=== PATIENT | female | born 1975 | race Caucasian/White ===

== ENCOUNTER 2016-05-06 11:01 | Emergency (ER) ==
--- NOTE | 2016-05-06 11:34 | PROVIDER DOCUMENTATION ---
HPI-Abdominal Pain/GI Problem <Katerine Frausto - Last Filed: 05/06/16 12:42> - General Source: patient - History of Present Illness-ABD Nature of Presenting Problems: 2 days diarrhea x 10 no blood no vomiting just nauseated belly pain nasal congestion Abdominal Pain Onset Location: reports: generalized abdomen Pain Radiation: reports: no radiation Quality of Pain: reports: cramping Severity in ED: reports: moderate Onset/Duration: reports: 2 days ago Timing: reports: still present, constant Activities at Onset: reports: none Exposure to sick contacts?: No Modifying Factors: improves with: nothing Associated Symptoms: reports: diarrhea, loss of appetite, nausea, weakness. denies: constipation, fever/chills, vomiting Last BM: this morning Dark Stools Present?: reports: none noticed Rectal Bleeding: reports: none # of Diarrhea Episodes: 10 Rectal Pain: reports: none # of Vomiting Episodes: 0 <Jensen Higgins - Last Filed: 05/06/16 13:02> - General Chief Complaint: Diarrhea Stated Complaint: COLD SX/ABD PX/DIARRHEA Time Seen by Provider: 05/06/16 11:28 Allergies/Adverse Reactions: Patient Allergies Allergy/AdvReac Type Severity Reaction Status Date / Time Sulfa (Sulfonamide Allergy Severe ANAPHYLAXIS Verified 03/07/16 18:05 Antibiotics) egg Allergy ANAPHYLAXIS Verified 03/07/16 18:05 nut - unspecified Allergy ANAPHYLAXIS Verified 03/07/16 18:05 milk AdvReac Unknown Verified 03/07/16 18:05 tree nut AdvReac Unknown Verified 03/07/16 18:05 Home Medications: Home Medication List Medication Instructions Recorded Confirmed Last Taken Type Albuterol Sulfate [Proair Hfa] 2 puff IH Q4H PRN PRN 11/24/14 03/07/16 11/04/15 History Ondansetron [Zofran] 4 mg PO Q6H PRN PRN #20 tablet 11/04/15 03/07/16 Unknown Rx Albuterol 2.5MG/Ipratrop 0.5MG 3 ml INH Q4-6H PRN PRN 11/15/15 03/07/16 Unknown History [Duoneb (A & A)] Buspirone HCl [Buspar] 10 mg PO BID PRN PRN 11/15/15 03/07/16 Unknown History Fexofenadine/Pse E.r. 12 Hr 1 each PO DAILY 11/15/15 03/07/16 Unknown History [Gaby-D 12 Hour] Polyethylene Glycol 3350 [Miralax] 17 gm PO DAILY 11/15/15 03/07/16 Unknown History Zolpidem [Ambien] 5 mg PO HS #30 tablet 11/17/15 03/07/16 Unknown Rx Doxycycline 100 mg PO BID #60 capsule 03/06/16 03/07/16 Unknown Rx Fluticasone/Salmet 500/50 INH 1 puff INH RTBID #3 inhaler 03/06/16 03/07/16 Unknown Rx [Advair 500/50 Diskus] Amoxicillin [Amoxil] 875 mg PO BID #14 tablet 03/07/16 Unknown Rx Chlorpheniramine/Dextromethorp 1 each PO Q6H PRN PRN #30 tablet 03/07/16 Unknown Rx [Coricidin Hbp Cough & Cold Tab] Prednisone 20 mg PO DAILY #15 tablet 03/07/16 Unknown Rx Diphenoxylate/Atropine [Lomotil] 1 each PO 4XDAY PRN PRN #20 tablet 05/06/16 Unknown Rx Guaifenesin/Codeine [Robitussin-AC] 10 ml PO Q4H PRN PRN #8 oz 05/06/16 Unknown Rx Review of Systems - Adult - REVIEW OF SYSTEMS - ADULT Constitutional: denies: chills, fever, fatique, night sweats Eyes: denies: discharge, redness Ears, Nose, Mouth & Throat: reports: sinus problem. denies: ear pain, throat pain Cardiovascular: denies: chest pain, irregular heart rate, palpitations Respiratory: reports: cough, shortness of breath. denies: hemoptysis, wheezing Genitourinary: reports: see HPI Musculoskeletal: reports: muscle aches Integumentary: reports: no symptoms reported Neurological: denies: headache/migraines Endocrine: reports: no symptoms reported Hematologic/Lymphatic: reports: no symptoms reported Allergic/Immunologic: reports: no symptoms reported <Jensen Higgins - Last Filed: 05/06/16 13:02> Past History - Adult - PAST MEDICAL HISTORY-ADULT Review of Records: reports: Nursing Assessment Review, Medications Reviewed, Social history reviewed & non-contributory. Cardiovascular: reports: HTN Respiratory: reports: asthma Psychiatric: reports: anxiety, depression - PRIOR SURGERIES/PROCEDURES Surgical/Procedure History: reports: , orthopedic (extremity) (elbow Sx ), other (breast Sx) - PRIOR HOSPITALIZATIONS Prior Hospitalizations: reports: none - IMMUNIZATION STATUS Childhood Immunizations: See Nurse Assessment Flu Vaccine: See Nurse Assessment - FAMILY HISTORY Family History: reviewed, not pertinent <Jensen Higgins - Last Filed: 05/06/16 13:02> Physical Exam-General - PHYSICAL EXAM-ADULT Initial Vital Signs Reviewed: Yes - CONSTITUTIONAL General Appearance: mild distress - EYES Eyes: PERRL/EOMI, pink conjunctivae - HEAD, EARS, NOSE, MOUTH & THROAT HENMT: normocephalic/atraumatic, TMs normal, pharynx normal - NECK Neck: full range of motion, supple - RESPIRATORY Respiratory: lungs clear - CARDIOVASCULAR Cardiovascular: regular rate, rhythm - GASTROINTESTINAL (ABDOMEN) Abdominal Exam: soft - MUSCULOSKELETAL Extremity: normal range of motion <Jensen Higgins - Last Filed: 05/06/16 13:02> Progress - PLAN OF CARE/RESULTS Progress/Plan/Lab Results: Orders Category Date Time Status ED: Urine Bedside ORDERED Care 05/06/16 11:34 Active Saline Loc DIRECTED Care 05/06/16 11:34 Active NPO Diet 05/06/16 11:34 Active AMYLASE [CHEM] Stat Lab 05/06/16 11:47 Received CBC WITH ELECTRONIC DIFF [HEME] Stat Lab 05/06/16 11:34 Ordered COMPREHENSIVE METABOLIC PANEL [CHEM] Stat Lab 05/06/16 11:47 Received LIPASE [CHEM] Stat Lab 05/06/16 11:[address] W/POSS RFLX CULT [URINALYSIS] Stat Lab 05/06/16 11:34 Uncollected 0.9% Sodium Chloride Inj [Ns] 1,000 ml Med 05/06/16 11:35 Active IV 999 mls/hr Ondansetron [Zofran] Med 05/06/16 11:36 Discontinued 4 mg IV NOW ONE Vital Signs - 24 hr 05/06/16 11:07 Temperature 97.9 F Pulse Rate 101 H Respiratory 20 Rate Blood Pressure 147/86 O2 Sat by Pulse 98 Oximetry Laboratory Tests 05/06/16 05/06/16 11:47 12:03 WBC 7.72 RBC 4.76 Hgb 11.7 L Hct 36.0 L MCV 75.6 L MCH 24.6 L MCHC 32.5 L RDW Std Deviation 16.0 H Plt Count 315 MPV 9.8 Immature Gran % (Auto) 0.1 Neut % (Auto) 71.6 Lymph % (Auto) 16.1 L Jenkins % (Auto) 6.9 Eos % (Auto) 4.7 Baso % (Auto) 0.6 Immature Gran # (Auto) 0.01 Neut # (Auto) 5.53 Lymph # (Auto) 1.24 Jenkins # (Auto) 0.53 Eos # (Auto) 0.36 Baso # (Auto) 0.05 Sodium 137 Potassium 3.7 Chloride 103 Carbon Dioxide 20 L Anion Gap 14 BUN 9 Creatinine 0.7 Estimated GFR/1.73 m2 > 60 BUN/Creatinine Ratio 13 Glucose 105 H Calculated Osmolality 273 Calcium 9.4 Total Bilirubin 0.40 AST 27 ALT 20 Alkaline Phosphatase 74 Total Protein 7.7 Albumin 4.1 Globulin 4.0 Albumin/Globulin Ratio 1.0 Amylase 19 L Lipase 18 <Katerine Frausto - Last Filed: 05/06/16 12:42> Departure <Katerine Frausto - Last Filed: 05/06/16 12:42> - Departure Time of Disposition Order: 12:59 Certified Medical Emergency: Emergent <Jensen Higgins - Last Filed: 05/06/16 13:02> - Departure DIAGNOSIS: Diarrhea Qualifiers: Diarrhea type: unspecified type Qualified Code(s): R19.7 - Diarrhea, unspecified URI (upper respiratory infection) Qualifiers: URI type: unspecified viral URI Qualified Code(s): J06.9 - Acute upper respiratory infection, unspecified; B97.89 - Other viral agents as the cause of diseases classified elsewhere Disposition: HOME 01 Condition: Stable Additional Instructions: ED Follow Up Instructions: You have been treated by a care provider in the Emergency Department. These instructions are being provided to you so you can have an understanding of how to care for yourself upon discharge. Upon discharge from the Emergency Department, you are responsible for making arrangements for follow-up care by a physician of your choice. Take all prescribed medications as directed. Return to the Emergency Department immediately for any new or worsening symptoms. You may call the Physician Referral phone number at [phone] to obtain a list of Physicians who are taking new patients. Prescriptions: Diphenoxylate/Atropine [Lomotil] 1 each PO 4XDAY PRN PRN #20 tablet PRN Reason: Diarrhea Guaifenesin/Codeine [Robitussin-AC] 10 ml PO Q4H PRN PRN #8 oz PRN Reason: Cough Referrals: Celestino Townsend MD [Primary Care Provider] - Attestation - Scribe Verification/Attestation Scribe:: Katerine Frausto Acting as Scribe for:: Jensen Higgins Scribe documention review:: This chart was documented by a scribe and accurately reflects the service the provider performed and the decisions made by the provider. <Katerine Frausto - Last Filed: 05/06/16 12:42> Physician Attestation
[2016-05-06] MEDS ORDERED: NS 1,000 ML IV ONE (11:35)
[2016-05-06] MEDS ORDERED: ZOFRAN IV ONE (11:36)
[2016-05-06 12:10] LABS: MANUAL DIFF NEEDED? NO
[2016-05-06 12:11] LABS: BASO% 0.6 % (0.0-0.8); EOS# 0.36 X1000 (0.0-0.7); EOS% 4.7 % (0.0-10.0); HEMOGLOBIN 11.7 g/dL (12.0-16.0); IMM GRAN# 0.01 X1000 (0.0-0.04); IMM GRAN% 0.1 % (0.0-0.5); LYMPH# 1.24 X1000 (1.2-3.4); LYMPH% 16.1 % (20.5-51.1); MCH 24.6 PG (27-31); MCHC 32.5 g/dL (33-37); MCV 75.6 FL (81-99); MONO# 0.53 X1000 (0.11-0.59); MONO% 6.9 % (1.7-9.3); MPV 9.8 FL (7.4-10.4); NEUT% 71.6 % (42.2-75.2); PLT 315 X1000 (130-400); RBC 4.76 XMIL (4.2-5.4)
[2016-05-06 12:25] LABS: AGAP 14; ALBUMIN 4.1 g/dL (3.5-5.0); ALKALINE PHOSPHATASE 74 U/L (32-104); AMYLASE 19 U/L (20-200); BUN 9 mg/dL (8-22); CALCIUM 9.4 mg/dL (8.8-10.2); CHLORIDE 103 mmol/L (98-107); COSMO 273; GOT 27 U/L (10-30); GPT 20 U/L (10-36); LIPASE 18 U/L (13-60); POTASSIUM 3.7 mmol/L (3.5-5.1); SODIUM 137 mmol/L (136-145); TCO2 20 mmol/L (25-35); TOTAL PROTEIN 7.7 g/dL (6.3-8.3)
[2016-05-06] MEDS ORDERED: DUONEB (A & A) INH ONE (12:58)
[2016-05-06] MEDS ORDERED: ALBUTEROL NEB INH ONE (12:58)
[2016-05-06 13:10] LABS: URINE CULTURE PL NEEDED? NO; URINE SOURCE CLEAN CATCH
[2016-05-06 13:14] LABS: BILIRUBIN URINE NEGATIVE (NEGATIVE); BLOOD URINE NEGATIVE (NEGATIVE); CLARITY CLEAR (CLEAR); COLOR YELLOW; GLUCOSE URINE NEGATIVE (NEGATIVE); LEUKOCYTES URINE NEGATIVE (NEGATIVE); NITRITE URINE NEGATIVE (NEGATIVE); PROTEIN URINE NEGATIVE (NEGATIVE); SP GRAVITY URINE 1.015; UROBILINOGEN URINE NORMAL
[2016-05-06 13:22] VITALS: BP 114/79
[2016-05-06 13:30] LABS: URINE EPITHELIAL CELLS >10 /HPF (<10); URINE WBC <10 /HPF (<10)
== END 2016-05-06 13:36 | disposition home or self-care (01) ==
LOC: P.ED 11:01
DX: J06.9 Acute upper respiratory infection, unspecified (principal); R19.7 Diarrhea, unspecified; R05 Cough; R06.02 Shortness of breath; M79.1 Myalgia; I10 Essential (primary) hypertension; F41.9 Anxiety disorder, unspecified; F32.9 Major depressive disorder, single episode, unspecified; Z79.899 Other long term (current) drug therapy; Z79.52 Long term (current) use of systemic steroids; Z79.51 Long term (current) use of inhaled steroids
CPT/HCPCS: 80053; 81001; 81025; 82150; 83690; 85025; 94640; 94760; 96361; 96374; J2405; J7030

== ENCOUNTER 2016-05-09 16:51 | Emergency (ER) ==
[2016-05-09] MEDS ORDERED: DECADRON IM ONE (18:13)
--- NOTE | 2016-05-09 18:13 | PROVIDER DOCUMENTATION ---
HPI-EENT General - General Chief Complaint: Return/Recheck Stated Complaint: COLD SX Time Seen by Provider: 05/09/16 18:00 Source: patient Allergies/Adverse Reactions: Patient Allergies Allergy/AdvReac Type Severity Reaction Status Date / Time Sulfa (Sulfonamide Allergy Severe ANAPHYLAXIS Verified 03/07/16 18:05 Antibiotics) egg Allergy ANAPHYLAXIS Verified 03/07/16 18:05 nut - unspecified Allergy ANAPHYLAXIS Verified 03/07/16 18:05 milk AdvReac Unknown Verified 03/07/16 18:05 tree nut AdvReac Unknown Verified 03/07/16 18:05 Home Medications: Home Medication List Medication Instructions Recorded Confirmed Last Taken Type Albuterol Sulfate [Proair Hfa] 2 puff IH Q4H PRN PRN 11/24/14 03/07/16 11/04/15 History Ondansetron [Zofran] 4 mg PO Q6H PRN PRN #20 tablet 11/04/15 03/07/16 Unknown Rx Albuterol 2.5MG/Ipratrop 0.5MG 3 ml INH Q4-6H PRN PRN 11/15/15 03/07/16 Unknown History [Duoneb (A & A)] Buspirone HCl [Buspar] 10 mg PO BID PRN PRN 11/15/15 03/07/16 Unknown History Fexofenadine/Pse E.r. 12 Hr 1 each PO DAILY 11/15/15 03/07/16 Unknown History [Gaby-D 12 Hour] Polyethylene Glycol 3350 [Miralax] 17 gm PO DAILY 11/15/15 03/07/16 Unknown History Zolpidem [Ambien] 5 mg PO HS #30 tablet 11/17/15 03/07/16 Unknown Rx Doxycycline 100 mg PO BID #60 capsule 03/06/16 03/07/16 Unknown Rx Fluticasone/Salmet 500/50 INH 1 puff INH RTBID #3 inhaler 03/06/16 03/07/16 Unknown Rx [Advair 500/50 Diskus] Amoxicillin [Amoxil] 875 mg PO BID #14 tablet 03/07/16 Unknown Rx Chlorpheniramine/Dextromethorp 1 each PO Q6H PRN PRN #30 tablet 03/07/16 Unknown Rx [Coricidin Hbp Cough & Cold Tab] Prednisone 20 mg PO DAILY #15 tablet 03/07/16 Unknown Rx Diphenoxylate/Atropine [Lomotil] 1 each PO 4XDAY PRN PRN #20 tablet 05/06/16 Unknown Rx Guaifenesin/Codeine [Robitussin-AC] 10 ml PO Q4H PRN PRN #8 oz 05/06/16 Unknown Rx Fluticasone 50 Mcg Nasal [place] 1 spray MALA BID #1 bottle 05/09/16 Unknown Rx [Flonase] - History of Present Illness-EENT General Nature of Presenting Problem: PATIENT REPORTS SEEN HERE "A FEW DAYS AGO" AND WAS GIVEN RX FOR COUGH MED AND ANTI-DIARRHEAL MED. STATES COUGH HAS IMPROVED AND DIARRHEA HAS RESOLVED, BUT IS NOW HAVING NASAL CONGESTION. STATES "MY WHOLE HEAD IS JUST STOPPED UP". EENT Location: reports: nose Quality of Pain: reports: fullness, pressure, throbbing Severity: reports: moderate Onset/Duration: reports: 2 days ago Timing: reports: getting worse Prearrival Treatment: Initiated prescription meds Associated Symptoms: reports: nasal congestion/drainage Similar Symptoms Previously?: Yes Recently seen or treated by another doctor?: Yes - Throat/Dental Throat/Dental Problem Symptoms: reports: none Review of Systems - Adult - REVIEW OF SYSTEMS - ADULT Constitutional: reports: no symptoms reported Eyes: reports: no symptoms reported Ears, Nose, Mouth & Throat: reports: see HPI Cardiovascular: reports: no symptoms reported Respiratory: reports: cough Gastrointestinal: reports: no symptoms reported Genitourinary: reports: no symptoms reported Musculoskeletal: reports: no symptoms reported Integumentary: reports: no symptoms reported Neurological: reports: no symptoms reported Psychiatric: reports: no symptoms reported Endocrine: reports: no symptoms reported Hematologic/Lymphatic: reports: no symptoms reported Allergic/Immunologic: reports: no symptoms reported Past History - Adult - PAST MEDICAL HISTORY-ADULT Review of Records: reports: Nursing Assessment Review, Medications Reviewed, Social history reviewed & non-contributory. Cardiovascular: reports: HTN Respiratory: reports: asthma Psychiatric: reports: anxiety, depression - PRIOR SURGERIES/PROCEDURES Surgical/Procedure History: reports: , orthopedic (extremity) (elbow Sx ), other (breast Sx) - PRIOR HOSPITALIZATIONS Prior Hospitalizations: reports: none - IMMUNIZATION STATUS Childhood Immunizations: See Nurse Assessment Flu Vaccine: See Nurse Assessment - FAMILY HISTORY Family History: reviewed, not pertinent - SOCIAL HISTORY Smoking: quit greater than 1 year Physical Exam- EENT - Physical Exam EENT Initial Vital Signs Reviewed: Yes General Appearance: appears well Eye Exam: bilateral eye: normal inspection Ear Exam: bilateral ear: auricle normal, canal normal, TM normal Nasal Exam: other (TURBINATES WITH ERYTHEMA) Throat Exam: pharynx normal Neck: non-tender, full range of motion, supple Respiratory: wheezing Cardiovascular: regular rate, rhythm Extremity: normal range of motion Integumentary: normal color, normal turgor, warm/dry Neurologic: grossly normal Psych/Mental Status: normal mood/affect, normal thought content, normal thought process, oriented x 3 Departure - Departure Time of Disposition Order: 18:14 DIAGNOSIS: Nasal congestion, Allergic rhinitis Disposition: HOME 01 Certified Medical Emergency: Emergent Condition: Good Prescriptions: Fluticasone 50 Mcg Nasal [place] [Flonase] 1 spray MALA BID #1 bottle Referrals: Celestino Townsend MD [Primary Care Provider] - (FOLLOW UP IF NOT IMPROVED IN 7 DAYS. )
[2016-05-09 18:41] VITALS: BP 157/97
== END 2016-05-09 18:40 | disposition home or self-care (01) ==
LOC: P.ED 16:51
DX: J30.9 Allergic rhinitis, unspecified (principal); R09.81 Nasal congestion; I10 Essential (primary) hypertension; J45.909 Unspecified asthma, uncomplicated; F41.9 Anxiety disorder, unspecified; F32.9 Major depressive disorder, single episode, unspecified; Z87.891 Personal history of nicotine dependence; Z79.899 Other long term (current) drug therapy; Z79.52 Long term (current) use of systemic steroids; Z79.51 Long term (current) use of inhaled steroids

== ENCOUNTER 2016-09-23 17:02 | Inpatient (IN) ==
[2016-09-23] MEDS ORDERED: SOLU-MEDROL IV ONE (17:33)
[2016-09-23] MEDS ORDERED: DUONEB (A & A) INH ONE (17:34)
--- NOTE | 2016-09-23 17:48 | PROVIDER DOCUMENTATION ---
This chart was entered by Katerine Frausto Scribe, acting as scribe for Jensen Higgins MD. HPI-Respiratory General - General Source: patient - History of Present Illness-Resp Quality of Pain: reports: tightness Severity in ED: reports: mild Onset/Duration: reports: this morning Timing: reports: still present Exposure: reports: unknown cause Cough Quality/Degree: reports: productive cough Episode Frequency: frequent episodes Current Respiratory Medication Therapy: Initiated see nurses note Modifying Factors: improves with: nothing Associated Symptoms: reports: cough, nasal congestion, shortness of breath, wheezing. denies: chest pain/soreness, dizziness, earache, facial pain, fever/ chills, flu-like symptoms, headache, heart racing, hurts to breathe, hyperventilating, lightheadedness, muscle/bodyaches, nasal drainage, sinus pain , short of breath, sore throat, sweaty Similar Symptoms Previously?: Yes Recently seen or treated by another doctor?: No <Jensen Higgins - Last Filed: 09/23/16 17:47> - General Source: patient <Kb DuckworthAbril - Last Filed: 09/23/16 19:16> - General Chief Complaint: Shortness of Breath Stated Complaint: ASTHMA ATTACK Time Seen by Provider: 09/23/16 17:29 Allergies/Adverse Reactions: Patient Allergies Allergy/AdvReac Type Severity Reaction Status Date / Time Sulfa (Sulfonamide Allergy Severe ANAPHYLAXIS Verified 09/23/16 17:08 Antibiotics) egg Allergy ANAPHYLAXIS Verified 09/23/16 17:08 nut - unspecified Allergy ANAPHYLAXIS Verified 09/23/16 17:08 milk AdvReac Unknown Verified 09/23/16 17:08 tree nut AdvReac Unknown Verified 09/23/16 17:08 Home Medications: Home Medication List Medication Instructions Recorded Confirmed Last Taken Type Albuterol Sulfate [Proair Hfa] 2 puff IH Q4H PRN PRN 11/24/14 07/17/16 11/04/15 History Albuterol 2.5MG/Ipratrop 0.5MG 3 ml INH Q4-6H PRN PRN 11/15/15 07/17/16 Unknown History [Duoneb (A & A)] Buspirone HCl [Buspar] 10 mg PO BID PRN PRN 11/15/15 07/17/16 Unknown History Fexofenadine/Pse E.r. 12 Hr 1 each PO DAILY 11/15/15 07/17/16 Unknown History [Gaby-D 12 Hour] Zolpidem [Ambien] 5 mg PO HS #30 tablet 11/17/15 07/17/16 Unknown Rx Fluticasone/Salmet 500/50 INH 1 puff INH RTBID #3 inhaler 03/06/16 07/17/16 Unknown Rx [Advair 500/50 Diskus] Fluticasone 50 Mcg Nasal [place] 1 spray MALA BID #1 bottle 05/09/16 07/17/16 Unknown Rx [Flonase] Budesonide [Pulmicort] 0.5 mg IH BID #28 ampul.neb 07/17/16 Unknown Rx Diphenoxylate/Atropine [Lomotil] 1 - 2 each PO Q6H PRN PRN #20 07/17/16 Unknown Rx tablet Azithromycin [Zithromax Z-Hermilo] 250 mg PO DIRECTED #1 pkg 07/19/16 Unknown Rx Guaifenesin/D-Methorphan Hb/PE 1 each PO Q4-6H PRN PRN #20 tablet 07/19/16 Unknown Rx [Deconex Dmx Tablet] Prednisone 20 mg PO DAILY #6 tablet 07/19/16 Unknown Rx Acetaminophen with Codeine 1 each PO 4XDAY PRN PRN #20 tablet 07/26/16 Unknown Rx [Tylenol with Codeine #3 Tablet] Trazodone [Desyrel] 100 mg PO QHS #14 tablet 07/26/16 Unknown Rx Review of Systems - Adult - REVIEW OF SYSTEMS - ADULT Constitutional: denies: chills, fever Eyes: denies: blurred vision, double vision Ears, Nose, Mouth & Throat: reports: sinus problem (congestion and drainage). denies: ear pain, nose pain, throat pain Cardiovascular: denies: chest pain, heart murmur, irregular heart rate (tachy) Respiratory: reports: cough, shortness of breath, wheezing Gastrointestinal: denies: abdominal pain, diarrhea, nausea, vomiting Genitourinary: denies: dysuria, hematuria, urinary retention Musculoskeletal: denies: bone pain, joint pain, joint swelling, neck pain Integumentary: denies: hives, itching, rash Neurological: reports: no symptoms reported Psychiatric: reports: no symptoms reported Endocrine: reports: no symptoms reported Hematologic/Lymphatic: reports: no symptoms reported Allergic/Immunologic: reports: no symptoms reported All Other Systems: Reviewed and Negative <Jensen Higgins - Last Filed: 09/23/16 17:47> - REVIEW OF SYSTEMS - ADULT Constitutional: denies: fever <Kb Duckworth - Last Filed: 09/23/16 19:16> Past History - Adult - PAST MEDICAL HISTORY-ADULT Review of Records: reports: Nursing Assessment Review, Medications Reviewed, Social history reviewed & non-contributory. Major Childhood Illnesses: reports: denies history Cardiovascular: reports: HTN Respiratory: reports: asthma Gastrointestinal: reports: denies history Obstetrical/Gynecological: reports: denies history Genitourinary: reports: denies history Musculoskeletal: reports: denies history Neurological: reports: denies history Psychiatric: reports: anxiety, depression Endocrine/Immune: reports: denies history Other Conditions: reports: denies history - PRIOR SURGERIES/PROCEDURES Surgical/Procedure History: reports: , orthopedic (extremity) (elbow Sx ), other (breast Sx) - PRIOR HOSPITALIZATIONS Prior Hospitalizations: reports: none - IMMUNIZATION STATUS Childhood Immunizations: See Nurse Assessment Flu Vaccine: See Nurse Assessment - FAMILY HISTORY Family History: reviewed, not pertinent - SOCIAL HISTORY Smoking: quit greater than 1 year, cigarettes Substance Use: denies Living Situation: family <Jensen Higgins - Last Filed: 09/23/16 17:47> - PAST MEDICAL HISTORY-ADULT Review of Records: reports: Old Records Reviewed, Nursing Assessment Review, Medications Reviewed, Social history reviewed & non-contributory. <Kb Duckworth - Last Filed: 09/23/16 19:16> Physical Exam-General - PHYSICAL EXAM-ADULT Initial Vital Signs Reviewed: Yes - CONSTITUTIONAL General Appearance: alert, mild distress - EYES Eyes: PERRL/EOMI, pink conjunctivae - HEAD, EARS, NOSE, MOUTH & THROAT HENMT: normal ENT inspection - NECK Neck: normal inspection - RESPIRATORY Respiratory: rales (bilateral), wheezing, increased rate - CARDIOVASCULAR Cardiovascular: normal peripheral pulses, tachycardia - GASTROINTESTINAL (ABDOMEN) Abdominal Exam: normal bowel sounds, non tender, soft - LYMPHATIC Lymphatic: no adenopathy - MUSCULOSKELETAL Back Exam: normal inspection Extremity: normal range of motion, normal inspection - SKIN Integumentary: normal color, normal turgor, warm/dry - NEUROLOGIC Neurologic: grossly normal - PSYCHIATRIC Psych/Mental Status: normal mood/affect, oriented x 3 <Jensen Higgins - Last Filed: 09/23/16 17:47> - PHYSICAL EXAM-ADULT Initial Vital Signs Reviewed: Yes - CONSTITUTIONAL General Appearance: appears well, alert, mild distress <Kb Duckworth - Last Filed: 09/23/16 19:16> Progress - CHANGE OF SHIFT REPORT (ED Provider) Report Given and Care Transferred to:: Dr. Duckworth Time of Transfer: 17:50 <Jensen Higgins - Last Filed: 09/23/16 17:47> - REASSESSMENT Reassessment #1 Time Reassessed: 18:18 (pt feels mildly improved howeverstill feels fairly tight and has moderate diffuse wheezing currently) Status: improving Reassessment #2 Time Reassessed: 19:13 (pt again only feels mildly better, still wheezing and now SaO2 is 90% on RA) Status: improving - CONSULTS/PCP/HOSPITALIST Notification #1 *Consult/PCP/Hospitalist*: Dr Dietrich Time Discussed: 19:15 Consult Disposition: Admit <Kb Duckworth - Last Filed: 09/23/16 19:16> - PLAN OF CARE/RESULTS Progress/Plan/Lab Results: Vital Signs - 8 hr 09/23/16 17:04 09/23/16 17:56 09/23/16 18:20 Temperature 98.5 F Pulse Rate 106 H 104 H 92 H Respiratory Rate 24 17 14 Blood Pressure 159/93 O2 Sat by Pulse Oximetry 93 L 95 92 L 09/23/16 19:06 Temperature Pulse Rate 100 H Respiratory Rate 17 Blood Pressure 155/97 O2 Sat by Pulse Oximetry 91 L Orders Category Date Time Status Admit - [facility] Routine AdmDCTranf 09/23/16 19:09 Ordered Activity - Up Ad Jamia ORDERED Care 09/23/16 19:09 Active Saline Loc DIRECTED Care 09/23/16 19:09 Active Vital Signs Order ARRIVAL TO ROOM Care 09/23/16 19:09 Active Regular Diet Diet 09/23/16 19:10 Active Albuterol 2.5MG/Ipratrop 0.5MG [Duoneb (A & A)] Med 09/23/16 17:34 Discontinued 3 ml INH NOW ONE Albuterol 2.5MG/Ipratrop 0.5MG [Duoneb (A & A)] Med 09/23/16 19:30 Ordered 3 ml INH RTQ4H Albuterol [Albuterol Neb] Med 09/23/16 18:16 Discontinued 5 mg INH NOW ONE Albuterol [Albuterol Neb] Med 09/23/16 19:09 Discontinued 5 mg INH NOW ONE Methylprednisolone Sod Succ [Solu-Medrol] Med 09/24/16 01:00 Ordered 125 mg IV Q8HR Methylprednisolone Sod Succ [Solu-Medrol] Med 09/23/16 17:33 Discontinued 125 mg IV STAT ONE Aerosol Treatments Routine Ot 09/23/16 17:34 Active Aerosol Treatments Routine Ot 09/23/16 18:17 Active Aerosol Treatments Routine Oth 09/23/16 19:09 Active Aerosol Treatments Routine Ot 09/23/16 19:10 Active Aerosol Treatments Stat Ot 09/23/16 17:34 Active Aerosol Treatments Stat Ot 09/23/16 18:17 Active Aerosol Treatments Stat Oth 09/23/16 19:09 Active Aerosol Treatments Stat Ot 09/23/16 19:10 Active Oxygen Device Routine Ot 09/23/16 19:10 Active Departure <Jensen Higgins - Last Filed: 09/23/16 17:47> - Departure Date of Disposition Decision: 09/23/16 Time of Disposition Decision: 19:13 Certified Medical Emergency: Emergent - Critical Care Note This patient required my direct & personal management of CC.: No <Kb Duckworth - Last Filed: 09/23/16 19:16> - Departure DIAGNOSIS: Asthma exacerbation Disposition: ADMITTED INPATIENT 09 Condition: Fair Referrals and Follow-Ups: Celestino Townsend MD [Primary Care Provider] - This chart was documented by the indicated scribe, (Katerine Frausto Scribe) and accurately reflects the services I performed and decisions made by me, Jensen Higgins MD, as attested by the provider's signature.
[2016-09-23] MEDS ORDERED: ALBUTEROL NEB INH ONE ×2 (18:16→19:09)
[2016-09-23] MEDS: DUONEB (A & A) INH SCH ×2 (20:11→23:00)
[2016-09-24] MEDS ORDERED: SOLU-MEDROL IV SCH ×2 (01:00→17:00)
[2016-09-24] MEDS: DUONEB (A & A) INH SCH ×6 (03:50→22:33)
[2016-09-24] MEDS: SOLU-MEDROL IV SCH ×3 (08:27→17:25)
[2016-09-24] MEDS ORDERED: BUSPAR PO PRN (09:16)
[2016-09-24] MEDS ORDERED: VENTOLIN HFA INH PRN (09:16)
--- NOTE | 2016-09-24 10:23 | Diag Imaging Result Doc PS360 ---
CHEST-2 VIEWS - 09/24/2016 INDICATION: Asthma exac. TECHNIQUE: COMPARISON: 07/19/2016 FINDINGS: The lungs are normally expanded and clear. Heart size and mediastinal contours are normal. No pneumothorax or pleural effusion. IMPRESSION: Negative exam. Electronically signed by Morris Patel 09/24/2016 10:21 AM
[2016-09-24 10:52] LABS: AGAP 14; BUN 11 mg/dL (8-22); CALCIUM 9.4 mg/dL (8.8-10.2); CHLORIDE 103 mmol/L (98-107); COSMO 280; POTASSIUM 3.8 mmol/L (3.5-5.1); SODIUM 137 mmol/L (136-145); TCO2 20 mmol/L (25-35)
[2016-09-24 10:55] LABS: BASO% 0.1 % (0.0-0.8); HEMATOCRIT 35.6 % (37.0-47.0); HEMOGLOBIN 11.6 g/dL (12.0-16.0); IMM GRAN# 0.04 X1000 (0.0-0.04); IMM GRAN% 0.4 % (0.0-0.5); LYMPH# 0.65 X1000 (1.2-3.4); MANUAL DIFF NEEDED? YES; MCH 25.7 PG (27-31); MCHC 32.6 g/dL (33-37); MCV 78.8 FL (81-99); MONO# 0.24 X1000 (0.11-0.59); MONO% 2.2 % (1.7-9.3); MPV 10.3 FL (7.4-10.4); NEUT% 91.3 % (42.2-75.2); PLT 390 X1000 (130-400); RBC 4.52 XMIL (4.2-5.4)
[2016-09-24] MEDS: ALLEGRA-D 12 HOUR PO SCH (11:22)
[2016-09-24] MEDS: FLONASE NAS SCH ×2 (11:23→20:11)
[2016-09-24 11:35] LABS: LYMPHS 8 % (21-51); MONO 3 % (1-9)
[2016-09-24] MEDS: ADVAIR 500/50 DISKUS INH SCH ×2 (11:54→19:40)
[2016-09-24] MEDS ORDERED: AMBIEN PO PRN (12:06)
--- NOTE | 2016-09-24 15:51 | HISTORY AND PHYSICAL ---
PRIMARY CARE PHYSICIAN: Celestino Townsend MD CHIEF COMPLAINT: Shortness of breath. HISTORY OF PRESENTING ILLNESS: This is a 41-year-old female who presented to [place] to [facility] ER with complaints of shortness of breath that have progressively worsened over the last couple of days. She has a history of asthma. She was noted to be wheezing. Nonproductive cough. She was given in the emergency room albuterol nebulizers x2, and DuoNeb x1 and Solu-Medrol 125 mg IV x1 and was admitted for further evaluation and treatment. PAST MEDICAL HISTORY: Asthma, hypertension and anxiety. PAST SURGICAL HISTORY: . Right elbow surgery. Breast reduction. FAMILY HISTORY: Coronary artery disease. SOCIAL HISTORY: She currently lives with her mom. Denied any current tobacco use. States that she was a pack a day smoker for greater than 10 years, but had been quit for the past 10 years. It is noted that the mom continues to smoke in her home and denies alcohol and illicit drug use. ALLERGIES: Sulfa, eggs, nuts, milk and tree nuts. HOME MEDICATIONS: 1. Advair 500/50, 1 inhalation b.i.d. 2. Lomotil p.r.n. will be held. 3. Deconex DM 1 p.o. q.4-6 hours p.r.n. will be held. 4. ProAir 2 puffs inhalation q.4 hours p.r.n. 5. Pulmicort 0.5 mg inhalation b.i.d. 6. BuSpar 10 mg p.o. b.i.d. p.r.n. 7. Gaby D 12 hour 1 p.o. daily. 8. Flonase 1 spray nasally b.i.d. 9. Desyrel 100 mg p.o. at bedtime. 10. Ambien 5 mg p.o. at bedtime. LABORATORY DATA: No laboratory data was obtained while in the ER. REVIEW OF SYSTEMS: She denies any fever, chills, blurred vision, dizziness, chest pain. She has a nonproductive cough shortness of breath. She denies any abdominal pain, constipation, diarrhea, burning or hurting with urination. PHYSICAL EXAMINATION: VITAL SIGNS: On arrival showed a temperature of 98.5 degrees, pulse 106, respirations 24, blood pressure 159/93, saturating 93% on room air. GENERAL: This is a 41-year-old female who is sitting up in the bed, and answers questions appropriately. HEENT: Normocephalic and atraumatic. Pupils are equal, round, reactive to light. Extraocular movements are intact. Oropharynx and nares are clear. NECK: Supple. LUNGS: Wheezing throughout entire lung rosenbaum. Equal lung expansion and chest wall movement. HEART: With regular rate and rhythm. No murmurs, rubs, or gallops. ABDOMEN: Soft, nontender, nondistended. Bowel sounds are present x4 quadrants. EXTREMITIES: No clubbing, cyanosis, or edema. NEUROLOGICAL: The cranial nerves 2-12 are grossly intact. ASSESSMENT: 1. An acute asthma exacerbation. 2. Hypoxia. 3. Hypertension. 4. Anxiety. PLAN: She was admitted to the Medical Unit at [facility]. We will do peak flows b.i.d., DuoNeb q.4. Continue her home medications as previously identified Solu-Medrol 80 mg IV q.8. We will check a chest x-ray, 2 view, CBC and a BMP now. Dictated by JORDY Gale for Nathan Dhaliwal MD cc: JORDY Gale MD Hiteshri S. Bhavsar, MD
[2016-09-24] MEDS: TYLENOL PO PRN ×2 (17:26→22:35)
[2016-09-24] MEDS: PULMICORT INH SCH (19:41)
[2016-09-24] MEDS ORDERED: AMBIEN PO SCH (21:00)
[2016-09-24] MEDS ORDERED: DESYREL PO SCH (21:00)
[2016-09-25] MEDS: SOLU-MEDROL IV SCH ×3 (01:27→17:09)
[2016-09-25] MEDS: DUONEB (A & A) INH SCH ×4 (03:16→14:49)
[2016-09-25] MEDS: ADVAIR 500/50 DISKUS INH SCH (07:49)
[2016-09-25] MEDS: PULMICORT INH SCH (07:49)
[2016-09-25] MEDS: ALLEGRA-D 12 HOUR PO SCH (09:40)
[2016-09-25] MEDS: FLONASE NAS SCH (09:40)
[2016-09-25 11:34] VITALS: BP 142/79
[2016-09-25] MEDS: TYLENOL PO PRN (15:50)
--- NOTE | 2016-09-26 14:41 | DISCHARGE SUMMARY ---
ADMISSION DATE: 09/23/2016 DISCHARGE DATE: 09/25/2016 DIAGNOSES: 1. Acute asthma exacerbation. 2. Hypoxia resolved. 3. Hypertension. 4. Anxiety. DIAGNOSTICS: 09/24/2016 chest x-ray revealed lungs are normal, expanded and clear. Heart size and mediastinal contours are normal. No pneumothorax or pleural effusion. HOSPITAL COURSE: Ms Moses was admitted for an asthma exacerbation. She received DuoNeb q.4 hours and q.2 p.r.n., Solu-Medrol steroids to taper. Thankfully she did improve. She did remain afebrile with room air saturations 93-98%. We did continue her home medications. Peak flows were 210-260. PHYSICAL EXAMINATION: Cardiovascular: Regular rate and rhythm. S1 and S2 are appreciated. Pulmonary: Breath sounds clear with no increased work of breathing noted. Chest does rise and fall symmetrically with respiration. Gastrointestinal: Abdomen is soft, nontender, nondistended with bowel sounds in all 4 quadrants. Back: No CVAT. No spine tenderness. Musculoskeletal: Good range of motion to joints. Neurologic: She is alert, orient x3. Her cranial nerves 2-12 grossly intact. DISCHARGE MEDICATIONS: ProAir 2 puffs q.4 hours p.r.n., BuSpar 10 mg b.i.d., Pulmicort 0.5 b.i.d., Gaby-D daily, Advair 50/500 one puff b.i.d., Flonase 1 spray b.i.d., Ambien 5 mg at bedtime, trazodone 100 at bedtime, steroid Dosepak as directed, Z-Hermilo as directed. DISCHARGE VITAL SIGNS: Blood pressure is 142/79 with a heart rate of 84, respirations 20, temperature is 97.9 degrees oral with room air saturations of 93-96%. DISCHARGE ACTIVITY: As tolerated. FOLLOWUP: She needs to follow up with her primary care physician in the next 1-2 weeks sooner if needed. DISPOSITION: She is being discharged home in stable condition with family members. TIME SPENT: This is a greater than 30 minute discharge. Dictated by JORDY Sims for Nathan Dhaliwal MD cc: JORDY Sims MD
== END 2016-09-25 17:45 | disposition home or self-care (01) ==
LOC: P.MEDSURG 17:02 → P.ED 17:02 → OBSVTOIN 19:28 → SUATTDRO 19:28
PROVIDERS: ATTEND Family Medicine

== ENCOUNTER 2016-12-13 00:40 | Inpatient (IN) ==
[2016-12-13] MEDS ORDERED: DUONEB (A & A) INH ONE ×2 (01:07→01:29)
[2016-12-13] MEDS ORDERED: ALBUTEROL NEB INH ONE (01:29)
[2016-12-13] MEDS ORDERED: SOLU-MEDROL IV ONE (01:29)
[2016-12-13] MEDS ORDERED: ROCEPHIN 1 GM in NS 50 ML IV ONE (01:31)
[2016-12-13 01:54] LABS: MANUAL DIFF NEEDED? NO
[2016-12-13 01:58] LABS: BASO% 0.4 % (0.0-0.8); EOS# 1.08 X1000 (0.0-0.7); EOS% 8.9 % (0.0-10.0); HEMATOCRIT 39.4 % (37.0-47.0); HEMOGLOBIN 12.7 g/dL (12.0-16.0); IMM GRAN# 0.04 X1000 (0.0-0.04); IMM GRAN% 0.3 % (0.0-0.5); LYMPH# 1.24 X1000 (1.2-3.4); LYMPH% 10.2 % (20.5-51.1); MCH 25.4 PG (27-31); MCHC 32.2 g/dL (33-37); MCV 78.8 FL (81-99); MONO# 0.92 X1000 (0.11-0.59); MONO% 7.6 % (1.7-9.3); NEUT% 72.6 % (42.2-75.2); PLT 301 X1000 (130-400)
[2016-12-13 02:13] LABS: AGAP 11; ALBUMIN 3.6 g/dL (3.5-5.0); ALKALINE PHOSPHATASE 81 U/L (32-104); BUN 11 mg/dL (8-22); CALCIUM 8.9 mg/dL (8.8-10.2); CHLORIDE 101 mmol/L (98-107); COSMO 273; GOT 9 U/L (10-30); GPT 9 U/L (10-36); POTASSIUM 3.8 mmol/L (3.5-5.1); SODIUM 137 mmol/L (136-145); TCO2 25 mmol/L (25-35); TOTAL PROTEIN 7.3 g/dL (6.3-8.3)
[2016-12-13] MEDS: DUONEB (A & A) INH SCH ×5 (03:32→19:35)
--- NOTE | 2016-12-13 07:36 | Diag Imaging Result Doc PS360 ---
EXAM: CHEST-2 VIEWS INDICATION: wheezing TECHNIQUE: 2 views COMPARISON: 12/08/2016 FINDINGS: The lungs are grossly clear. There is no discrete pleural fluid collection or pneumothorax. The cardiomediastinal silhouette and central vasculature are grossly unremarkable. IMPRESSION: No evidence of acute pathology by plain radiograph. Electronically signed by Mike Barnett 12/13/2016 7:34 AM
[2016-12-13] MEDS: DUONEB (A & A) INH PRN ×3 (13:10→21:49)
[2016-12-13] MEDS ORDERED: VENTOLIN HFA INH PRN (14:39)
[2016-12-13] MEDS: SOLU-MEDROL IV SCH ×2 (16:01→23:27)
[2016-12-13] MEDS: BREO ELLIPTA 200/25 MCG INH INH SCH (19:35)
[2016-12-13] MEDS: ADVAIR 500/50 DISKUS INH SCH (19:42)
[2016-12-13] MEDS: BUSPAR PO SCH (21:56)
[2016-12-13] MEDS: AMBIEN PO SCH (21:57)
[2016-12-13] MEDS: FLONASE NAS SCH (21:57)
[2016-12-14] MEDS: DUONEB (A & A) INH SCH ×6 (00:27→19:19)
[2016-12-14] MEDS: ROCEPHIN 1 GM in NS 50 ML IV SCH (01:59)
[2016-12-14] MEDS: DUONEB (A & A) INH PRN ×4 (02:35→21:29)
[2016-12-14] MEDS: SOLU-MEDROL IV SCH ×3 (06:16→21:35)
[2016-12-14 06:23] LABS: HEMATOCRIT 40.7 % (37.0-47.0); HEMOGLOBIN 12.7 g/dL (12.0-16.0); IMM GRAN# 0.07 X1000 (0.0-0.04); IMM GRAN% 0.3 % (0.0-0.5); LYMPH# 0.79 X1000 (1.2-3.4); LYMPH% 3.9 % (20.5-51.1); MANUAL DIFF NEEDED? YES; MCH 24.6 PG (27-31); MCHC 31.2 g/dL (33-37); MCV 78.9 FL (81-99); MONO# 0.49 X1000 (0.11-0.59); MONO% 2.4 % (1.7-9.3); MPV 10.5 FL (7.4-10.4); NEUT% 93.4 % (42.2-75.2); PLT 389 X1000 (130-400); RBC 5.16 XMIL (4.2-5.4)
[2016-12-14 06:33] LABS: AGAP 13; BUN 15 mg/dL (8-22); CALCIUM 9.3 mg/dL (8.8-10.2); CHLORIDE 103 mmol/L (98-107); COSMO 277; POTASSIUM 4.3 mmol/L (3.5-5.1); SODIUM 137 mmol/L (136-145); TCO2 22 mmol/L (25-35)
[2016-12-14 06:48] LABS: LYMPHS 12 % (21-51)
[2016-12-14] MEDS: BREO ELLIPTA 200/25 MCG INH INH SCH (07:56)
[2016-12-14] MEDS: ADVAIR 500/50 DISKUS INH SCH ×2 (07:56→19:19)
[2016-12-14] MEDS ORDERED: ZOFRAN IV PRN (08:34)
[2016-12-14] MEDS: ALLEGRA-D 12 HOUR PO SCH (10:20)
[2016-12-14] MEDS: TYLENOL PO PRN (10:20)
[2016-12-14] MEDS: FLONASE NAS SCH ×2 (14:02→21:36)
[2016-12-14] MEDS: BUSPAR PO SCH (21:35)
[2016-12-14] MEDS: AMBIEN PO SCH (21:36)
[2016-12-15] MEDS: DUONEB (A & A) INH SCH ×7 (00:38→23:56)
[2016-12-15] MEDS: DUONEB (A & A) INH PRN ×2 (01:18→18:07)
[2016-12-15] MEDS: ROCEPHIN 1 GM in NS 50 ML IV SCH (01:52)
[2016-12-15] MEDS: SOLU-MEDROL IV SCH ×3 (05:49→22:53)
[2016-12-15 05:52] LABS: HEMATOCRIT 37.7 % (37.0-47.0); HEMOGLOBIN 11.7 g/dL (12.0-16.0); MCH 24.6 PG (27-31); MCV 79.4 FL (81-99); MPV 10.3 FL (7.4-10.4); RBC 4.75 XMIL (4.2-5.4)
[2016-12-15 06:30] LABS: AGAP 12; ALBUMIN 3.7 g/dL (3.5-5.0); ALKALINE PHOSPHATASE 74 U/L (32-104); BUN 21 mg/dL (8-22); CALCIUM 9.4 mg/dL (8.8-10.2); CHLORIDE 105 mmol/L (98-107); COSMO 281; GOT 10 U/L (10-30); GPT 11 U/L (10-36); POTASSIUM 4.5 mmol/L (3.5-5.1); SODIUM 139 mmol/L (136-145); TCO2 23 mmol/L (25-35); TOTAL BILIRUBIN < 0.15 mg/dL (0.20-1.00); TOTAL PROTEIN 6.7 g/dL (6.3-8.3)
[2016-12-15] MEDS: BREO ELLIPTA 200/25 MCG INH INH SCH (07:37)
[2016-12-15] MEDS: ADVAIR 500/50 DISKUS INH SCH ×2 (07:37→19:20)
[2016-12-15] MEDS: ALLEGRA-D 12 HOUR PO SCH (10:25)
[2016-12-15] MEDS: FLONASE NAS SCH (13:42)
[2016-12-15] MEDS: TYLENOL PO PRN (17:19)
[2016-12-15] MEDS: AMBIEN PO SCH (20:51)
[2016-12-15] MEDS: BUSPAR PO SCH (20:51)
[2016-12-15] MEDS ORDERED: ROCEPHIN 1 GM in NS 50 ML IV SCH (21:00)
[2016-12-16] MEDS: DUONEB (A & A) INH SCH ×5 (03:51→15:47)
[2016-12-16] MEDS: SOLU-MEDROL IV SCH (05:34)
[2016-12-16 06:57] LABS: IRON SATURATION 13 %; TIBC 352 ug/dL; TOTAL IRON 46 ug/dL (49-151); UNBOUND IRON 306 ug/dL (112-346)
[2016-12-16] MEDS: ADVAIR 500/50 DISKUS INH SCH (08:00)
[2016-12-16] MEDS: BREO ELLIPTA 200/25 MCG INH INH SCH (08:00)
[2016-12-16] MEDS: DUONEB (A & A) INH PRN (10:09)
[2016-12-16] MEDS: ALLEGRA-D 12 HOUR PO SCH (11:25)
[2016-12-16 11:57] VITALS: BP 167/98
[2016-12-16] MEDS ORDERED: DOXYCYCLINE PO SCH (21:00)
[2016-12-17] MEDS ORDERED: PREDNISONE PO SCH (09:00)
== END 2016-12-16 16:50 | disposition home or self-care (01) ==
LOC: P.ED 00:40 → P.MEDSURG 03:28 → SUATTDRO 03:28
PROVIDERS: ATTEND Internal Medicine

== ENCOUNTER 2018-03-09 03:01 | Inpatient (IN) ==
[~2018-03-09 03:01] MED LIST: DUONEB (A & A) INH ONE; DUONEB (A & A) ONE; SOLU-MEDROL IV ONE
--- NOTE | 2018-03-09 03:06 | PROVIDER DOCUMENTATION ---
HPI-Respiratory General - General Chief Complaint: Asthma Attack Stated Complaint: SOB Time Seen by Provider: 03/09/18 03:55 Source: patient, EMS Allergies/Adverse Reactions: Patient Allergies Allergy/AdvReac Type Severity Reaction Status Date / Time Sulfa (Sulfonamide Allergy Severe ANAPHYLAXIS Verified 02/11/18 03:57 Antibiotics) egg Allergy ANAPHYLAXIS Verified 02/11/18 03:57 nut - unspecified Allergy ANAPHYLAXIS Verified 02/11/18 03:57 milk AdvReac Unknown Verified 02/11/18 03:57 tree nut AdvReac Unknown Verified 02/11/18 03:57 Home Medications: Home Medication List Medication Instructions Recorded Confirmed Last Taken Type Zolpidem [Ambien] 5 mg PO HS #30 tablet 11/17/15 02/11/18 02/09/18 21:00 Rx Fluticasone 50 Mcg Nasal [place] 1 spray MALA BID #1 bottle 05/09/16 02/11/1802/10 10:00 Rx [Flonase] Omeprazole [Prilosec] 40 mg PO DAILY@0700 #20 cap 11/10/17 02/11/18 02/10/18 10: 00 Rx Acetaminophen [Tylenol] 650 mg PO Q6H PRN PRN 02/11/18 02/11/18 02/08/18 07:00 History Albuterol 2.5MG/Ipratrop 0.5MG 3 ml INH RTQ6H PRN #180 neb 02/15/18 Unknown Rx [Duoneb (A & A)] Albuterol Sulfate [Proair Hfa] 2 puff IH Q4H PRN PRN #1 hfa.aer.ad 02/15/18 Unknown Rx Azithromycin [Zithromax Z-Hermilo] 250 mg PO DIRECTED #1 pkg 02/15/18 Unknown Rx Benzonatate [Tessalon] 100 mg PO TID PRN PRN #60 cap 02/15/18 Unknown Rx CefDINIR [Omnicef] 300 mg PO BID #10 cap 02/15/18 Unknown Rx Fluticasone/[place] 500/50 INH 1 puff INH RTDAILY #1 inhaler 02/15/18 Unknown Rx [Advair 500/50 Diskus] Prednisone 20 mg PO BID #30 tab 02/17/18 Unknown Rx - History of Present Illness-Resp Nature of Presenting Problem: Patient is a 43 year old white female with history of asthma, take home albuterol nebs, who developed sob,dry cough and wheezing at 0200 tonight after awakening from sleep. No relief with home albuterol neb. Patient arrives by EMS after receiving 1 albuterol neb. Denies fever or productive cough. Patient is around secondary smoke at home. Review of Systems - Adult - REVIEW OF SYSTEMS - ADULT Constitutional: reports: chills Eyes: reports: no symptoms reported Ears, Nose, Mouth & Throat: reports: no symptoms reported Cardiovascular: denies: chest pain Respiratory: reports: cough, shortness of breath, wheezing Gastrointestinal: denies: abdominal pain, diarrhea, vomiting Genitourinary: reports: no symptoms reported Musculoskeletal: reports: no symptoms reported Integumentary: reports: no symptoms reported Neurological: reports: no symptoms reported Psychiatric: reports: no symptoms reported Endocrine: reports: no symptoms reported Hematologic/Lymphatic: reports: no symptoms reported Allergic/Immunologic: reports: no symptoms reported All Other Systems: Reviewed and Negative Past History - Adult - PAST MEDICAL HISTORY-ADULT Review of Records: reports: Old Records Reviewed, Nursing Assessment Review, Medications Reviewed, Social history reviewed & non-contributory. Major Childhood Illnesses: reports: denies history Cardiovascular: reports: HTN Respiratory: reports: asthma Gastrointestinal: reports: denies history Obstetrical/Gynecological: reports: denies history Genitourinary: reports: denies history Musculoskeletal: reports: denies history Neurological: reports: denies history Psychiatric: reports: anxiety, depression Endocrine/Immune: reports: denies history Other Conditions: reports: denies history - PRIOR SURGERIES/PROCEDURES Surgical/Procedure History: reports: , orthopedic (extremity) (R elbow Sx), breast (reduction) - PRIOR HOSPITALIZATIONS Prior Hospitalizations: reports: none - IMMUNIZATION STATUS Childhood Immunizations: See Nurse Assessment Flu Vaccine: See Nurse Assessment - FAMILY HISTORY Family History: reviewed, not pertinent Physical Exam-General - CONSTITUTIONAL General Appearance: alert, moderate distress - EYES Eyes: other (clear) - HEAD, EARS, NOSE, MOUTH & THROAT HENMT: normocephalic/atraumatic, moist mucous membranes - NECK Neck: non-tender, full range of motion, supple - RESPIRATORY Respiratory: no respiratory distress, no accessory muscle use, decreased breath sounds, wheezing (bialteral lung rosenbaum) - CARDIOVASCULAR Cardiovascular: regular rate, rhythm - GASTROINTESTINAL (ABDOMEN) Abdominal Exam: normal bowel sounds, non tender, soft - MUSCULOSKELETAL Back Exam: normal inspection, no CVA tenderness Extremity: normal range of motion, non-tender Peripheral Pulses: radial (R): 2+, radial (L): 2+ - SKIN Integumentary: normal color, normal turgor - NEUROLOGIC Neurologic: grossly normal - PSYCHIATRIC Psych/Mental Status: anxious Progress - PLAN OF CARE/RESULTS Progress/Plan/Lab Results: Vital Signs - 8 hr 03/09/18 03:01 03/09/18 03:13 03/09/18 06:07 Temperature 97.7 F Pulse Rate 122 H 116 H 97 H Respiratory Rate 26 H 24 19 Blood Pressure 123/76 O2 Sat by Pulse Oximetry 82 L 92 L 95 Laboratory Results - last 24 hr 03/09/18 03/09/18 03/09/18 02:48 03:08 03:08 WBC 8.67 RBC 4.84 Hgb 12.8 Hct 39.2 MCV 81.0 MCH 26.4 L MCHC 32.7 L RDW Std Deviation 15.9 H Plt Count 324 MPV 10.2 Immature Gran % (Auto) 0.2 Neut % (Auto) 64.0 Lymph % (Auto) 17.8 L [place] % (Auto) 8.1 Eos % (Auto) 9.3 Baso % (Auto) 0.6 Immature Gran # (Auto) 0.02 Neut # (Auto) 5.55 Lymph # (Auto) 1.54 [place] # (Auto) 0.70 H Eos # (Auto) 0.81 H Baso # (Auto) 0.05 Specimen Type ARTERIAL Sample Site R RADIAL pH 7.37 pCO2 38 pO2 64 HCO3 22.5 Base Excess -2.9 Oxyhemoglobin 91.5 L ABG O2 Sat (Calculated) 16.5 ABG O2 Saturation 93.8 L ABG Carboxyhemoglobin 1.80 ABG Methemoglobin 0.7 Santos Test YES A-a O2 Difference 145.0 Total Hemoglobin 12.8 Lactate 0.60 Liter Flow 4.0 Blood Gas Modality CANNULA FiO2 % 36.0 Creatine Kinase Troponin T < 0.010 Sko-P-Mldyfrdiplh Pept 03/09/18 03/09/18 03:08 03:08 WBC RBC Hgb Hct MCV MCH MCHC RDW Std Deviation Plt Count MPV Immature Gran % (Auto) Neut % (Auto) Lymph % (Auto) [place] % (Auto) Eos % (Auto) Baso % (Auto) Immature Gran # (Auto) Neut # (Auto) Lymph # (Auto) [place] # (Auto) Eos # (Auto) Baso # (Auto) Specimen Type Sample Site pH pCO2 pO2 HCO3 Base Excess Oxyhemoglobin ABG O2 Sat (Calculated) ABG O2 Saturation ABG Carboxyhemoglobin ABG Methemoglobin Santos Test A-a O2 Difference Total Hemoglobin Lactate Liter Flow Blood Gas Modality FiO2 % Creatine Kinase 76 Troponin T Rqx-Y-Laohpgmhhsl Pept 45 Orders Category Date Time Status Cardiac Monitoring DIRECTED Care 03/09/18 03:02 Active CHEST-PORTABLE [RAD] Stat Exams 03/09/18 03:01 Taken ABG [RESP] Routine Lab 03/09/18 02:48 Completed BLOOD CULTURE [BLDCUL] Stat Lab 03/09/18 03:11 Ordered BMP [BASIC METABOLIC PANEL] [CHEM] Stat Lab 03/09/18 06:11 Ordered BNP [PRO B-NATRIURETIC PEPTIDE] Stat Lab 03/09/18 03:08 Completed CBC WITH ELECTRONIC DIFF [HEME] Stat Lab 03/09/18 03:08 Completed CK PROFILE [SP CHEM] Stat Lab 03/09/18 03:08 Completed TROPONIN T Stat Lab 03/09/18 03:08 Completed Albuterol 2.5MG/Ipratrop 0.5MG [Duoneb (A & A)] Med 03/09/18 03:00 Discontinued 3 ml .ROUTE .STK-MED ONE Albuterol 2.5MG/Ipratrop 0.5MG [Duoneb (A & A)] Med 03/09/18 03:00 Discontinued 3 ml INH NOW ONE Albuterol [Albuterol Neb] Med 03/09/18 04:54 Discontinued 5 mg INH NOW ONE Benzonatate [Tessalon] Med 03/09/18 03:58 Discontinued 100 mg PO NOW ONE Magnesium Sulfate 1 gm/D5w Med 03/09/18 04:26 Discontinued 1 gm in 100 ml IV NOW Methylprednisolone Sod Succ [Solu-Medrol] Med 03/09/18 03:01 Discontinued 125 mg IV NOW ONE Rocephin 1 gm/Ns IV Now Med 03/09/18 06:15 Ordered CefTRIAXONE [Rocephin] 1 gm 0.9% Sodium Chloride Inj [Ns] 50 ml IV NOW Aerosol Treatments Routine Oth 03/09/18 03:00 Completed Aerosol Treatments Routine Oth 03/09/18 04:55 Completed Aerosol Treatments Stat Oth 03/09/18 03:00 Completed Aerosol Treatments Stat Oth 03/09/18 04:55 Completed EKG [EKG] Stat Ther 03/09/18 03:03 Ordered patient continues to wheeze despite multiple nebulizer treatments and IV Solumedrol Result Diagrams: 03/09/18 03:08 - XRAY 1 XRAY Study: Chest XRAY Interpretation: NAD - CONSULTS/PCP/HOSPITALIST Notification #1 *Consult/PCP/Hospitalist*: Dr. Dhaliwal, hospitalist Time Discussed: 06:15 Consult Disposition: Admit Departure - Departure Date of Disposition Decision: 03/09/18 Time of Disposition Decision: 06:17 DIAGNOSIS: Bronchitis Asthma exacerbation Qualifiers: Asthma severity: mild Asthma persistence: intermittent Qualified Code(s): J45.21 - Mild intermittent asthma with (acute) exacerbation Disposition: ADMITTED INPATIENT 09 Certified Medical Emergency: Emergent Condition: Stable Referrals and Follow-Ups: None,PCP [Primary Care Provider] - - Critical Care Note This patient required my direct & personal management of CC.: No Attestation - Physician/ NIGEL Attestation Patient care was provided by Advanced Practice Provider:: No The physician spent face to face time with patient:: Yes Advanced Practice Provider documentation review:: Supervising physician onsite and consulted in the evaluation and care of this patient. The physician did have a face to face encounter with the patient.
[2018-03-09 03:13] LABS: BE -2.9 mmoll (-3.0-3.0); BLOOD TYPE ARTERIAL; HCO3-(ACT) 22.5 mmoll (20.0-26.0); METHB 0.7 % (0.0-1.5); O2(CT) 16.5 mL/dL (15.0-23.0); O2HB 91.5 % (95.0-99.0); PCO2(98.6) 38 mmHg (35-45); PO2(98.6) 64 mmHg (60-100); SAMPLE BLOOD; SAO2 93.8 % (95.0-100.0); THB 12.8 g/dL (11.5-17.4); pH(98.6) 7.37 (7.35-7.45)
[2018-03-09 03:15] LABS: MODALITY CANNULA
[2018-03-09 03:16] LABS: ALLEN TEST YES
[2018-03-09 03:26] LABS: HEMOGLOBIN 12.8 g/dL (12.0-16.0); IMM GRAN# 0.02 X1000 (0.0-0.04); IMM GRAN% 0.2 % (0.0-0.5); MCH 26.4 PG (27-31); MCHC 32.7 g/dL (33-37); MONO% 8.1 % (1.7-9.3); RBC 4.84 XMIL (4.2-5.4); RDW 15.9 % (11.5-14.5)
[2018-03-09 03:33] LABS: BASO# 0.05 X1000 (0.0-0.2); BASO% 0.6 % (0.0-0.8); EOS# 0.81 X1000 (0.0-0.7); EOS% 9.3 % (0.0-10.0); HEMATOCRIT 39.2 % (37.0-47.0); LYMPH# 1.54 X1000 (1.2-3.4); LYMPH% 17.8 % (20.5-51.1); MPV 10.2 FL (7.4-10.4); NEUT# 5.55 X1000 (1.4-6.5); PLT 324 X1000 (130-400); WBC 8.67 X1000 (4.8-10.8)
[2018-03-09] MEDS ORDERED: TESSALON PO ONE (03:58)
[2018-03-09] MEDS ORDERED: MAGNESIUM SULFATE 1 GM/D5W 1 GM/100 ML IVPB IV ONE (04:26)
[2018-03-09] MEDS ORDERED: ALBUTEROL NEB INH ONE (04:54)
--- NOTE | 2018-03-09 05:26 | EKG Report ---
Test Performed on : 03/09/2018 04:28:31 AM Test Reason : pain Blood Pressure : / mmHG Vent. Rate : 099 BPM Atrial Rate : 099 BPM P-R Int : 136 ms QRS Dur : 086 ms QT Int : 366 ms P-R-T Axes : 055 058 048 degrees QTc Int : 469 ms Normal sinus rhythm. Possible Anterior infarct (cited on or before 25-JUL-2015) Abnormal ECG When compared with ECG of 11-SEP-2017 10:38, No significant change was found Unconfirmed Result
[2018-03-09] MEDS ORDERED: ROCEPHIN 1 GM in NS 50 ML IV ONE (06:15)
[2018-03-09] MEDS: DUONEB (A & A) INH SCH ×6 (06:30→23:14)
[2018-03-09 06:42] LABS: AGAP 13; BUN 10 mg/dL (8-22); CALCIUM 8.7 mg/dL (8.8-10.2); CHLORIDE 106 mmol/L (98-107); COSMO 275; CREATININE 0.6 mg/dL (0.5-0.9); ESTIMATED GFR > 60; GLUCOSE 99 mg/dL (70-104); POTASSIUM 3.8 mmol/L (3.5-5.1); SODIUM 138 mmol/L (136-145); TCO2 20 mmol/L (25-35)
--- NOTE | 2018-03-09 06:56 | Diag Imaging Result Doc PS360 ---
EXAM: CHEST-PORTABLE 03/09/2018 HISTORY: sob,wheezing TECHNIQUE: Erect AP portable at 0319 COMMENT: There is no evidence of acute cardiac or pulmonary disease. Compared to 02/11/2018 there has been no appreciable change. IMPRESSION: Stable chest. Electronically signed by Hussain Mancia 03/09/2018 6:54 AM
[2018-03-09] MEDS ORDERED: SOLU-MEDROL IV SCH (09:00)
[2018-03-09] MEDS ORDERED: VENTOLIN HFA INH PRN (10:17)
[2018-03-09] MEDS: SOLU-MEDROL IV SCH ×2 (11:02→17:45)
[2018-03-09] MEDS: FLONASE NAS SCH ×2 (11:03→20:38)
[2018-03-09] MEDS: ADVAIR 500/50 DISKUS INH SCH (11:25)
[2018-03-09] MEDS: KLONOPIN PO PRN (13:03)
--- NOTE | 2018-03-09 13:40 | HISTORY AND PHYSICAL ---
PRIMARY CARE PHYSICIAN: Dr. Townsend. CHIEF COMPLAINT: Shortness of breath, dry cough and wheezing. HISTORY OF PRESENTING ILLNESS: This is a 43-year-old female, who presents to [facility] ER with complaints of shortness of breath, a dry, nonproductive cough and wheezing that woke her up from her sleep. She states that she has been taking nebulizer treatments without relief. She does not smoke but is around secondary smoke at home. Her workup showed an O2 saturation on room air of 82% on arrival. She had a heart rate of 122, with respirations of 26, audible wheezing. Chest x-ray was stable so she is being admitted for an acute asthma exacerbation for further evaluation and treatment. PAST MEDICAL HISTORY: Asthma, hypertension, anxiety, and depression. PAST SURGICAL HISTORY: , right elbow surgery, and a breast reduction. FAMILY HISTORY: Reviewed and noncontributory. SOCIAL HISTORY: She currently lives with family. Denies any tobacco use. States that her mom is a smoker in the home and that she is exposed to secondary smoke. Denies any alcohol or illicit drug use. ALLERGIES: Sulfa. Egg. Nut. Mild. Tree nuts. HOME MEDICATIONS: We will hold her Tylenol 650 mg p.o. q.6 hours p.r.n. and DuoNeb q.6 hours p.r.n. We will continue her ProAir 2 puff inhalation q.4 hours p.r.n., Flonase 1 spray nasally b.i.d. Advair 500/50 Diskus 1 puff inhalation daily, Prilosec 40 mg p.o. daily, and Ambien 5 mg p.o. at bedtime. DIAGNOSTIC DATA: White blood cell count 8.67, hemoglobin 12.8, hematocrit 39.2, platelets 324,000. ABG with a pH of 7.37, pCO2 of 38, pO2 of 64, bicarb 22.5. Sodium 138, potassium 3.8, chloride 106 CO2 20, BUN of 10, creatinine 0.6, glucose of 99, creatine kinase of 76. Troponin less than 0.010. ProBNP of 45. Chest x-ray shows a stable chest. EKG showed normal sinus rhythm at 99. REVIEW OF SYSTEMS: She denied any fever, chills, blurred vision, dizziness, or chest pain. She had a nonproductive cough, shortness of breath and wheezing. Denies any abdominal pain, constipation, diarrhea, burning or hurting with urination. PHYSICAL EXAMINATION: VITALS: On arrival, she had a temperature of 97.7 degrees, pulse 122, respirations 26, blood pressure 123/76, saturating 82% on room air. Currently, she is saturating 94% on 3.5 L. GENERAL: This is a 43-year-old female who is sitting up in the bed and answers questions appropriately. HEENT: Normocephalic, atraumatic. Normal ENT inspection. Oropharynx and nares are clear. Eyes, pupils are equal, round, reactive to light and accommodation. Extraocular movements are intact. NECK: Normal inspection. Normal range of motion. LUNGS: With wheezing throughout entire posterior lung rosenbaum. Decreased in the bases bilaterally. O2 via nasal cannula currently in use. HEART: Regular rate and rhythm. No murmurs, rubs, or gallops. ABDOMEN: Soft, nontender, nondistended. Bowel sounds are present x4 quadrants. MUSCULOSKELETAL: She has 5/5 strength x4 extremities. NEUROLOGICAL: Cranial nerves 2-12 appear grossly intact. ASSESSMENT: 1. An acute asthma exacerbation. 2. Acute respiratory failure. 3. Hypertension. PLAN: She has been admitted to the medical unit at [facility], placed on incentive spirometry. Peak flows, O2 per protocol. Healthy heart diet. Blood cultures x2 are pending. She is on DuoNeb q.4 hours, Solu-Medrol 80 mg IV q.8 and will wean as she improves. We are going to place her on Rocephin 1 gram IV q.24h. just to rule out if she has any type of bronchitis. She does not have a white count at this time. We will recheck a CBC and BMP in the a.m. We are also going to give her benzonatate 200 mg p.o. t.i.d. p.r.n. Continue home medications as previously identified. Further orders after being seen by attending. Dictated by JORDY Gale for Ole Dietrich MD cc: JORDY Gale MD Hiteshri S. Bhavsar, MD
[2018-03-09] MEDS ORDERED: DESYREL PO PRN (18:02)
[2018-03-09] MEDS: TESSALON PO PRN (20:37)
--- NOTE | 2018-03-09 20:57 | HISTORY AND PHYSICAL ---
The patient came in with shortness of breath. She is a 43-year-old female with history of COPD who presents with shortness of breath and cough. She was found to have COPD exacerbation with no pneumonia. She has been placed on breathing treatments, antibiotics and steroids and has clinically improved. This evening she has a little bit of wheezing but I think she is overall improved. I am going to back down on those a little bit. Continue empiric antibiotics, breathing treatments. Hopefully discharge in next 1 to 2 days. She is also complaining of anxiety so adjust her medicines from that standpoint. DISPOSITION: Pending her clinical status. This is a rade-sa-addo encounter note with Brianne Escalante. cc: Ole Dietrich MD
[2018-03-09] MEDS ORDERED: AMBIEN PO SCH (21:00)
[2018-03-09] MEDS: KLONOPIN PO SCH (21:18)
[2018-03-10] MEDS: SOLU-MEDROL IV SCH ×4 (01:01→23:53)
[2018-03-10] MEDS: DUONEB (A & A) INH PRN ×2 (01:04→17:53)
[2018-03-10] MEDS: KLONOPIN PO PRN (03:26)
[2018-03-10] MEDS: TESSALON PO PRN (03:27)
[2018-03-10] MEDS: DUONEB (A & A) INH SCH ×6 (03:30→23:25)
[2018-03-10 07:02] LABS: BASO# 0.01 X1000 (0.0-0.2); BASO% 0.1 % (0.0-0.8); EOS# 0.01 X1000 (0.0-0.7); EOS% 0.1 % (0.0-10.0); HEMATOCRIT 37.6 % (37.0-47.0); HEMOGLOBIN 12.1 g/dL (12.0-16.0); IMM GRAN# 0.02 X1000 (0.0-0.04); IMM GRAN% 0.2 % (0.0-0.5); LYMPH# 0.62 X1000 (1.2-3.4); LYMPH% 5.5 % (20.5-51.1); MCH 26.1 PG (27-31); MCHC 32.2 g/dL (33-37); MCV 81.2 FL (81-99); MONO# 0.22 X1000 (0.11-0.59); MPV 10.4 FL (7.4-10.4); NEUT# 10.35 X1000 (1.4-6.5); NEUT% 92.1 % (42.2-75.2); PLT 327 X1000 (130-400); RBC 4.63 XMIL (4.2-5.4); WBC 11.23 X1000 (4.8-10.8)
[2018-03-10 07:23] LABS: AGAP 11; BUN 13 mg/dL (8-22); CALCIUM 9.2 mg/dL (8.8-10.2); CHLORIDE 108 mmol/L (98-107); COSMO 283; CREATININE 0.6 mg/dL (0.5-0.9); ESTIMATED GFR > 60; GLUCOSE 156 mg/dL (70-104); POTASSIUM 4.9 mmol/L (3.5-5.1); SODIUM 140 mmol/L (136-145); TCO2 21 mmol/L (25-35)
[2018-03-10 07:34] LABS: BANDS 1 % (0-1); LYMPHS 4 % (21-51); SEGS 94 % (42-75)
[2018-03-10 07:35] LABS: ANISOCYTOSIS OCCASIONAL; MICROCYTOSIS OCCASIONAL; POIKILOCYTOSIS OCCASIONAL; POLYCHROM OCCASIONAL
[2018-03-10 07:36] LABS: OVALOCYTES OCCASIONAL
[2018-03-10] MEDS: ADVAIR 500/50 DISKUS INH SCH ×2 (07:53→19:49)
[2018-03-10] MEDS: PRILOSEC PO SCH (08:10)
[2018-03-10] MEDS: LOVENOX SUBQ SCH (08:10)
[2018-03-10] MEDS: KLONOPIN PO SCH ×3 (08:11→21:49)
[2018-03-10] MEDS: FLONASE NAS SCH (08:12)
[2018-03-10] MEDS ORDERED: KLONOPIN PO SCH (09:00)
[2018-03-10] MEDS: ROCEPHIN 1 GM in NS 50 ML IV SCH (10:04)
[2018-03-10] MEDS: ROBITUSSIN-AC PO PRN ×2 (16:44→21:49)
--- NOTE | 2018-03-10 17:09 | PROGRESS NOTE ---
DATE: 03/10/2018 She seems to be doing well she is complaining of cough and shortness of breath. OBJECTIVE: Blood pressure 148/97, heart rate 114, respiratory 18, temperature 98.1 degrees 95% on 4 L.Cardiovascular: Regular rate and rhythm. Pulmonary: Bilateral breath sounds clear to auscultation. GI: Soft, nontender, nondistended, bowel sounds are positive. White count 11, hemoglobin and hematocrit 12 and 37, platelets 327,000, basic was normal. PROBLEM LIST: 1. Asthma, chronic obstructive pulmonary disease exacerbation, we will continue breathing treatments, I weaned her steroids. She is on Rocephin, she is on continuous breathing treatments. She was requesting some cough medication. 2. Respiratory failure with hypoxia, we were working on trying to wean her O2. 3. Anxiety. We have had to use some p.r.n. Klonopin, continue to follow . 4. Disposition. I anticipate here for another day or 2. Her pulmonary exam is improved but she still has some wheezing. cc: Ole Dietrich MD
[2018-03-10] MEDS ORDERED: ADVAIR 500/50 DISKUS INH SCH (19:30)
[2018-03-11] MEDS: DUONEB (A & A) INH SCH ×6 (03:32→22:59)
[2018-03-11] MEDS: ROBITUSSIN-AC PO PRN ×4 (04:21→21:43)
[2018-03-11] MEDS: PRILOSEC PO SCH (06:01)
[2018-03-11] MEDS: LOVENOX SUBQ SCH (06:02)
[2018-03-11 06:50] LABS: AGAP 11; BUN 17 mg/dL (8-22); CALCIUM 9.2 mg/dL (8.8-10.2); CHLORIDE 103 mmol/L (98-107); COSMO 276; CREATININE 0.7 mg/dL (0.5-0.9); ESTIMATED GFR > 60; GLUCOSE 147 mg/dL (70-104); POTASSIUM 4.2 mmol/L (3.5-5.1); SODIUM 136 mmol/L (136-145); TCO2 22 mmol/L (25-35)
[2018-03-11 07:05] LABS: HEMOGLOBIN 11.9 g/dL (12.0-16.0); IMM GRAN# 0.06 X1000 (0.0-0.04); IMM GRAN% 0.4 % (0.0-0.5); LYMPH# 0.67 X1000 (1.2-3.4); LYMPH% 4.4 % (20.5-51.1); MCH 25.8 PG (27-31); MCHC 31.3 g/dL (33-37); MCV 82.3 FL (81-99); MONO# 0.61 X1000 (0.11-0.59); MPV 10.6 FL (7.4-10.4); NEUT# 13.76 X1000 (1.4-6.5); NEUT% 91.2 % (42.2-75.2); PLT 381 X1000 (130-400); RBC 4.62 XMIL (4.2-5.4); RDW 16.2 % (11.5-14.5)
[2018-03-11] MEDS: ADVAIR 500/50 DISKUS INH SCH ×2 (07:49→19:07)
[2018-03-11] MEDS: KLONOPIN PO SCH ×3 (08:30→21:43)
[2018-03-11] MEDS: ROCEPHIN 1 GM in NS 50 ML IV SCH (08:30)
[2018-03-11] MEDS: SOLU-MEDROL IV SCH ×2 (08:31→19:00)
[2018-03-11 08:53] LABS: LYMPHS 5 % (21-51); MONO 4 % (1-9); SEGS 91 % (42-75)
[2018-03-11] MEDS: DUONEB (A & A) INH PRN ×2 (17:02→21:30)
[2018-03-12] MEDS: SOLU-MEDROL IV SCH ×2 (00:43→11:07)
--- NOTE | 2018-03-12 01:36 | PROGRESS NOTE ---
DATE: 03/11/2018 SUBJECTIVE: The patient notes that she is still wheezing while still having shortness of breath and still coughing. OBJECTIVE: Vital Signs: Reviewed. Temperature 97.7 degrees, pulse 111, respiratory 22, BP 161/89, sat 97% on 4 L. The patient does not have oxygen at home. General: The patient is in mild respiratory distress. HEENT: Normocephalic and atraumatic. Neck: Supple. CARDIOVASCULAR: Regular rate. Chest: Clear and nonlabored. Abdomen: Soft. Extremities: Moves all extremities. Neurologic: No focal changes. ASSESSMENT: 1. Asthma with an acute exacerbation. 2. Hypoxic respiratory failure, acute. PLAN: We will continue the patient in the hospital, decrease Solu-Medrol and we will follow. Hopefully home soon. cc: Nathan Dhaliwal MD
[2018-03-12] MEDS: DUONEB (A & A) INH SCH ×3 (03:09→10:57)
[2018-03-12] MEDS: TESSALON PO PRN (03:48)
[2018-03-12] MEDS: LOVENOX SUBQ SCH (06:05)
[2018-03-12] MEDS: PRILOSEC PO SCH (06:05)
[2018-03-12] MEDS: ROBITUSSIN-AC PO PRN ×4 (06:05→21:20)
[2018-03-12] MEDS: ADVAIR 500/50 DISKUS INH SCH ×2 (07:38→19:11)
[2018-03-12] MEDS: KLONOPIN PO SCH ×3 (08:11→21:19)
[2018-03-12] MEDS: ROCEPHIN 1 GM in NS 50 ML IV SCH (08:13)
--- NOTE | 2018-03-12 13:05 | EKG Report ---
Test Performed on : 03/12/2018 12:11:38 PM Test Reason : TACHYCARDIA Blood Pressure : / mmHG Vent. Rate : 125 BPM Atrial Rate : 125 BPM P-R Int : 144 ms QRS Dur : 084 ms QT Int : 312 ms P-R-T Axes : 060 072 049 degrees QTc Int : 450 ms Sinus tachycardia. Possible Anterior infarct (cited on or before 25-JUL-2015) Abnormal ECG When compared with ECG of 09-MAR-2018 04:28, (Unconfirmed) No significant change was found Unconfirmed Result
[2018-03-12] MEDS: ATROVENT NEB INH SCH ×3 (14:31→23:09)
[2018-03-12] MEDS: XOPENEX NEB INH SCH ×3 (14:31→23:09)
[2018-03-13] MEDS: TESSALON PO PRN ×3 (00:47→20:40)
[2018-03-13] MEDS: SOLU-MEDROL IV SCH ×3 (00:47→22:42)
[2018-03-13] MEDS: XOPENEX NEB INH SCH ×7 (00:54→23:22)
[2018-03-13] MEDS: ATROVENT NEB INH SCH ×7 (00:54→23:22)
--- NOTE | 2018-03-13 03:06 | PROGRESS NOTE ---
DATE: 03/12/2018 SUBJECTIVE: The patient states she is still short of breath, still fatigued, still has dyspnea on exertion. Still gets very exhausted walking from the A bed to the bathroom or from the side of the bed to the window. cc: Nathan Dhaliwal MD
[2018-03-13] MEDS: ROBITUSSIN-AC PO PRN ×5 (03:33→22:41)
--- NOTE | 2018-03-13 04:06 | PROGRESS NOTE ---
DATE: 03/12/2018 SUBJECTIVE: Patient notes she still gets very tired, fatigued with any movement. Still getting palpitations when she attempts to get out of bed, with shortness of breath with physical exertion. PHYSICAL EXAMINATION: Vital Signs: Temperature 97.9, pulse 91, respiratory rate 20, blood pressure 176/86. General: The patient is an obese female, currently in mild respiratory distress. Pleasant to talk with. Sitting in bed. HEENT: Normocephalic. Neck: Supple. CV: Regular rate and rhythm. No murmurs. Chest: Decreased breath sounds, but equal bilaterally. No crackles. Abdomen: Soft, obese, nondistended. Extremities: Moves all extremities. Neurologic: No changes. ASSESSMENT: 1. Asthma exacerbation. 2. Respiratory failure, acute. PLAN: Overall, the patient has continued to improve, although somewhat slowly. We will decrease her Solu-Medrol again very slowly. Will encourage to continue to get out of bed. Further orders as needed. cc: Nathan Dhaliwal MD
[2018-03-13] MEDS: PRILOSEC PO SCH (06:02)
[2018-03-13] MEDS: LOVENOX SUBQ SCH (06:02)
[2018-03-13] MEDS: ADVAIR 500/50 DISKUS INH SCH (06:42)
--- NOTE | 2018-03-13 08:08 | Diag Imaging Result Doc PS360 ---
EXAM: CHEST-2 VIEWS HISTORY: hypoxia TECHNIQUE: PA and Lateral chest x-ray COMPARISON: 03/09/2018 FINDINGS: The cardiomediastinal silhouette is within normal limits. The pulmonary vasculature is not congested. No infiltrate, effusion, or pneumothorax is appreciated. There is evidence of previous granulomatous infection. IMPRESSION: No acute cardiopulmonary abnormality is identified. Electronically signed by Keisha Glover 03/13/2018 8:05 AM
[2018-03-13] MEDS: ROCEPHIN 1 GM in NS 50 ML IV SCH (09:27)
[2018-03-13] MEDS: KLONOPIN PO SCH ×3 (09:28→20:40)
[2018-03-13 11:25] LABS: HEMOGLOBIN 12.8 g/dL (12.0-16.0); MCH 26.2 PG (27-31); MCV 81.8 FL (81-99); MPV 10.3 FL (7.4-10.4); RBC 4.89 XMIL (4.2-5.4); RDW 15.6 % (11.5-14.5); WBC 10.48 X1000 (4.8-10.8)
[2018-03-13 11:42] LABS: AGAP 12; ALBUMIN 3.6 g/dL (3.5-5.0); ALKALINE PHOSPHATASE 66 U/L (32-104); BUN 12 mg/dL (8-22); CALCIUM 9.2 mg/dL (8.8-10.2); CHLORIDE 103 mmol/L (98-107); COSMO 282; CREATININE 0.6 mg/dL (0.5-0.9); ESTIMATED GFR > 60; GLUCOSE 119 mg/dL (70-104); GOT 10 U/L (10-30); GPT 10 U/L (10-36); SODIUM 141 mmol/L (136-145); TCO2 27 mmol/L (25-35); TOTAL BILIRUBIN < 0.15 mg/dL (0.20-1.00); TOTAL PROTEIN 6.7 g/dL (6.3-8.3)
[2018-03-13] MEDS: BREO ELLIPTA 200/25 MCG INH INH SCH (12:09)
[2018-03-13] MEDS: DUONEB (A & A) INH PRN ×2 (12:09→16:22)
--- NOTE | 2018-03-13 18:41 | PROGRESS NOTE ---
DATE: 03/13/2018 SUBJECTIVE: Patient notes that she is still having lots of trouble breathing, lots of shortness of breath. She gets winded and feels as though her heart starts racing when she attempts to get up and move about the room. Denies any current chest pain. States that the heart racing disappears after she lies back down. PHYSICAL EXAMINATION: Vital Signs: Temperature 97.3, pulse 87, respiratory 22, BP 118/ [*]96% on 4 L. General: Patient is awake, alert. She is in moderate respiratory distress. She is very pleasant to talk with, but does get winded easily. HEENT: Normocephalic. Neck: Supple. Cardiovascular: Regular rate. No current murmurs. Chest: Decreased breath sounds. Positive wheezing, no crackles, equal bilaterally. Moderate distress. Abdomen: Soft, obese, nondistended. Extremities: No edema. Neurologic: No focal changes. She is awake, alert, oriented. ASSESSMENT: 1. Acute asthmatic exacerbation. 2. Acute hypoxic respiratory failure. Patient is not on oxygen at home. Certainly, expect that she may require oxygen on discharge. 3. Anxiety. 4. Palpitations. PLAN: We will continue to follow. Continue oxygen, continue breathing treatments. We will change Advair to Breo and follow. cc: Nathan Dhaliwal MD
--- NOTE | 2018-03-13 20:09 | ECHO REPORT ---
ORDER DATE: 03/13/2018 INDICATION: A 43-year-old female with COPD and pneumonia. M-MODE MEASUREMENTS: Left ventricle end diastole: Not well visualized. The heart measurements cannot be obtained in this study. Left atrium: 3.8. Aortic root: 2.7. SUMMARY OF 2-DIMENSIONAL IMAGIN. The study is clinically very limited. Definity was added to visualize the endocardium. The global ejection fraction is probably normal, visually estimated at 65% to 70%. 2. The right ventricle is probably normal. The atria appear to be grossly normal. 3. The mitral valve is suboptimally visualized as well as the aortic valve. They appear to be grossly within normal range. 4. Pulsed wave Doppler of mitral inflow is normal. 5. Tissue Doppler of septal and lateral mitral annulus averages 9 cm. 6. The pulmonic valve is not well visualized. 7. The tricuspid valve is also suboptimal. SUMMARY: This study is really very limited. The global left ventricular systolic function appears to be normal. The valvular structures also appear to be grossly within normal range. No pericardial effusion, masses, or thrombus noted. Clinical correlation recommended. If there is a strong index of suspicion that this patient may have valvular disease, then a transesophageal echocardiogram would be indicated. The primary service may want to get a resting gated myocardial perfusion study to reassess the ejection fraction; however, in this study it appears to be excellent, greater than 65% to 70%. cc: MD Nathan Ma MD
[2018-03-14] MEDS: ATROVENT NEB INH SCH ×2 (03:56→07:47)
[2018-03-14] MEDS: XOPENEX NEB INH SCH ×2 (03:56→07:47)
[2018-03-14] MEDS: ROBITUSSIN-AC PO PRN ×2 (04:27→08:57)
[2018-03-14] MEDS: PRILOSEC PO SCH (06:08)
[2018-03-14] MEDS: LOVENOX SUBQ SCH (06:08)
[2018-03-14] MEDS: BREO ELLIPTA 200/25 MCG INH INH SCH (07:47)
[2018-03-14 08:35] VITALS: BP 151/76
[2018-03-14] MEDS: ROCEPHIN 1 GM in NS 50 ML IV SCH (08:57)
[2018-03-14] MEDS: KLONOPIN PO SCH (08:57)
[2018-03-14] MEDS: SOLU-MEDROL IV SCH (11:33)
--- NOTE | 2018-03-15 03:40 | PROGRESS NOTE ---
DATE: 03/14/2018 SUBJECTIVE: Patient notes she is starting to feel better. She is sitting up on the side of the bed [*]oxygen. PHYSICAL EXAMINATION: Vital Signs: Temperature 98 degrees, pulse 94, respiratory [*], BP 120/56. General: Patient is awake, alert, very pleasant to talk with. HEENT: Normocephalic. Neck: Supple. Cardiovascular: Regular rate. Chest: Clear. Positive rhonchi. No crackles. No wheezing. Abdomen: Soft, nondistended, nontender. ASSESSMENT: 1. Chronic obstructive pulmonary disease with exacerbation. 2. Hypoxic respiratory failure. 3. Anxiety. PLAN: We will continue patient in the hospital today. Hopefully, she will continue to improve and may be discharged home later this afternoon versus tomorrow. cc: Nathan Dhaliwal MD
== END 2018-03-14 12:02 | disposition home or self-care (01) | DRG 189 ==
LOC: P.MEDSURG 03:01 → P.ED 03:01 → SUATTDRO 07:00 → OBSVTOIN 07:00 → P.MEDSURG 03-10 02:03
PROVIDERS: ATTEND Family Medicine
CPT/HCPCS: 71010; 71020; 71045; 71046; 80048; 80053; 82550; 82805; 83880; 84484; 85025; 85027; 87040; 89220; 93005; 93306; 94640; 94761; 94799; 96365; 96366; 96367; 96375; 99285; A9270; C8929; J0696; J1650; J2920; J2930; J3475; Q9957

== ENCOUNTER 2018-05-20 15:11 | Inpatient (IN) ==
[2018-05-20] MEDS ORDERED: ALBUTEROL NEB INH ONE ×2 (15:42→18:28)
--- NOTE | 2018-05-20 16:08 | Diag Imaging Result Doc PS360 ---
EXAM: CHEST-1 VIEW HISTORY: ASTHMA TECHNIQUE: Single view COMPARISON: 05/03/2018 FINDINGS: The lungs are well expanded. The heart is not enlarged. The vessels are not distended. There are no infiltrates. No effusion identified. IMPRESSION: Negative exam. Electronically signed by Tariq العراقي 05/20/2018 4:06 PM
[2018-05-20] MEDS ORDERED: DUONEB (A & A) INH ONE (16:44)
[2018-05-20] MEDS ORDERED: PREDNISONE PO ONE (16:44)
[2018-05-20] MEDS ORDERED: MAGNESIUM SULFATE 1 GM/D5W 1 GM/100 ML IVPB IV ONE (19:30)
--- NOTE | 2018-05-20 19:35 | PROVIDER DOCUMENTATION ---
This chart was entered by Nadya Rodríguez Scribe, acting as scribe for Jarvis Barr CRNP. HPI-Respiratory General - General Chief Complaint: Asthma Attack Stated Complaint: ASTHMA ATTACK Time Seen by Provider: 05/20/18 16:14 Source: patient Allergies/Adverse Reactions: Patient Allergies Allergy/AdvReac Type Severity Reaction Status Date / Time Sulfa (Sulfonamide Allergy Severe ANAPHYLAXIS Verified 02/11/18 03:57 Antibiotics) egg Allergy ANAPHYLAXIS Verified 02/11/18 03:57 nut - unspecified Allergy ANAPHYLAXIS Verified 02/11/18 03:57 milk AdvReac Unknown Verified 02/11/18 03:57 tree nut AdvReac Unknown Verified 02/11/18 03:57 Home Medications: Home Medication List Medication Instructions Recorded Confirmed Last Taken Type Zolpidem [Ambien] 5 mg PO HS #30 tablet 11/17/15 03/09/18 02/09/18 21:00 Rx Fluticasone 50 Mcg Nasal Cyrus 1 spray MALA BID #1 bottle 05/09/16 03/09/18 02/10/18 10:00 Rx [Flonase] Omeprazole [Prilosec] 40 mg PO DAILY@0700 #20 cap 11/10/17 03/09/18 02/10/18 10:00 Rx Acetaminophen [Tylenol] 650 mg PO Q6H PRN PRN 02/11/18 03/09/18 02/08/18 07:00 History Albuterol 2.5MG/Ipratrop 0.5MG 3 ml INH RTQ6H PRN #180 neb 02/15/18 03/09/18 Unknown Rx [Duoneb (A & A)] Albuterol Sulfate [Proair Hfa] 2 puff IH Q4H PRN PRN #1 hfa.aer.ad 02/15/18 03/09/18 Unknown Rx Albuterol 2.5MG/Ipratrop 0.5MG 3 ml INH Q2H PRN PRN neb 03/14/18 Unknown Rx [Duoneb (A & A)] Benzonatate [Tessalon] 200 mg PO TID PRN PRN #60 cap 03/14/18 Unknown Rx Clonazepam [Klonopin] 0.5 mg PO 0900,1500,2100 #20 tab 03/14/18 Unknown Rx Fluticasone/Vilant 200/25 INH 1 puff INH RTDAILY #1 inhaler 03/14/18 Unknown Rx [Breo Ellipta 200/25 Mcg INH] Guaifenesin/Codeine [Robitussin-AC] 10 ml PO Q4H PRN #6 udc 03/14/18 Unknown Rx Azithromycin [Zithromax Z-Hermilo] 250 mg PO DIRECTED #1 pkg 04/01/18 Unknown Rx Prednisone 50 mg PO DAILY #5 tab 04/01/18 Unknown Rx Mometasone Nasal Cyrus [Nasonex 1 spray MALA DAILY #1 bottle 05/03/18 Unknown Rx Nasal Cyrus] Prednisone 20 mg PO DIRECTED #18 tab 05/03/18 Unknown Rx - History of Present Illness-Resp Nature of Presenting Problem: Pt is 43/F presenting to ED w/ Asthma, wheezing and SOB. Was given prednisone on 05/03 but it has not cleared it up as of now. She was seen by Dr. Rey in ED on 05/03 and he offered her admission, she declined at that time. Severity in ED: reports: moderate Onset/Duration: reports: just prior to arrival Timing: reports: still present Context: reports: other (asthma) Exposure: reports: other Cough Quality/Degree: reports: no cough Episode Frequency: chronic episodes Current Respiratory Medication Therapy: Initiated albuterol/atrovent inhale, Initiated A/A nebulizer Modifying Factors: improves with: albuterol inhaler, albuterol nebulizer Associated Symptoms: reports: shortness of breath, short of breath, wheezing. denies: cough, dizziness Similar Symptoms Previously?: Yes Recently seen or treated by another doctor?: Yes Review of Systems - Adult - REVIEW OF SYSTEMS - ADULT Constitutional: reports: no symptoms reported. denies: chills, fever Eyes: reports: no symptoms reported Ears, Nose, Mouth & Throat: reports: no symptoms reported Cardiovascular: reports: no symptoms reported. denies: chest pain, edema Respiratory: reports: no symptoms reported. denies: cough Gastrointestinal: reports: no symptoms reported. denies: abdominal pain Genitourinary: reports: no symptoms reported Musculoskeletal: reports: no symptoms reported Integumentary: reports: no symptoms reported Neurological: reports: no symptoms reported. denies: dizziness/vertigo, headache/migraines Psychiatric: reports: no symptoms reported. denies: anxiety Endocrine: reports: no symptoms reported. denies: change in skin pigment, excessive sweating Hematologic/Lymphatic: reports: no symptoms reported Allergic/Immunologic: reports: asthma All Other Systems: Reviewed and Negative Past History - Adult - PAST MEDICAL HISTORY-ADULT Review of Records: reports: Old Records Reviewed, Nursing Assessment Review, Medications Reviewed, Social history reviewed & non-contributory. Major Childhood Illnesses: reports: denies history Cardiovascular: reports: HTN Respiratory: reports: asthma Gastrointestinal: reports: denies history Obstetrical/Gynecological: reports: denies history Genitourinary: reports: denies history Musculoskeletal: reports: denies history Neurological: reports: denies history Psychiatric: reports: anxiety, depression Endocrine/Immune: reports: denies history Other Conditions: reports: denies history - PRIOR SURGERIES/PROCEDURES Surgical/Procedure History: reports: , orthopedic (extremity) (R elbow Sx), breast (reduction) - PRIOR HOSPITALIZATIONS Prior Hospitalizations: reports: none - IMMUNIZATION STATUS Childhood Immunizations: See Nurse Assessment Flu Vaccine: See Nurse Assessment - FAMILY HISTORY Family History: reviewed, not pertinent - SOCIAL HISTORY Smoking: quit greater than 1 year, cigarettes Alcohol Use Frequency: occasionally Living Situation: family Physical Exam-General - PHYSICAL EXAM-ADULT Initial Vital Signs Reviewed: Yes - CONSTITUTIONAL General Appearance: appears well, alert, no apparent distress - EYES Eyes: pink conjunctivae - HEAD, EARS, NOSE, MOUTH & THROAT HENMT: normocephalic/atraumatic, moist mucous membranes, normal ENT inspection, TMs normal, pharynx normal - NECK Neck: non-tender, full range of motion, supple, normal inspection - RESPIRATORY Respiratory: rhonchi, wheezing (bilateral wheezing m) Progress - PLAN OF CARE/RESULTS Progress/Plan/Lab Results: Vital Signs - 8 hr 05/20/18 15:36 05/20/18 15:56 05/20/18 17:02 Temperature 97.8 F Pulse Rate 108 H 64 68 Respiratory Rate 20 18 22 Blood Pressure 140/74 O2 Sat by Pulse Oximetry 95 95 05/20/18 18:31 Temperature Pulse Rate 69 Respiratory Rate 18 Blood Pressure O2 Sat by Pulse Oximetry Orders Category Date Time Status IV Insertion ORDERED Care 05/20/18 19:25 Active UA [ED: Urine Bedside] ORDERED Care 05/20/18 19:25 Active CHEST-1 VIEW [RAD] Stat Exams 05/20/18 15:41 Completed CBC WITH DIFF [HEME] Stat Lab 05/20/18 19:25 Uncollected COMPREHENSIVE METABOLIC PANEL [CHEM] Stat Lab 05/20/18 19:25 Uncollected UA [URINALYSIS W/POSS RFLX CULT] [URINALYSIS] Stat Lab 05/20/18 19:25 Uncollected Albuterol 2.5MG/Ipratrop 0.5MG [Duoneb (A & A)] Med 05/20/18 16:44 Discontinued 3 ml INH NOW ONE Albuterol [Albuterol Neb] Med 05/20/18 15:42 Discontinued 2.5 mg INH NOW ONE Albuterol [Albuterol Neb] Med 05/20/18 18:28 Discontinued 2.5 mg INH NOW ONE Magnesium Sulfate 1 gm/100 ml Over 1 Hr Med 05/20/18 19:30 Ordered Magnesium Sulfate 1 gm/D5w 1 gm in 100 ml IV NOW Prednisone Med 05/20/18 16:44 Discontinued 50 mg PO NOW ONE Aerosol Treatments Routine Oth 05/20/18 16:44 Completed Aerosol Treatments Routine Oth 05/20/18 18:28 Completed Aerosol Treatments Stat Oth 05/20/18 16:44 Completed Aerosol Treatments Stat Oth 05/20/18 18:28 Completed After several breathing treatments the patient still has a significant amount of wheezing bilaterally, and while she reports she feels better this makes her second visit in less than three weeks for the same symptoms which she reports did not improve with albuterol and Prednisone. Dr. Rey also saw the patient on 05/03/18 and felt that she needed to be admitted at that time, but she declined. - CONSULTS/PCP/HOSPITALIST Notification #1 *Consult/PCP/Hospitalist*: Dr. Daley Time Discussed: 19:32 Consult Disposition: Admit (Recommended that we give her Magnesium in the ED.) Departure - Departure Date of Disposition Decision: 05/20/18 Time of Disposition Decision: 19:32 DIAGNOSIS: Asthma exacerbation, COPD (chronic obstructive pulmonary disease) Disposition: ADMITTED INPATIENT 09 Certified Medical Emergency: Emergent Condition: Stable Referrals and Follow-Ups: Celestino Townsend MD [Primary Care Provider] - - Critical Care Note This patient required my direct & personal management of CC.: No Attestation - Physician/ NIGEL Attestation Patient care was provided by Advanced Practice Provider:: Yes Advanced Practice Provider:: Jarvis Barr Advanced Practice Provider documentation review:: The Mid-level provider d ocumentation, treatment plan and medical decision making was reviewed by the physician who agrees with all treatment and medical decision making by the MLP. The physician spent face to face time with patient:: No Advanced Practice Provider documentation review:: Supervising physician onsite and consulted in the evaluation and care of this patient. The physician did not have a face to face encounter with the patient. This chart was documented by the indicated scribe, (Nadya Rodríguez, Gustavo) and accurately reflects the services I performed and decisions made by me, Jarvis Barr CRNP, as attested by the provider's signature.
[2018-05-20 20:09] LABS: URINE SOURCE CLEAN CATCH
[2018-05-20 20:15] LABS: BASO# 0.05 X1000 (0.0-0.2); BASO% 0.6 % (0.0-0.8); BILIRUBIN URINE NEGATIVE (NEGATIVE); BLOOD URINE NEGATIVE (NEGATIVE); COLOR YELLOW; EOS# 0.64 X1000 (0.0-0.7); EOS% 7.8 % (0.0-10.0); GLUCOSE URINE NEGATIVE (NEGATIVE); HEMATOCRIT 39.7 % (37.0-47.0); HEMOGLOBIN 12.7 g/dL (12.0-16.0); IMM GRAN# 0.02 X1000 (0.0-0.04); IMM GRAN% 0.2 % (0.0-0.5); KETONE URINE NEGATIVE (NEGATIVE); LEUKOCYTES URINE NEGATIVE (NEGATIVE); LYMPH# 1.78 X1000 (1.2-3.4); LYMPH% 21.8 % (20.5-51.1); MCH 26.6 PG (27-31); MCV 83.1 FL (81-99); MONO% 7.3 % (1.7-9.3); MPV 10.1 FL (7.4-10.4); NEUT# 5.08 X1000 (1.4-6.5); NEUT% 62.3 % (42.2-75.2); NITRITE URINE NEGATIVE (NEGATIVE); PLT 313 X1000 (130-400); PROTEIN URINE TRACE mg/dL (NEGATIVE); RBC 4.78 XMIL (4.2-5.4); RDW 15.5 % (11.5-14.5); SP GRAVITY URINE 1.023; TURBIDITY URINE CLEAR (CLEAR); UR EPITHELIAL CELLS <10 /HPF (<10); URINE BACTERIA NEGATIVE /HPF; URINE RBC <10 /HPF (<10); URINE WBC <10 /HPF (<10); UROBILINOGEN URINE NORMAL (NORMAL); WBC 8.17 X1000 (4.8-10.8)
[2018-05-20 20:33] LABS: AGAP 9; ALB/GLOB RATIO 1.5; ALBUMIN 3.9 g/dL (3.5-5.0); ALKALINE PHOSPHATASE 56 U/L (32-104); BUN 14 mg/dL (8-22); CHLORIDE 111 mmol/L (98-107); COSMO 287; CREATININE 0.8 mg/dL (0.5-0.9); ESTIMATED GFR > 60; GLUCOSE 93 mg/dL (70-104); GOT 11 U/L (10-30); GPT 10 U/L (10-36); POTASSIUM 4.1 mmol/L (3.5-5.1); SODIUM 144 mmol/L (136-145); TCO2 24 mmol/L (25-35); TOTAL PROTEIN 6.5 g/dL (6.3-8.3)
--- NOTE | 2018-05-20 21:07 | HISTORY AND PHYSICAL ---
PRIMARY CARE PHYSICIAN: Dr. Townsend. CHIEF COMPLAINT: Shortness of breath, cough. HISTORY OF PRESENTING ILLNESS: 43-year-old female with a history of asthma presented to emergency department with 2 days history of worsening shortness of breath. The patient states that she was having difficulty breathing. She tried inhalers and was on prednisone however she did not have any improvement. She was evaluated in the emergency department. She was moderately dyspneic. She received nebs treatment and steroids however she continued to have shortness of breath. Due to her presenting symptoms, it was thought that we will place her for observation for further evaluation management. Time of my examination she denied any headache, vision changes, fevers, chills, nausea, vomiting, diarrhea, hemoptysis, melena, or any weight changes but complained of shortness of breath. PAST MEDICAL HISTORY: Includes asthma. PAST SURGICAL HISTORY: Left arm surgery. ALLERGIES: Sulfa, eggs, nuts, milk. CURRENT MEDICATIONS: Include albuterol inhaler q.i.d., clonazepam 0.5 mg t.i.d., prednisone 20 mg p.o. daily, Ambien 5 mg p.o. at bedtime. SOCIAL HISTORY: She is a former smoker. Quit about 10 years ago. No history of alcohol or illicit drug use. FAMILY HISTORY: No history of coronary disease. REVIEW OF SYSTEMS: Fourteen point review of system is as in HPI. Other systems negative. PHYSICAL EXAMINATION: GENERAL: Cooperative, friendly female. She is resting more comfortably now. VITAL SIGNS: Temperature 97.8 degrees, pulse 108, respirations 20, blood pressure 140/74, she is saturating 95%. HEENT: Atraumatic, normocephalic. Extraocular movements intact. PERRLA. NECK: No masses. CHEST: Rhonchi. CARDIOVASCULAR: Regular rate and rhythm. S1, S2. ABDOMEN: Soft. Positive bowel sounds. EXTREMITIES: No edema. NEUROLOGIC: Is awake, alert, oriented x3. : No bladder distention. SKIN: Warm. LABORATORIES AND STUDIES: Chest x-ray is negative. WBC is 8.17, hemoglobin 12.7, hematocrit 39.7, platelets 313,000. Sodium 144, potassium 4.1, chloride 111, CO2 24, BUN is 14, creatinine 0.8, glucose 93. ASSESSMENT: A 43-year-old female with a history of asthma who had presented to the emergency department with 2 days history of worsening shortness of breath. She was evaluated in the emergency department. She had only minimal improvement after duo nebs and Solu-Medrol. Subsequently she will require admission for further management. Asthma exacerbation. PLAN: 1. We will admit patient to medical floor. 2. Continue with duo nebs, IV Solu-Medrol. 3. We will check a peak flow meter. 4. We will continue to follow and reassess. Make further recommendation based on patient's clinical course. cc: Dominic Daley MD
[2018-05-20 23:30] LABS: BASO# 0.03 X1000 (0.0-0.2); BASO% 0.2 % (0.0-0.8); EOS# 0.16 X1000 (0.0-0.7); EOS% 1.1 % (0.0-10.0); HEMATOCRIT 40.9 % (37.0-47.0); IMM GRAN# 0.02 X1000 (0.0-0.04); IMM GRAN% 0.1 % (0.0-0.5); LYMPH# 0.67 X1000 (1.2-3.4); LYMPH% 4.5 % (20.5-51.1); MCH 26.4 PG (27-31); MCHC 31.8 g/dL (33-37); MCV 83.1 FL (81-99); MONO% 0.7 % (1.7-9.3); NEUT# 13.93 X1000 (1.4-6.5); NEUT% 93.4 % (42.2-75.2); PLT 311 X1000 (130-400); RBC 4.92 XMIL (4.2-5.4); RDW 15.2 % (11.5-14.5); WBC 14.91 X1000 (4.8-10.8)
[2018-05-20 23:59] LABS: SEGS 100 % (42-75)
[2018-05-21 00:01] LABS: AGAP 12; BUN 13 mg/dL (8-22); CALCIUM 9.2 mg/dL (8.8-10.2); CHLORIDE 108 mmol/L (98-107); COSMO 284; CREATININE 0.7 mg/dL (0.5-0.9); ESTIMATED GFR > 60; GLUCOSE 142 mg/dL (70-104); POTASSIUM 4.2 mmol/L (3.5-5.1); SODIUM 141 mmol/L (136-145); TCO2 21 mmol/L (25-35)
[2018-05-21] MEDS: SOLU-MEDROL IV SCH ×2 (00:01→05:59)
[2018-05-21] MEDS: KLONOPIN PO SCH ×2 (00:02→09:21)
[2018-05-21] MEDS: DUONEB (A & A) INH PRN ×3 (00:31→10:08)
[2018-05-21 08:06] VITALS: BP 139/68
--- NOTE | 2018-05-21 19:09 | DISCHARGE SUMMARY ---
ADMISSION DATE: 05/20/2018 DISCHARGE DATE: 05/21/2018 IMAGING: Chest x-ray with no acute process. LABORATORY: WBC 8.17, CBC otherwise unremarkable. Basic metabolic panel unremarkable. Urinalysis negative. DISCHARGE DIAGNOSES: 1. Mild asthma exacerbation. 2. Viral upper respiratory infection. 3. Seasonal allergies. 4. Former smoker. HOSPITAL COURSE: The patient presented with two days of increasing shortness of breath primarily with exertion. She tried her home inhaler and low-dose prednisone. It was not improving, so she came to the ER. On evaluation in the ED, we were asked to admit for further evaluation and treatment. She was placed on higher dose steroids and DuoNeb with rapid improvement. The patient was never hypoxic. Her lowest sat appears to have been 95% room air. No source of bacterial infection was identified. On the day of discharge, her wheezing was much improved. She was saturating well on room air. She was ambulating with no difficulty. Therefore, she was discharged home on extended course of steroids, with the addition of Spiriva. DISCHARGE VITAL SIGNS: Pulse 97, respirations 20, blood pressure 139/68, O2 sat 95% on room air. DISCHARGE EXAMINATION: General: No acute distress. Vitals: As above. HEENT: Normocephalic, atraumatic. Moist mucous membranes. Neck: No JVD. No cervical adenopathy. Cardiovascular: Regular rate and rhythm. No murmurs, rubs or gallops. Pulmonary: Clear to auscultation bilaterally. No rales or rhonchi noted. Very faint end-expiratory wheeze noted. Abdomen: Soft, nontender, nondistended. Bowel sounds positive. Extremities: Peripheral pulses intact. No clubbing, cyanosis or edema. Neurologic: Cranial nerves 2-12 grossly intact. No focal deficits identified. Psychiatric: Normal mood and affect. Awake, alert, oriented x 3. Skin: No new rashes or lesions identified. DISCHARGE DIET: Regular. DISCHARGE MEDICATIONS: 1. Ambien 5 mg p.o. at bedtime p.r.n. 2. DuoNeb q.6 hours p.r.n. 3. Flonase nasal spray b.i.d. p.r.n. 4. Klonopin as previously prescribed. 5. Prednisone 80 mg x 2 days, then 60 mg x 2 days, then 40 mg x 2 days, then 20 mg x 2 days, then 10 mg x 2 days. 6. Albuterol inhaler q.4 hours p.r.n. 7. Singulair 10 mg p.o. daily. 8. Spiriva inhaler 1 puff inhaled daily. 9. Home Advair as previously prescribed. FOLLOWUP AND PLAN: Patient discharged home with extended steroid taper. The patient instructed to discuss with her PCP prior to the end of that taper if they want to extend that as patient has been on 5 or more mg of prednisone for an extended period and may need extended taper to avoid adrenal insufficiency. TIME SPENT: Greater than 30 minutes spent arranging discharge and counseling patient.
== END 2018-05-21 14:17 | disposition home or self-care (01) | DRG 203 ==
LOC: ED 15:11 → 3N 15:11 → OBSVTOIN 20:28 → SUATTDRO 20:28
PROVIDERS: ATTEND Internal Medicine
CPT/HCPCS: 71010; 71045; 80048; 80053; 81001; 81025; 85025; 94640; 94760; 96365; 99285; A9270; J2930; J3475; J7506; J7512

== ENCOUNTER 2018-10-09 05:41 | Inpatient (IN) ==
--- NOTE | 2018-10-09 06:07 | PROVIDER DOCUMENTATION ---
HPI-Respiratory General - General Chief Complaint: Asthma Attack Stated Complaint: ASTHMA Time Seen by Provider: 10/09/18 06:01 Allergies/Adverse Reactions: Patient Allergies Allergy/AdvReac Type Severity Reaction Status Date / Time Sulfa (Sulfonamide Allergy Severe ANAPHYLAXIS Verified 07/26/18 23:34 Antibiotics) egg Allergy ANAPHYLAXIS Verified 07/26/18 23:34 nut - unspecified Allergy ANAPHYLAXIS Verified 07/26/18 23:34 milk AdvReac Unknown Verified 07/26/18 23:34 tree nut AdvReac Unknown Verified 07/26/18 23:34 Home Medications: Home Medication List Medication Instructions Recorded Confirmed Last Taken Type Zolpidem [Ambien] 5 mg PO HS #30 tablet 11/17/15 05/20/18 02/09/18 21:00 Rx Fluticasone 50 Mcg Nasal [place] 1 spray MALA BID #1 bottle 05/09/16 05/20/18 02/10/18 10:00 Rx [Flonase] Albuterol 2.5MG/Ipratrop 0.5MG 3 ml INH RTQ6H PRN #180 neb 02/15/18 05/20/18 Unknown Rx [Duoneb (A & A)] Albuterol Sulfate [Proair Hfa] 2 puff IH Q4H PRN PRN #1 hfa.aer.ad 02/15/18 05/20/18 Unknown Rx Clonazepam [Klonopin] 0.5 mg PO 0900,1500,2100 #20 tab 03/14/18 05/20/18 Unknown Rx Mometasone Nasal [place] [Nasonex 1 spray MALA DAILY #1 bottle 05/03/18 05/20/18 Unknown Rx Nasal [place]] Montelukast [Singulair] 10 mg PO DAILY #30 tab 05/21/18 Unknown Rx Prednisone 20 mg PO DIRECTED #21 tab 05/21/18 Unknown Rx Tiotropium [place] Inhaler 1 puff INH DAILY #1 inhaler 05/21/18 Unknown Rx [Spiriva] Dicyclomine [Bentyl] 20 mg PO Q6H PRN #30 cap 06/08/18 Unknown Rx Ondansetron [Zofran] 4 mg PO Q4H PRN PRN #30 tab 06/08/18 Unknown Rx Albuterol [Albuterol Neb] 2.5 mg INH Q4H PRN PRN #30 neb 06/18/18 Unknown Rx Albuterol [Albuterol Neb] 2.5 mg INH Q4H PRN PRN #30 neb 07/27/18 Unknown Rx Amoxicillin/Pot Clavulanate 875 mg PO Q12HR #14 tab 07/27/18 Unknown Rx [Augmentin] - History of Present Illness-Resp Nature of Presenting Problem: A 43 Y/O FEMALE WITH PMHx OF ASTHMA PRESENTS WITH SOB SINCE LAST NIGHT. PER PT HER BREATHING GOT WORSE AND SHE TOOK RESCUE INHALER, HER HOME INHALERS AND NEB TREATMENT AND IT DID NOT HELP. CHEST FEELS TIGHT. HAS DRY COUGH, DENIES ANY FEVER OR CHILLS ANY OTHER UPPER RESPIRATORY SYMPTOMS. Quality of Pain: reports: tightness Timing: reports: still present Context: denies: recent foreign travel, insect bite (possible tick), recent chemotherapy, multiple patients with similar complaints, recent URI, out of meds, sports/exercise, aspiration/choking Exposure: reports: allergen exposure Cough Quality/Degree: reports: mild, dry cough Current Respiratory Medication Therapy: Initiated see nurses note Modifying Factors: improves with: albuterol inhaler. worse with: coughing Associated Symptoms: reports: cough, shortness of breath, wheezing. denies: chest pain/soreness, dizziness, earache, facial pain, fever/chills, flu-like symptoms, headache, heart racing, hurts to breathe, hyperventilating, lightheadedness, muscle/bodyaches, nasal congestion, nasal drainage, sinus pain, sore throat, sweaty Similar Symptoms Previously?: Yes Recently seen or treated by another doctor?: No Review of Systems - Adult - REVIEW OF SYSTEMS - ADULT Constitutional: denies: no symptoms reported Eyes: denies: no symptoms reported Ears, Nose, Mouth & Throat: denies: no symptoms reported Cardiovascular: denies: no symptoms reported Respiratory: reports: see HPI Gastrointestinal: denies: no symptoms reported Genitourinary: denies: no symptoms reported Musculoskeletal: denies: no symptoms reported Integumentary: denies: no symptoms reported Neurological: denies: no symptoms reported Psychiatric: denies: no symptoms reported Endocrine: denies: no symptoms reported Hematologic/Lymphatic: denies: no symptoms reported Allergic/Immunologic: denies: no symptoms reported Past History - Adult - PAST MEDICAL HISTORY-ADULT Review of Records: reports: Old Records Reviewed, Nursing Assessment Review, Medications Reviewed, Social history reviewed & non-contributory. Major Childhood Illnesses: reports: denies history Cardiovascular: reports: HTN Respiratory: reports: asthma Gastrointestinal: reports: denies history Obstetrical/Gynecological: reports: denies history Genitourinary: reports: denies history Musculoskeletal: reports: denies history Neurological: reports: denies history Psychiatric: reports: anxiety, depression Endocrine/Immune: reports: denies history Other Conditions: reports: denies history - PRIOR SURGERIES/PROCEDURES Surgical/Procedure History: reports: , orthopedic (extremity) (R elbow Sx), breast (reduction) - PRIOR HOSPITALIZATIONS Prior Hospitalizations: reports: none - IMMUNIZATION STATUS Childhood Immunizations: See Nurse Assessment Flu Vaccine: See Nurse Assessment - FAMILY HISTORY Family History: reviewed, not pertinent Physical Exam-General - PHYSICAL EXAM-ADULT Initial Vital Signs Reviewed: Yes - CONSTITUTIONAL General Appearance: appears well, alert, mild distress - EYES Eyes: PERRL/EOMI - HEAD, EARS, NOSE, MOUTH & THROAT HENMT: normocephalic/atraumatic, moist mucous membranes, normal ENT inspection, pharynx normal - NECK Neck: non-tender, supple, normal inspection - RESPIRATORY Respiratory: decreased breath sounds, accessory muscle use, wheezing, increased rate - CARDIOVASCULAR Cardiovascular: regular rate, rhythm, no edema, no murmur - GASTROINTESTINAL (ABDOMEN) Abdominal Exam: normal bowel sounds, non tender, soft - MUSCULOSKELETAL Back Exam: normal inspection, no vertebral tenderness Extremity: no pedal edema - SKIN Integumentary: normal color, warm/dry - NEUROLOGIC Neurologic: grossly normal - PSYCHIATRIC Psych/Mental Status: normal mood/affect, oriented x 3 Progress - PLAN OF CARE/RESULTS Progress/Plan/Lab Results: Vital Signs - 8 hr 10/09/18 05:45 10/09/18 05:58 10/09/18 06:00 Temperature 98.4 F Pulse Rate 97 H 97 H 96 H Respiratory Rate 22 19 23 Blood Pressure 142/77 O2 Sat by Pulse Oximetry 92 L 94 L 10/09/18 06:04 10/09/18 06:05 10/09/18 06:10 Temperature Pulse Rate 93 H 95 H 90 Respiratory Rate 21 25 H 19 Blood Pressure 116/71 O2 Sat by Pulse Oximetry 97 97 98 10/09/18 06:20 10/09/18 06:30 10/09/18 06:40 Temperature Pulse Rate 93 H 99 H 100 H Respiratory Rate 20 23 17 Blood Pressure O2 Sat by Pulse Oximetry 97 95 93 L 10/09/18 06:50 Temperature Pulse Rate 91 H Respiratory Rate 15 Blood Pressure O2 Sat by Pulse Oximetry 96 Laboratory Results - last 24 hr 10/09/18 10/09/18 06:25 06:25 WBC 7.16 RBC 4.66 Hgb 11.6 L Hct 36.7 L MCV 78.8 L MCH 24.9 L MCHC 31.6 L RDW Std Deviation 15.2 H Plt Count 314 MPV 11.0 H Immature Gran % (Auto) 0.3 Neut % (Auto) 53.0 Lymph % (Auto) 26.5 [place] % (Auto) 7.5 Eos % (Auto) 11.7 H Baso % (Auto) 1.0 H Immature Gran # (Auto) 0.02 Neut # (Auto) 3.79 Lymph # (Auto) 1.90 [place] # (Auto) 0.54 Eos # (Auto) 0.84 H Baso # (Auto) 0.07 Sodium 140 Potassium 3.8 Chloride 104 Carbon Dioxide 24 L Anion Gap 12 BUN 10 Creatinine 0.7 Estimated GFR/1.73 m2 > 60 BUN/Creatinine Ratio 14 Glucose 99 Calculated Osmolality 278 Calcium 8.9 Total Bilirubin 0.18 L AST 13 ALT 8 L Alkaline Phosphatase 68 Total Protein 6.4 Albumin 3.9 Globulin 2.5 Albumin/Globulin Ratio 1.6 Orders Category Date Time Status Nursing- Obtain EKG once Care 10/09/18 08:45 Active CHEST-1 VIEW [RAD] Stat Exams 10/09/18 06:02 Completed ABG [RESP] Routine Lab 10/09/18 08:56 Ordered BLOOD CULTURE [BLDCUL] Stat Lab 10/09/18 08:56 Uncollected CBC WITH ELECTRONIC DIFF [HEME] Stat Lab 10/09/18 06:25 Completed COMPREHENSIVE METABOLIC PANEL [CHEM] Stat Lab 10/09/18 06:25 Completed LACTATE, PLASMA [CHEM] Stat Lab 10/09/18 08:56 Uncollected PRO B-NATRIURETIC PEPTIDE Stat Lab 10/09/18 08:56 Uncollected SPUTUM CULTURE WITH GRAM STAIN [RM] Stat Lab 10/09/18 08:57 Uncollected TROPONIN T Stat Lab 10/09/18 08:56 Ordered 0.9% Sodium Chloride Inj [Ns] 1,000 ml Med 10/09/18 08:57 Active IV 999 mls/hr Albuterol [Albuterol Neb] Med 10/09/18 08:57 Discontinued 2.5 mg INH NOW ONE Budesonide [Pulmicort] Med 10/09/18 08:57 Discontinued 0.5 mg INH NOW ONE Levofloxacin 750 mg/D5w [Levaquin 750 mg/D5w] Med 10/09/18 08:58 Active 750 mg in 150 ml IV NOW Methylprednisolone Sod Succ [Solu-Medrol] Med 10/09/18 09:01 Once 125 mg IV NOW ONE Aerosol Treatments Routine Oth 10/09/18 08:58 Active Aerosol Treatments Stat Oth 10/09/18 08:58 Active EKG [EKG] Stat Ther 10/09/18 08:45 Draft Result Diagrams: 10/09/18 06:25 10/09/18 06:25 - REASSESSMENT Reassessment #1 Time Reassessed: 09:00 Status: unchanged (Seen and examined by me. Case discussed with Dr. Kelley at shift change. Patient has asthma plus COPD, not better after 3 neb treatments. sats drop below 92% on RA. Will ask hospitalist to admit. Will give additional albuterol and budesonide labs for a total of 5 neb treatments, IV steroids, levaquin) - EKG 1 Time of EKG reading by physician:: 05:54 EKG Interpretation (*Must complete 3 of following elements*): Normal Rate: 97 [place]: normal QRS: normal ST Wave: normal Comments: nsr. poor r progression in anterioseptal leads - XRAY 1 XRAY Study: Chest Impression: Abnormal, See EMR Report (Signed EXAM: CHEST-1 VIEW 10/09/2018 HISTORY: SOB TECHNIQUE: AP portable at 0610 COMMENT: There is minimal atelectasis in the lingula which was not present on 07/27/2018. Otherwise are has been no significant change. IMPRESSION: Lingular atelectasis. Electronically signed by Hussain Mancia 10/09/2018 6:59 AM 10/09/18 0659 Interpreting Physician: Hussain Mancia MD Dictated Date/Time: 10/09/18 0658 cc: Lio Kelley MD; Celestino Townsend MD) - CONSULTS/PCP/HOSPITALIST Notification #1 *Consult/PCP/Hospitalist*: JORDY Solis Time Discussed: :08 Consult Disposition: Will see in ED - CHANGE OF SHIFT REPORT (ED Provider) 1 Time of Transfer: 07:00 Items Pending: Labs, Other (SYMPTOM CONTROL) Departure - Departure Date of Disposition Decision: 10/09/18 Time of Disposition Decision: 09:08 DIAGNOSIS: Status asthmaticus with COPD (chronic obstructive pulmonary disease), Atelectasis of left lung Disposition: ADMITTED INPATIENT 09 Certified Medical Emergency: Emergent Condition: Fair Referrals and Follow-Ups: Celestino Townsend MD [Primary Care Provider] - Discharge Education: Asthma Attack - Critical Care Note This patient required my direct & personal management of CC.: Yes Total Time (mins): 38 Critical Care Statement: This patient required my direct personal management to treat or rule out processes, the absence of which, could potentiallly result in sudden, clinically significant life or limb threatening deterioration. Attestation - Physician/ NIGEL Attestation Patient care was provided by Advanced Practice Provider:: No The physician spent face to face time with patient:: Yes Advanced Practice Provider documentation review:: Supervising physician onsite and consulted in the evaluation and care of this patient. The physician did have a face to face encounter with the patient.
--- NOTE | 2018-10-09 07:02 | Diag Imaging Result Doc PS360 ---
EXAM: CHEST-1 VIEW 10/09/2018 HISTORY: SOB TECHNIQUE: AP portable at 0610 COMMENT: There is minimal atelectasis in the lingula which was not present on 07/27/2018. Otherwise are has been no significant change. IMPRESSION: Lingular atelectasis. Electronically signed by Hussain Mancia 10/09/2018 6:59 AM
[2018-10-09 07:07] LABS: BASO# 0.07 X1000 (0.0-0.2); EOS# 0.84 X1000 (0.0-0.7); EOS% 11.7 % (0.0-10.0); HEMATOCRIT 36.7 % (37.0-47.0); HEMOGLOBIN 11.6 g/dL (12.0-16.0); IMM GRAN# 0.02 X1000 (0.0-0.04); IMM GRAN% 0.3 % (0.0-0.5); LYMPH% 26.5 % (20.5-51.1); MCH 24.9 PG (27-31); MCHC 31.6 g/dL (33-37); MCV 78.8 FL (81-99); MONO# 0.54 X1000 (0.11-0.59); MONO% 7.5 % (1.7-9.3); NEUT# 3.79 X1000 (1.4-6.5); PLT 314 X1000 (130-400); RBC 4.66 XMIL (4.2-5.4); RDW 15.2 % (11.5-14.5); WBC 7.16 X1000 (4.8-10.8)
[2018-10-09 07:19] LABS: AGAP 12; ALB/GLOB RATIO 1.6; ALBUMIN 3.9 g/dL (3.5-5.0); ALKALINE PHOSPHATASE 68 U/L (32-104); BUN 10 mg/dL (8-22); CALCIUM 8.9 mg/dL (8.8-10.2); CHLORIDE 104 mmol/L (98-107); COSMO 278; CREATININE 0.7 mg/dL (0.5-0.9); ESTIMATED GFR > 60; GLUCOSE 99 mg/dL (70-104); GOT 13 U/L (10-30); GPT 8 U/L (10-36); POTASSIUM 3.8 mmol/L (3.5-5.1); SODIUM 140 mmol/L (136-145); TCO2 24 mmol/L (25-35); TOTAL BILIRUBIN 0.18 mg/dL (0.20-1.00); TOTAL PROTEIN 6.4 g/dL (6.3-8.3)
[2018-10-09] MEDS ORDERED: NS 1,000 ML IV ONE (08:57)
[2018-10-09] MEDS ORDERED: PULMICORT INH ONE (08:57)
[2018-10-09] MEDS ORDERED: ALBUTEROL NEB INH ONE (08:57)
[2018-10-09] MEDS ORDERED: LEVAQUIN 750 MG/D5W 750 MG/150 ML IVPB IV ONE (08:58)
--- NOTE | 2018-10-09 08:58 | EKG Report ---
Test Performed on : 10/09/2018 05:53:00 AM Test Reason : CHEST DISCOMFORT Blood Pressure : / mmHG Vent. Rate : 097 BPM Atrial Rate : 097 BPM P-R Int : 136 ms QRS Dur : 086 ms QT Int : 368 ms P-R-T Axes : 066 071 055 degrees QTc Int : 467 ms Normal sinus rhythm. Possible Anterior infarct (cited on or before 25-JUL-2015) Abnormal ECG When compared with ECG of 18-JUN-2018 10:26, QRS axis shifted right Unconfirmed Result
[2018-10-09] MEDS ORDERED: SOLU-MEDROL IV ONE (09:01)
[2018-10-09] MEDS ORDERED: MAGNESIUM SULFATE 2 GM/S.W.I. 2 GM/50 ML IVPB IV ONE (09:33)
[2018-10-09] MEDS ORDERED: PEPCID IV ONE (09:38)
[2018-10-09] MEDS ORDERED: SODIUM CHLORIDE 0.9% INJ ONE (09:38)
[2018-10-09] MEDS ORDERED: BENADRYL LIQUID PO ONE (09:40)
[2018-10-09] MEDS ORDERED: ZYRTEC LIQUID PO ONE (09:41)
[2018-10-09 09:47] LABS: ALLEN TEST YES; BE 2.6 mmoll (-3.0-3.0); BLOOD TYPE ARTERIAL; HCO3-(ACT) 26.8 mmoll (20.0-26.0); O2(CT) 14.5 mL/dL (15.0-23.0); PCO2(98.6) 45 mmHg (35-45); PO2(98.6) 57 mmHg (60-100); SAMPLE BLOOD; SAO2 91.6 % (95.0-100.0); THB 11.5 g/dL (11.5-17.4)
[2018-10-09 09:49] LABS: O2HB 89.5 % (95.0-99.0)
[2018-10-09] MEDS ORDERED: SODIUM CHLORIDE 0.9% INJ SCH (10:15)
--- NOTE | 2018-10-09 10:58 | HISTORY AND PHYSICAL ---
PRIMARY CARE PHYSICIAN: Celestino Townsend MD. CHIEF COMPLAINT: Shortness of breath. HISTORY OF PRESENT ILLNESS: This is a 43-year-old female with a history of asthma and multiple food allergies causing anaphylaxis, who presents to the emergency room complaining of shortness of breath. She stated this started last night. She tried taking her home medications. Symptoms just increased, prompting her visit to the emergency room. She did have a room air saturation of 92 on arrival. She has received albuterol breathing treatments, as well as Pulmicort in the emergency room, and she is being admitted for further evaluation and treatment. PAST MEDICAL HISTORY: 1. Chronic obstructive pulmonary disease. 2. Asthma. 3. Seasonal allergies. 4. Multiple food allergies. PAST SURGICAL HISTORY: Left arm surgery. SOCIAL HISTORY: She is a former smoker; she quit about 10 years ago. She denies alcohol or illicit drug use. ALLERGIES: Sulfa, eggs, nuts and milk that cause anaphylaxis. REVIEW OF SYSTEMS: Discussed with the patient with pertinent positives stated in the HPI. She denies any syncope or dizziness, chest pain, palpitations, a productive cough, any fevers or chills, nausea, vomiting, diarrhea, constipation, black or bloody vomitus or stool, hematuria, dysuria, frequency or urgency. PHYSICAL EXAMINATION: GENERAL: This is a 43-year-old female who is sitting up on the stretcher in the emergency room in mild distress. VITAL SIGNS: Blood pressure is 142/76 with a heart rate of 98, respirations are 19 to 22, temperature is 98.4 degrees with O2 saturation 92 to 94 percent. EYES: Pupils equal, round, react to light. EOMS are intact. Sclerae are anicteric. HENT: Head is normocephalic, atraumatic. Mucous membranes are moist. NECK: Supple with trachea midline. CARDIOVASCULAR: Regular rate and rhythm. S1, S2 appreciated. No murmur. No edema. Calves are nontender bilateral with peripheral pulses palpable x4 extremities. PULMONARY: Breath sounds are decreased throughout with inspiratory/expiratory wheezing, as well as rhonchi that do not clear to cough. She does have increased work of breathing noted GASTROINTESTINAL: Abdomen is soft, nontender, nondistended with bowel sounds in all 4 quadrants. SKIN: Warm and dry. NEUROLOGIC: She is alert and oriented x3. LABS: WBC is 7.1 with hemoglobin 11.6, hematocrit 36.7, platelets of 314. Sodium 140, potassium 3.8, BUN 10, creatinine 0.7 with a glucose of 99. Blood cultures are pending. X-RAYS: Chest x-ray revealed lingular atelectasis. ASSESSMENT AND PLAN: 1. Status asthmaticus. 2. Chronic obstructive pulmonary disease acute exacerbation. 3. Atelectasis, left lung. 4. Shortness of breath. PLAN: The patient will be admitted. She will be placed on telemetry. We will give albuterol nebs q. 4 hours when awake with steroids to taper. We will identify her home medications and continue as appropriate. The patient states that she has anaphylaxis with eggs, nuts, milk, all milk products, as well as sulfa. She does state she has had trouble taking medications in the past. She is unsure if she has come in contact with any of these foods prior to exacerbation. We will give IV Pepcid b.i.d. We will give liquid Benadryl and liquid Zyrtec as these do not have any milk-containing products and the capsules may. Would give 2 g of Mag now. She was given Levaquin in the emergency room; we will continue this. We will obtain a sputum culture. We will recheck a CBC, a BMP and magnesium in the morning. For DVT prophylaxis, we will use SCDs and GI prophylaxis, the Pepcid. Further treatments pending hospital course. Plan discussed with Dr Zurita Dictated by JORDY Sims for Travis Zurita MD cc: JORDY Sims Agree with the above. the following is my own face to face assessment. moving air fairly well but with significant expiratory wheezing and increased work of breathing. will give magnesium, nebs, steroids and monitor closely. MTDD
[2018-10-09] MEDS: ALBUTEROL NEB INH SCH ×4 (11:50→23:25)
[2018-10-09] MEDS: NS 1,000 ML IV SCH (12:38)
[2018-10-09] MEDS: KLONOPIN PO SCH ×2 (15:03→20:42)
[2018-10-09] MEDS: BENADRYL LIQUID PO SCH ×2 (15:04→20:40)
[2018-10-09] MEDS: SOLU-MEDROL IV SCH ×2 (16:30→21:00)
[2018-10-09] MEDS: PEPCID IV SCH (20:41)
[2018-10-09] MEDS: AMBIEN PO PRN (20:42)
[2018-10-10] MEDS: BENADRYL LIQUID PO SCH ×2 (01:13→08:25)
[2018-10-10] MEDS: TYLENOL PO PRN (01:13)
[2018-10-10] MEDS: NS 1,000 ML IV SCH ×2 (01:17→15:51)
[2018-10-10] MEDS: SOLU-MEDROL IV SCH ×5 (04:38→21:06)
[2018-10-10] MEDS: PRILOSEC PO SCH (06:06)
[2018-10-10 06:22] LABS: BASO# 0.01 X1000 (0.0-0.2); BASO% 0.1 % (0.0-0.8); EOS# 0.01 X1000 (0.0-0.7); EOS% 0.1 % (0.0-10.0); HEMATOCRIT 35.3 % (37.0-47.0); HEMOGLOBIN 11.1 g/dL (12.0-16.0); IMM GRAN# 0.02 X1000 (0.0-0.04); IMM GRAN% 0.2 % (0.0-0.5); LYMPH# 0.75 X1000 (1.2-3.4); LYMPH% 9.2 % (20.5-51.1); MCH 24.7 PG (27-31); MCHC 31.4 g/dL (33-37); MCV 78.4 FL (81-99); MONO% 3.7 % (1.7-9.3); MPV 10.6 FL (7.4-10.4); NEUT% 86.7 % (42.2-75.2); PLT 315 X1000 (130-400); RDW 15.1 % (11.5-14.5); WBC 8.19 X1000 (4.8-10.8)
[2018-10-10 07:22] LABS: AGAP 13; BUN 8 mg/dL (8-22); CALCIUM 8.6 mg/dL (8.8-10.2); CHLORIDE 107 mmol/L (98-107); COSMO 280; CREATININE 0.5 mg/dL (0.5-0.9); ESTIMATED GFR > 60; GLUCOSE 133 mg/dL (70-104); MAGNESIUM 2.1 mg/dL (1.5-2.7); POTASSIUM 3.7 mmol/L (3.5-5.1); SODIUM 140 mmol/L (136-145); TCO2 20 mmol/L (25-35)
[2018-10-10] MEDS: ALBUTEROL NEB INH SCH ×4 (07:57→19:57)
[2018-10-10] MEDS: PEPCID IV SCH (08:26)
[2018-10-10] MEDS: SINGULAIR PO SCH (08:26)
[2018-10-10] MEDS: LEVAQUIN 750 MG/D5W 750 MG/150 ML IVPB IV SCH ×2 (08:26→10:04)
--- NOTE | 2018-10-10 08:55 | Diag Imaging Result Doc PS360 ---
EXAM: CHEST-PORTABLE HISTORY: dyspnea, likely asthma, rule out pneumonia. TECHNIQUE: Portable chest single view COMPARISON: 10/09/2018 FINDINGS: The lungs are well expanded. The heart is not enlarged. The vessels are not distended. There are no infiltrates. No effusion identified. IMPRESSION: No pneumonia Electronically signed by Tariq العراقي 10/10/2018 8:53 AM
--- NOTE | 2018-10-10 16:47 | PROGRESS NOTE ---
DATE: 10/10/2018 INTERVAL HISTORY: The patient still with some fairly significant wheezing, but symptomatically markedly improved. No longer with accessory muscle use or increased work of breathing. States that she feels much better. Not yet back to baseline. No new complaints. REVIEW OF SYSTEMS: Twelve point review of systems negative, except as per interval history. LABS: WBC 8.1, hemoglobin 11.1, hematocrit 35.3, platelets 315. Sodium 140, potassium 3.7, BUN 8, creatinine 0.5, glucose 133. IMAGING: Chest x-ray clear with no evidence of pneumonia. VITALS: T-max 98.1 degrees, pulse 113, respirations 17, blood pressure 147/81, O2 saturation 98% on room air. PHYSICAL EXAMINATION: General: No acute distress. Vitals: As above. HEENT: Normocephalic, atraumatic. Moist mucous membranes. Neck: No cervical adenopathy. Cardiovascular: Minimally tachycardic, but regular. No murmurs noted. Pulmonary: Somewhat improved air entry still with fairly diffuse primarily expiratory wheezing throughout. Abdomen: Soft, nontender, nondistended. Bowel sounds positive. Extremities: Peripheral pulses intact. No clubbing, cyanosis, or edema. Neurologic: Cranial nerves grossly intact. No focal deficits identified. Psychiatric: Normal mood and affect. Awake, alert, oriented x3. Skin: No new rashes or lesions identified. ASSESSMENT AND PLAN: 1. Asthma exacerbation. Patient is still with some significant wheezing, but markedly improved dyspnea. No longer requiring any oxygen. We will begin weaning steroids. Continue nebulizers. Repeat chest x-ray still with no evidence of pneumonia, so we will discontinue antibiotics. 2. Anxiety. The patient states she was on Klonopin at home, but when PDMP was reviewed, she appears to not have had a prescription for Klonopin since March. Advised patient to discuss further treatment with her primary care physician. 3. Hyperglycemia, likely steroid induced. No need for further workup at this time.
[2018-10-10] MEDS: BREO ELLIPTA 100/25 MCG INH INH SCH (18:36)
[2018-10-10] MEDS: AMBIEN PO PRN (22:19)
[2018-10-11] MEDS: ALBUTEROL NEB INH SCH ×6 (00:04→22:41)
[2018-10-11] MEDS: SOLU-MEDROL IV SCH ×4 (03:11→21:50)
[2018-10-11] MEDS: NS 1,000 ML IV SCH ×2 (03:11→18:41)
[2018-10-11] MEDS: PRILOSEC PO SCH (06:03)
[2018-10-11] MEDS: BREO ELLIPTA 100/25 MCG INH INH SCH (07:46)
[2018-10-11 08:16] LABS: HEMATOCRIT 34.5 % (37.0-47.0); HEMOGLOBIN 10.8 g/dL (12.0-16.0); IMM GRAN# 0.03 X1000 (0.0-0.04); IMM GRAN% 0.2 % (0.0-0.5); LYMPH# 0.73 X1000 (1.2-3.4); MCH 24.7 PG (27-31); MCHC 31.3 g/dL (33-37); MCV 78.9 FL (81-99); MONO# 0.25 X1000 (0.11-0.59); MONO% 1.7 % (1.7-9.3); MPV 10.5 FL (7.4-10.4); NEUT# 13.67 X1000 (1.4-6.5); NEUT% 93.1 % (42.2-75.2); PLT 337 X1000 (130-400); RBC 4.37 XMIL (4.2-5.4); RDW 15.2 % (11.5-14.5); WBC 14.68 X1000 (4.8-10.8)
[2018-10-11 08:41] LABS: AGAP 12; BUN 10 mg/dL (8-22); CALCIUM 8.8 mg/dL (8.8-10.2); CHLORIDE 107 mmol/L (98-107); COSMO 282; CREATININE 0.6 mg/dL (0.5-0.9); ESTIMATED GFR > 60; GLUCOSE 167 mg/dL (70-104); LARGE PLATELETS OCCASIONAL; LYMPHS 12 % (21-51); MONO 1 % (1-9); SEGS 87 % (42-75); SODIUM 140 mmol/L (136-145); TCO2 21 mmol/L (25-35)
[2018-10-11 08:42] LABS: ANISOCYTOSIS OCCASIONAL
[2018-10-11] MEDS: SINGULAIR PO SCH (09:48)
[2018-10-11] MEDS: LEVAQUIN 750 MG/D5W 750 MG/150 ML IVPB IV SCH (09:56)
[2018-10-11] MEDS: TYLENOL PO PRN (10:03)
--- NOTE | 2018-10-11 17:32 | PROGRESS NOTE ---
DATE: 10/11/2018 INTERVAL HISTORY: The patient reports slight improvement in her symptoms. Still with pretty significant nonproductive cough and wheezing. Patient comfortable at rest now, but still with dyspnea on exertion. No new complaints. No acute events overnight. REVIEW OF SYSTEMS: Twelve-point review of systems negative except as per interval history. LABORATORY DATA: WBC 14.6, hemoglobin 10.8, hematocrit 34.5, platelets 337,000. Basic metabolic panel unremarkable aside from glucose of 167. VITALS: T-max 98.5 degrees, pulse 90, respirations 19, blood pressure 187/71, O2 saturation 97% on room air. PHYSICAL EXAMINATION: General: No acute distress. Vitals: As above. HEENT: Normocephalic, atraumatic. Moist mucous membranes. No cervical adenopathy. Cardiovascular: Regular rate and rhythm. No murmurs noted. Pulmonary: Reasonable air entry but was still with diffuse expiratory wheezing throughout, which is significantly improved from admission but only slightly improved from yesterday. Abdomen: Soft, nontender, nondistended. Bowel sounds positive. Extremities: Peripheral pulses intact. No clubbing, cyanosis, or edema. Neurologic: Cranial nerves grossly intact. No focal deficits identified. Psychiatric: Normal mood and affect. Awake, alert and oriented x3. Skin: No new rashes or lesions identified. ASSESSMENT AND PLAN: 1. Asthma exacerbation. The patient still with significant wheezing and some dyspnea on exertion. No further respiratory distress, but we will continue IV steroids and nebs for 1 more day. If she continues to improve, then hopeful for discharge tomorrow. 2. Hyperglycemia likely steroid induced. Monitor but no need for further workup unless it becomes severe. 3. Anxiety, doing fairly well off of Klonopin. Advised patient to follow up with her PCP. 4. Anemia mild, likely anemia of chronic disease. 5. Leukocytosis likely steroid induced, but will monitor off of antibiotics. Chest x-ray clear x2, and patient has been afebrile.
[2018-10-11] MEDS: AMBIEN PO PRN (21:50)
[2018-10-12] MEDS: SOLU-MEDROL IV SCH ×2 (03:32→09:33)
[2018-10-12] MEDS: ALBUTEROL NEB INH SCH (06:30)
[2018-10-12] MEDS: PRILOSEC PO SCH (06:39)
[2018-10-12 08:24] VITALS: BP 158/88
[2018-10-12] MEDS: LEVAQUIN 750 MG/D5W 750 MG/150 ML IVPB IV SCH (09:33)
[2018-10-12] MEDS: SINGULAIR PO SCH (09:33)
[2018-10-12] MEDS: NS 1,000 ML IV SCH (09:33)
--- NOTE | 2018-10-12 21:46 | DISCHARGE SUMMARY ---
ADMISSION DATE: 10/09/2018 DISCHARGE DATE: 10/12/2018 DIAGNOSES: 1. Asthma exacerbation. 2. Hyperglycemia likely steroid induced. 3. Anxiety history of. 4. Anemia of chronic disease. 5. Leukocytosis most likely secondary to steroid. DIAGNOSTICS: 10/09/2018 chest x-ray lingular atelectasis. MICROBIOLOGY: Blood cultures x2 revealed no growth after 48 hours. HOSPITAL COURSE: Ms Kirkland presented to the emergency room complaining of shortness of breath and wheezing despite her home medications. She was found to be in an asthma exacerbation for which she received albuterol treatments as well as Pulmicort and steroids to taper. Thankfully she has done well. She is back to her baseline. She does have a history of anxiety and on admission she did tell the nurses that she was taking Klonopin 0.5 mg 3 times a day. On further talking with the patient, Dr. Zurita was informed that the patient has not had Klonopin since March. Therefore this was discontinued in the hospital. Dr Zurita did have a long discussion with the patient advising her to discuss further Klonopin with her primary care physician as we would not be giving or prescribing this on discharge, to which she voiced understanding. She has done well off of the Klonopin with her anxiety while in the hospital. DISCHARGE PHYSICAL EXAMINATION: Vital signs: Blood pressure is 158/88 with heart rate of 80, respirations 18, temperature is 98.1 degrees oral with O2 saturations that are 94 to 96 percent. Cardiovascular: Regular rate and rhythm. S1, S2 appreciated. She has no lower extremity edema. Calves are nontender bilateral. Peripheral pulses palpable x4 extremities. Pulmonary: She does have some scattered wheezes although this is much improved from admission. Chest rises, fall symmetrically. She has no increased work of breathing. Gastrointestinal: Abdomen soft, nontender, nondistended with bowel sounds in all 4 quadrants. : No CVA or suprapubic tenderness. Neurologic: She is alert, oriented x3. Skin: Is warm and dry. DISCHARGE MEDICATIONS: 1. Singulair 10 mg p.o. daily. 2. Albuterol inhaler 2 puffs q.4 hours p.r.n. wheezing. 3. Nasonex 1 spray in each nostril daily. 4. Ambien 5 mg p.o. at bedtime. 5. Breo Ellipta as directed. FOLLOWUP: 1.Dr. Townsend her primary care provider. Myas been instructed to call Sunday and schedule an appointment next 1 to 2 weeks. She has been instructed to call to be seen sooner, return to the emergency room for any syncope, dizziness, chest pain, palpitations, increasing shortness of breath, productive cough, temperature greater than 101 any nausea, vomiting, diarrhea, constipation, black or bloody vomitus or stools, hematuria, dysuria, frequency urgency or for any concerns that she may have. She is being discharged home in stable condition with family members. TIME SPENT: Greater than 30 minutes. Dictated by JORDY Sims for Travis Zurita MD cc: JORDY Sims Agree with the above. the following is my own face to face assessment. patient no longer wheezing and good air entry on exam. discharging home on steroid taper in addition to the above listed meds. follow up with pcp. SHARDA
== END 2018-10-12 11:14 | disposition home or self-care (01) | DRG 191 ==
LOC: ED 05:41 → EDIPHOLD 10:45 → 3S 14:46 → 3N 10-10 15:32
PROVIDERS: ATTEND Internal Medicine

== ENCOUNTER 2019-01-09 11:56 | Inpatient (IN) ==
[2019-01-09] MEDS ORDERED: DUONEB (A & A) INH ONE ×2 (12:13→14:29)
[2019-01-09] MEDS ORDERED: SOLU-MEDROL IV ONE (12:13)
[2019-01-09] MEDS ORDERED: ROCEPHIN 1 GM in NS 50 ML IV ONE (12:13)
[2019-01-09] MEDS ORDERED: NS 1,000 ML IV ONE ×2 (12:13→16:53)
[2019-01-09] MEDS ORDERED: PULMICORT INH ONE (12:14)
[2019-01-09 12:43] LABS: BLOOD TYPE ARTERIAL; HCO3-(ACT) 22.5 mmoll (20.0-26.0); METHB 1.2 % (0.0-1.5); O2(CT) 16.1 mL/dL (15.0-23.0); O2HB 94.5 % (95.0-99.0); PCO2(98.6) 33 mmHg (35-45); PO2(98.6) 81 mmHg (60-100); SAMPLE BLOOD; SAO2 97.3 % (95.0-100.0); THB 12.1 g/dL (11.5-17.4); pH(98.6) 7.41 (7.35-7.45)
[2019-01-09 12:47] LABS: ALLEN TEST YES; MODALITY ROOM AIR
[2019-01-09 13:02] LABS: BASO# 0.07 X1000 (0.0-0.2); BASO% 0.7 % (0.0-0.8); EOS# 0.68 X1000 (0.0-0.7); EOS% 7.2 % (0.0-10.0); HEMATOCRIT 38.4 % (37.0-47.0); HEMOGLOBIN 11.8 g/dL (12.0-16.0); IMM GRAN# 0.03 X1000 (0.0-0.04); IMM GRAN% 0.3 % (0.0-0.5); LYMPH# 1.55 X1000 (1.2-3.4); LYMPH% 16.3 % (20.5-51.1); MCH 24.4 PG (27-31); MCHC 30.7 g/dL (33-37); MCV 79.5 FL (81-99); MONO# 0.63 X1000 (0.11-0.59); MONO% 6.6 % (1.7-9.3); MPV 10.8 FL (7.4-10.4); NEUT# 6.53 X1000 (1.4-6.5); NEUT% 68.9 % (42.2-75.2); PLT 332 X1000 (130-400); RBC 4.83 XMIL (4.2-5.4); RDW 17.5 % (11.5-14.5); WBC 9.49 X1000 (4.8-10.8)
--- NOTE | 2019-01-09 13:40 | Diag Imaging Result Doc PS360 ---
EXAM: CHEST-PORTABLE 01/09/2019 HISTORY: cough TECHNIQUE: AP portable at 1308 COMMENT: The heart size and pulmonary vascularity are within normal limits. There is no evidence of acute pulmonary disease. Compared to 12/24/2018 there has been no significant change. IMPRESSION: No acute disease. Electronically signed by Hussain Mancia 01/09/2019 1:37 PM
[2019-01-09 13:50] LABS: ESTIMATED GFR > 60
[2019-01-09 13:51] LABS: AGAP 11; ALBUMIN 3.8 g/dL (3.5-5.0); ALKALINE PHOSPHATASE 66 U/L (32-104); BUN 11 mg/dL (8-22); CALCIUM 10.3 mg/dL (8.8-10.2); CHLORIDE 109 mmol/L (98-107); COSMO 269; CREATININE 0.7 mg/dL (0.5-0.9); GLUCOSE 96 mg/dL (70-104); GOT 16 U/L (10-30); GPT 10 U/L (10-36); POTASSIUM 4.2 mmol/L (3.5-5.1); SODIUM 135 mmol/L (136-145); TCO2 15 mmol/L (25-35)
--- NOTE | 2019-01-09 14:34 | PROVIDER DOCUMENTATION ---
This chart was entered by Katerine Frausto Scribe, acting as scribe for Rosalina Webb MD. HPI-Respiratory General - General Chief Complaint: Asthma Attack Stated Complaint: SOB Time Seen by Provider: 01/09/19 12:12 Source: patient Allergies/Adverse Reactions: Patient Allergies Allergy/AdvReac Type Severity Reaction Status Date / Time Sulfa (Sulfonamide Allergy Severe ANAPHYLAXIS Verified 12/20/18 13:46 Antibiotics) egg Allergy ANAPHYLAXIS Verified 12/20/18 13:46 nut - unspecified Allergy ANAPHYLAXIS Verified 12/20/18 13:46 milk AdvReac Unknown Verified 12/20/18 13:46 tree nut AdvReac Unknown Verified 12/20/18 13:46 Home Medications: Home Medication List Medication Instructions Recorded Confirmed Last Taken Type Montelukast [Singulair] 10 mg PO DAILY #30 tab 05/21/18 12/24/18 Unknown Rx Albuterol [Albuterol Neb] 2.5 mg INH Q4H PRN PRN #30 neb 07/27/18 12/24/18 12/24/18 Rx Fluticasone/Vilant 100/25 INH 2 puff INH DAILY 10/09/18 12/24/18 12/24/18 History [Breo Ellipta 100/25 Mcg INH] Albuterol Sulfate [Proair Hfa] 8.5 gm INHALATION BID 12/20/18 12/24/18 12/24/18 History Zolpidem [Ambien] 5 mg PO QHS PRN 12/24/18 12/24/18 Unknown History - History of Present Illness-Resp Nature of Presenting Problem: Patient is a 43 year old female who presents with shortness of breath and cough. States symptoms started last night. Report taking multiple Albuterol breathing treatments last night and today. History of asthma. Quality of Pain: reports: none Severity in ED: reports: mild Onset/Duration: reports: last night Timing: reports: still present Cough Quality/Degree: reports: moderate Episode Frequency: frequent episodes Current Respiratory Medication Therapy: Initiated see nurses note Associated Symptoms: reports: cough, shortness of breath Similar Symptoms Previously?: Yes Recently seen or treated by another doctor?: No Review of Systems - Adult - REVIEW OF SYSTEMS - ADULT ROS:: limited per condition Constitutional: reports: no symptoms reported Eyes: reports: no symptoms reported Ears, Nose, Mouth & Throat: reports: no symptoms reported Cardiovascular: reports: no symptoms reported Respiratory: reports: see HPI, cough, shortness of breath. denies: wheezing Gastrointestinal: reports: no symptoms reported Genitourinary: reports: no symptoms reported Musculoskeletal: reports: no symptoms reported Integumentary: reports: no symptoms reported Neurological: reports: no symptoms reported Psychiatric: reports: no symptoms reported Endocrine: reports: no symptoms reported Hematologic/Lymphatic: reports: no symptoms reported Allergic/Immunologic: reports: no symptoms reported All Other Systems: Reviewed and Negative Past History - Adult - PAST MEDICAL HISTORY-ADULT Review of Records: reports: Old Records Reviewed, Nursing Assessment Review, Medications Reviewed, Social history reviewed & non-contributory. Major Childhood Illnesses: reports: denies history Cardiovascular: reports: denies history Respiratory: reports: asthma Gastrointestinal: reports: denies history Obstetrical/Gynecological: reports: denies history Genitourinary: reports: denies history Musculoskeletal: reports: denies history Neurological: reports: denies history Psychiatric: reports: anxiety, depression Endocrine/Immune: reports: denies history Other Conditions: reports: denies history - PRIOR SURGERIES/PROCEDURES Surgical/Procedure History: reports: , orthopedic (extremity) (R elbow Sx), breast (reduction) - PRIOR HOSPITALIZATIONS Prior Hospitalizations: reports: none - IMMUNIZATION STATUS Childhood Immunizations: See Nurse Assessment Flu Vaccine: See Nurse Assessment - FAMILY HISTORY Family History: reviewed, not pertinent - SOCIAL HISTORY Smoking: cigarettes (former) Substance Use: denies Physical Exam-General - PHYSICAL EXAM-ADULT Initial Vital Signs Reviewed: Yes - CONSTITUTIONAL General Appearance: alert, mild distress, obese. negative: lethargic - HEAD, EARS, NOSE, MOUTH & THROAT HENMT: normocephalic/atraumatic, moist mucous membranes. negative: angioedema - RESPIRATORY Respiratory: chest non-tender, wheezing (bilateral). negative: accessory muscle use, retractions - CARDIOVASCULAR Cardiovascular: normal peripheral pulses, tachycardia. negative: systolic murmur - GASTROINTESTINAL (ABDOMEN) Abdominal Exam: normal bowel sounds, non tender, soft. negative: distended, guarding - MUSCULOSKELETAL Extremity: normal gait, normal inspection. negative: swelling - SKIN Integumentary: normal color, normal turgor, warm/dry. negative: cyanosis, pallor - NEUROLOGIC Neurologic: grossly normal. negative: aphasia, facial droop - PSYCHIATRIC Psych/Mental Status: normal mood/affect, oriented x 3. negative: anxious Progress - PLAN OF CARE/RESULTS Progress/Plan/Lab Results: Vital Signs - 8 hr 01/09/19 12:00 01/09/19 12:59 Temperature 97.4 F L Pulse Rate 107 H 105 H Respiratory Rate 24 26 H Blood Pressure 155/66 O2 Sat by Pulse Oximetry 89 L Laboratory Results - last 24 hr 01/09/19 01/09/19 01/09/19 12:25 12:30 12:30 WBC 9.49 RBC 4.83 Hgb 11.8 L Hct 38.4 MCV 79.5 L MCH 24.4 L MCHC 30.7 L RDW Std Deviation 17.5 H Plt Count 332 MPV 10.8 H Immature Gran % (Auto) 0.3 Neut % (Auto) 68.9 Lymph % (Auto) 16.3 L Bingham % (Auto) 6.6 Eos % (Auto) 7.2 Baso % (Auto) 0.7 Immature Gran # (Auto) 0.03 Neut # (Auto) 6.53 H Lymph # (Auto) 1.55 Bingham # (Auto) 0.63 H Eos # (Auto) 0.68 Baso # (Auto) 0.07 Specimen Type ARTERIAL Sample Site R RADIAL pH 7.41 pCO2 33 L pO2 81 HCO3 22.5 Base Excess -3.0 Oxyhemoglobin 94.5 L ABG O2 Sat (Calculated) 16.1 ABG O2 Saturation 97.3 ABG Carboxyhemoglobin 1.70 ABG Methemoglobin 1.2 Santos Test YES A-a O2 Difference 27.0 Total Hemoglobin 12.1 Lactate 0.90 Blood Gas Modality ROOM AIR FiO2 % 21.0 Sodium 135 L Potassium 4.2 Chloride 109 H Carbon Dioxide 15 L Anion Gap 11 BUN 11 Creatinine 0.7 Estimated GFR/1.73 m2 > 60 BUN/Creatinine Ratio 16 Glucose 96 Calculated Osmolality 269 Calcium 10.3 H Total Bilirubin 0.30 AST 16 ALT 10 Alkaline Phosphatase 66 Yhu-P-Vvhipladrao Pept Total Protein 7.0 Albumin 3.8 Globulin 3.0 Albumin/Globulin Ratio 1.0 01/09/19 12:30 WBC RBC Hgb Hct MCV MCH MCHC RDW Std Deviation Plt Count MPV Immature Gran % (Auto) Neut % (Auto) Lymph % (Auto) Bingham % (Auto) Eos % (Auto) Baso % (Auto) Immature Gran # (Auto) Neut # (Auto) Lymph # (Auto) Bingham # (Auto) Eos # (Auto) Baso # (Auto) Specimen Type Sample Site pH pCO2 pO2 HCO3 Base Excess Oxyhemoglobin ABG O2 Sat (Calculated) ABG O2 Saturation ABG Carboxyhemoglobin ABG Methemoglobin Santos Test A-a O2 Difference Total Hemoglobin Lactate Blood Gas Modality FiO2 % Sodium Potassium Chloride Carbon Dioxide Anion Gap BUN Creatinine Estimated GFR/1.73 m2 BUN/Creatinine Ratio Glucose Calculated Osmolality Calcium Total Bilirubin AST ALT Alkaline Phosphatase Bpg-I-Fwzhabaabmc Pept 19 Total Protein Albumin Globulin Albumin/Globulin Ratio Orders Category Date Time Status Saline Loc NOW Care 01/09/19 12:13 Active CHEST-PORTABLE [RAD] Stat Exams 01/09/19 12:13 Completed ABG [RESP] Routine Lab 01/09/19 12:25 Completed BLOOD CULTURE [BLDCUL] Stat Lab 01/09/19 13:10 Ordered CBC WITH DIFF [HEME] Stat Lab 01/09/19 12:30 Completed COMPREHENSIVE METABOLIC PANEL [CHEM] Stat Lab 01/09/19 12:30 Completed PRO B-NATRIURETIC PEPTIDE Stat Lab 01/09/19 12:30 Completed SPUTUM CULTURE WITH GRAM STAIN [RM] Routine Lab 01/09/19 13:10 Ordered 0.9% Sodium Chloride Inj [Ns] 1,000 ml Med 01/09/19 12:13 Discontinued IV 999 mls/hr Albuterol 2.5MG/Ipratrop 0.5MG [Duoneb (A & A)] Med 01/09/19 12:13 Discontinued 3 ml INH NOW ONE Albuterol 2.5MG/Ipratrop 0.5MG [Duoneb (A & A)] Med 01/09/19 14:29 Discontinued 3 ml INH NOW ONE Budesonide [Pulmicort] Med 01/09/19 12:14 Discontinued 0.5 mg INH NOW ONE CefTRIAXONE [Rocephin] 1 gm Med 01/09/19 12:13 Discontinued 0.9% Sodium Chloride Inj [Ns] 50 ml IV NOW Methylprednisolone Sod Succ [Solu-Medrol] Med 01/09/19 12:13 Discontinued 125 mg IV NOW ONE Aerosol Treatments Routine Oth 01/09/19 12:14 Completed Aerosol Treatments Routine Oth 01/09/19 12:14 Completed Aerosol Treatments Routine Oth 01/09/19 14:29 Active Aerosol Treatments Stat Oth 01/09/19 12:14 Completed Aerosol Treatments Stat [facility] 01/09/19 12:14 Completed Aerosol Treatments [facility] 01/09/19 14:29 Active Pulse Oximetry [facility] 01/09/19 12:13 Active Result Diagrams: 01/09/19 12:30 01/09/19 12:30 - XRAY 1 XRAY Study: Chest Impression: See EMR Report ( EXAM: CHEST-PORTABLE 01/09/2019 HISTORY: cough TECHNIQUE: AP portable at 1308 COMMENT: The heart size and pulmonary vascularity are within normal limits. There is no evidence of acute pulmonary disease. Compared to 12/24/2018 there has been no significant change. IMPRESSION: No acute disease. Electronically signed by Hussain Mancia 01/09/2019 1:37 PM 01/09/19 1337 Interpreting Physician: Hussain Mancia MD Dictated Date/Time: 01/09/197 cc: Rosalina Webb MD; None,PCP) - CONSULTS/PCP/HOSPITALIST Notification #1 *Consult/PCP/Hospitalist*: Dr. Dietrich Time Discussed: 14:32 Reason/Comments: Dr. Webb consulted with Dr. Dietrich about patient Consult Disposition: Admit Departure - Departure Date of Disposition Decision: 01/09/19 Time of Disposition Decision: 14:33 DIAGNOSIS: COPD (chronic obstructive pulmonary disease) Qualifiers: COPD type: COPD with acute exacerbation Qualified Code(s): J44.1 - Chronic obstructive pulmonary disease with (acute) exacerbation Disposition: ADMITTED INPATIENT 09 Certified Medical Emergency: Emergent Condition: Good Referrals and Follow-Ups: None,PCP [Primary Care Provider] - - Critical Care Note This patient required my direct & personal management of CC.: No Attestation - Physician/ NIGEL Attestation Patient care was provided by Advanced Practice Provider:: No The physician spent face to face time with patient:: Yes Advanced Practice Provider documentation review:: Supervising physician onsite and consulted in the evaluation and care of this patient. The physician did have a face to face encounter with the patient. This chart was documented by the indicated scribe, (Katerine Frausto Scribe) and accurately reflects the services I performed and decisions made by me, Rosalina Webb MD, as attested by the provider's signature.
[2019-01-09] MEDS ORDERED: TYLENOL PO PRN (16:53)
[2019-01-09] MEDS ORDERED: ZOFRAN IV PRN (16:53)
[2019-01-09] MEDS: DUONEB (A & A) INH SCH ×3 (17:13→22:39)
[2019-01-09] MEDS ORDERED: PNEUMOVAX 23 IM ONE (17:48)
[2019-01-09] MEDS ORDERED: FLU VACCINE IM ONE (17:48)
[2019-01-09] MEDS: DUONEB (A & A) INH PRN (17:53)
--- NOTE | 2019-01-09 19:43 | PROGRESS NOTE ---
DATE: 01/09/2019 Patient is short of breath, wheezing. She has acute asthma exacerbation. Will continue treatment. Continue antibiotic. She has diffuse end-expiratory wheezes with x-ray, work of breathing. Continue breathing treatments, steroids, antibiotics, and we will follow closely. Disposition pending her clinical status. This is a [id number] encounter note with Brianne Escalante. cc: Ole Dietrich MD
[2019-01-09] MEDS: PULMICORT INH SCH (20:11)
--- NOTE | 2019-01-09 20:42 | HISTORY AND PHYSICAL ---
PRIMARY CARE PHYSICIAN: Celestino Townsend MD CHIEF COMPLAINT: Shortness of breath and cough that began last night and progressively worsened. HISTORY OF PRESENTING ILLNESS: This is a 43-year-old female who presents to [facility] ER with complaints of shortness of breath and a nonproductive cough that began last night. Stated that she had taken multiple albuterol treatments last night and today with no real improvement in her symptoms. She is a former smoker, but has been quit for about 13 years. It is noted she was in the hospital back in 10/09/2018, through 10/12/2018 with an acute asthma exacerbation. Workup today showed O2 saturation on room air of 89%. Her chest x- ray showed no acute disease. Laboratory data was fairly unremarkable. She had audible wheezing and rhonchi noted. She is sitting up in bed and answers questions appropriately and will be admitted for further evaluation and treatment. PAST MEDICAL HISTORY: Asthma, COPD, bronchitis, seasonal allergies. PAST SURGICAL HISTORY: Of a left arm surgery, breast reduction, section. FAMILY HISTORY: Mother has COPD and CHF. SOCIAL HISTORY: She currently lives with her mom. She is a former smoker, but quit 13 years ago. Denies any alcohol or illicit drug use. ALLERGIES: Sulfa, eggs, nut, milk and tree nut. HOME MEDICATIONS: A current list will need to be obtained, reconciled, reviewed and restarted as appropriate. We will place an order for nursing to update and confirm home medications. LABORATORY DATA: Showed a white blood cell count of 9.49, hemoglobin 11.8, hematocrit 38.4, platelets of 332,000. ABG showed a pH of 7.41, pCO2 of 33, PO2 81, bicarb 22.5, and this was on room air. Sodium 135, potassium 4.2 chloride 109, CO2 of 15, BUN of 11, creatinine 0.7, glucose 96. Plasma lactate of 1.0. Chest x-ray showed no acute disease. REVIEW OF SYSTEMS: She denied any fever, chills, blurred vision, dizziness, chest pain, coughing. She was short of breath. Denied any abdominal pain, constipation, diarrhea, burning or hurting with urination. PHYSICAL EXAMINATION: VITAL SIGNS: On arrival, she had a temperature of 97.4 degrees, pulse 107, respirations 24, blood pressure 155/66, saturating 89% on room air. GENERAL: This is a 43-year-old female who is sitting up in the bed and answers questions appropriately. HEENT: Normocephalic, atraumatic. Normal ENT inspection. Oropharynx and nares are clear. EYES: Pupils are equal, round, reactive to light and accommodation. Extraocular movements are intact. NECK: Normal inspection normal range of motion. LUNGS: With crackles and wheezing throughout the entire posterior lung rosenbaum. Has accessory muscle use. O2 via nasal cannula currently in use. ABDOMEN: Soft, nontender, nondistended. Bowel sounds are present x4 quadrants. MUSCULOSKELETAL: She has 5/5 strength x4 extremities. NEUROLOGICAL: The cranial nerves 2-12 appear grossly intact. ASSESSMENT: 1. An acute asthma exacerbation, severe. 2. Hypoxemia. OUR PLAN: She will be admitted to the medical unit at [place], placed on telemetry, O2 per protocol, peak flows, update and confirm home medications. Place on a healthy heart diet. Solu- Medrol 80 mg IV q.6 and wean as she improves, normal saline at 100 mL an hour, Rocephin 1 gram IV q.24. We will recheck a CBC and BMP in the a.m. and further orders after seen by attending. 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 This was her 2nd admission in a 3 month time for an asthma exacerbation. Dictated by JORDY Gale for Ole Dietrich MD cc: JORDY Gale MD Hiteshri S. Bhavsar, MD
[2019-01-09] MEDS: SOLU-MEDROL IV SCH ×2 (22:02→22:03)
[2019-01-09] MEDS: AMBIEN PO PRN (22:03)
[2019-01-10] MEDS: DUONEB (A & A) INH SCH ×6 (02:30→22:38)
[2019-01-10] MEDS: SOLU-MEDROL IV SCH ×4 (03:59→22:05)
[2019-01-10] MEDS: PRILOSEC PO SCH (06:15)
[2019-01-10] MEDS: LOVENOX SUBQ SCH (06:16)
[2019-01-10] MEDS: DUONEB (A & A) INH PRN ×2 (06:36→17:19)
[2019-01-10 07:09] LABS: BASO# 0.01 X1000 (0.0-0.2); BASO% 0.1 % (0.0-0.8); HEMATOCRIT 35.8 % (37.0-47.0); IMM GRAN# 0.01 X1000 (0.0-0.04); IMM GRAN% 0.1 % (0.0-0.5); LYMPH# 0.69 X1000 (1.2-3.4); LYMPH% 8.2 % (20.5-51.1); MCH 24.3 PG (27-31); MCHC 30.7 g/dL (33-37); MONO# 0.12 X1000 (0.11-0.59); MONO% 1.4 % (1.7-9.3); MPV 10.8 FL (7.4-10.4); NEUT# 7.54 X1000 (1.4-6.5); NEUT% 90.2 % (42.2-75.2); PLT 309 X1000 (130-400); RBC 4.53 XMIL (4.2-5.4); RDW 17.1 % (11.5-14.5); WBC 8.37 X1000 (4.8-10.8)
[2019-01-10 07:28] LABS: AGAP 11; BUN 10 mg/dL (8-22); CALCIUM 9.4 mg/dL (8.8-10.2); CHLORIDE 111 mmol/L (98-107); COSMO 282; CREATININE 0.6 mg/dL (0.5-0.9); ESTIMATED GFR > 60; GLUCOSE 154 mg/dL (70-104); MAGNESIUM 1.9 mg/dL (1.5-2.7); POTASSIUM 4.1 mmol/L (3.5-5.1); SODIUM 140 mmol/L (136-145); TCO2 18 mmol/L (25-35)
[2019-01-10] MEDS: PULMICORT INH SCH ×2 (08:28→22:38)
[2019-01-10] MEDS: BREO ELLIPTA 100/25 MCG INH INH SCH (08:36)
[2019-01-10] MEDS: SINGULAIR PO SCH (08:40)
[2019-01-10 09:07] LABS: LYMPHS 7 % (21-51); MONO 1 % (1-9); SEGS 92 % (42-75)
[2019-01-10 09:08] LABS: ANISOCYTOSIS 1+
[2019-01-10] MEDS: ROCEPHIN 1 GM in NS 50 ML IV SCH (14:36)
[2019-01-10] MEDS: KLONOPIN PO PRN ×2 (17:36→21:06)
--- NOTE | 2019-01-10 19:41 | PROGRESS NOTE ---
DATE: 01/10/2019 SUBJECTIVE: Patient has no major complaints. OBJECTIVE: Vital signs: Blood pressure is 163/90 heart rate 80 respiratory rate 18, temperature 98.6 degrees, 99% on 2 L. Cardiovascular: Regular rate and rhythm. Pulmonary: Bilateral breath sounds, clear to auscultation. GI: Soft, nontender, nondistended. Bowel sounds are positive. LABORATORY DATA: Basic was normal. CBC was normal. PROBLEM LIST: Acute asthma exacerbation. We will continue breathing treatments, steroids. She is on antibiotics. I do not think her x-rays have revealed any pneumonia. She is requesting something for anxiety. I am going to wean her steroids a bit, and we will see how she does. I anticipate discharge in the next 1 to 2 days. cc: Ole Dietrich MD MTDD
[2019-01-10] MEDS: ROBITUSSIN-AC PO PRN (21:06)
[2019-01-10] MEDS: AMBIEN PO PRN (21:06)
[2019-01-11] MEDS: ROBITUSSIN-AC PO PRN ×4 (01:12→22:17)
[2019-01-11] MEDS: DUONEB (A & A) INH SCH ×6 (02:40→22:57)
[2019-01-11] MEDS: KLONOPIN PO PRN ×3 (03:11→22:17)
[2019-01-11] MEDS: LOVENOX SUBQ SCH (05:02)
[2019-01-11] MEDS: PRILOSEC PO SCH (06:10)
[2019-01-11] MEDS: SOLU-MEDROL IV SCH ×3 (06:10→22:12)
[2019-01-11] MEDS: PULMICORT INH SCH ×2 (08:06→19:51)
[2019-01-11] MEDS: SINGULAIR PO SCH (08:52)
[2019-01-11] MEDS: BREO ELLIPTA 100/25 MCG INH INH SCH (10:41)
[2019-01-11] MEDS: ROCEPHIN 1 GM in NS 50 ML IV SCH (14:39)
--- NOTE | 2019-01-11 18:22 | PROGRESS NOTE ---
DATE: 01/11/2019 SUBJECTIVE: She is breathing a bit better. No major complaints. OBJECTIVE: Blood pressure is 139/75, heart rate is 106, respiratory rate of 20, temperature 98.7 degrees, 95% on 2 L.Cardiovascular: Regular rate and rhythm. Pulmonary: Bilateral breath sounds. Clear to auscultation. Gastrointestinal: Soft, nontender, nondistended. Bowel sounds are positive. LABORATORY DATA: Unremarkable. ASSESSMENT AND PLAN: Acute asthma exacerbation. She seems to be doing better. We will wean steroids and follow. No pneumonia has been noted. DISPOSITION: I anticipate discharge probably in the next 24 hours, if she stabilizes. cc: lOe Dietrich MD
[2019-01-11] MEDS: DUONEB (A & A) INH PRN (19:51)
[2019-01-11] MEDS: AMBIEN PO PRN (22:17)
[2019-01-12] MEDS: DUONEB (A & A) INH SCH ×6 (02:37→23:06)
[2019-01-12] MEDS: LOVENOX SUBQ SCH (05:22)
[2019-01-12] MEDS: KLONOPIN PO PRN ×3 (05:26→22:04)
[2019-01-12] MEDS: PRILOSEC PO SCH (06:10)
[2019-01-12] MEDS: SOLU-MEDROL IV SCH ×3 (06:10→22:04)
[2019-01-12] MEDS: BREO ELLIPTA 100/25 MCG INH INH SCH (08:05)
[2019-01-12] MEDS: PULMICORT INH SCH ×2 (08:06→20:21)
[2019-01-12] MEDS: SINGULAIR PO SCH (08:20)
[2019-01-12] MEDS: ROBITUSSIN-AC PO PRN ×2 (08:20→22:04)
[2019-01-12] MEDS: ROCEPHIN 1 GM in NS 50 ML IV SCH (14:36)
[2019-01-12] MEDS ORDERED: SODIUM CHLORIDE 0.9% INJ ONE (15:46)
[2019-01-12] MEDS ORDERED: PHENERGAN IV ONE (15:46)
--- NOTE | 2019-01-12 16:10 | PROGRESS NOTE ---
DATE: 01/12/2019 SUBJECTIVE: The patient is stable. She has no major complaints. OBJECTIVE: Blood pressure is 118/89, heart rate 114, respiratory rate 20, temperature 97.7 degrees, 97% on 2 L.Cardiovascular: Regular rate and rhythm. Pulmonary: Bilateral breath sounds clear to auscultation. She is still wheezing and having a lot of coughing. GI: Soft, nontender, nondistended. LABORATORY DATA: I do not think she has had any major changes. We have not done anything in a couple days because we really have not been tracking anything. PROBLEMS: Acute asthma exacerbation. She is feeling worse today. I am going to go back up on her steroids. Will repeat her chest x-ray and I am going to check labs tomorrow and will see how she does. I am suspicious to some degree this may be related, she had a bowel movement yesterday but will see how she is doing. She is requesting some Phenergan. cc: Ole Dietrich MD
[2019-01-12] MEDS: AMBIEN PO PRN (22:04)
[2019-01-13] MEDS: DUONEB (A & A) INH SCH ×3 (03:15→11:53)
[2019-01-13] MEDS: LOVENOX SUBQ SCH (05:21)
[2019-01-13] MEDS: KLONOPIN PO PRN ×2 (05:27→11:25)
[2019-01-13] MEDS: DUONEB (A & A) INH PRN (05:57)
[2019-01-13 06:11] LABS: AGAP 11; BUN 19 mg/dL (8-22); CALCIUM 8.9 mg/dL (8.8-10.2); CHLORIDE 110 mmol/L (98-107); COSMO 290; CREATININE 0.7 mg/dL (0.5-0.9); ESTIMATED GFR > 60; GLUCOSE 180 mg/dL (70-104); POTASSIUM 3.7 mmol/L (3.5-5.1); SODIUM 142 mmol/L (136-145); TCO2 22 mmol/L (25-35)
[2019-01-13 06:14] LABS: HEMATOCRIT 35.8 % (37.0-47.0); HEMOGLOBIN 10.7 g/dL (12.0-16.0); IMM GRAN# 0.04 X1000 (0.0-0.04); IMM GRAN% 0.4 % (0.0-0.5); LYMPH# 0.74 X1000 (1.2-3.4); MCH 23.7 PG (27-31); MCHC 29.9 g/dL (33-37); MCV 79.2 FL (81-99); MONO# 0.56 X1000 (0.11-0.59); MONO% 6.1 % (1.7-9.3); MPV 10.6 FL (7.4-10.4); NEUT% 85.5 % (42.2-75.2); PLT 344 X1000 (130-400); RBC 4.52 XMIL (4.2-5.4); RDW 16.8 % (11.5-14.5); WBC 9.24 X1000 (4.8-10.8)
[2019-01-13] MEDS: SOLU-MEDROL IV SCH (06:18)
[2019-01-13] MEDS: PRILOSEC PO SCH (06:18)
--- NOTE | 2019-01-13 06:57 | Diag Imaging Result Doc PS360 ---
CHEST-2 VIEWS - 01/13/2019 INDICATION: hypoxia COMPARISON: 01/09/2019 FINDINGS: Lung volumes are much lower. There is some faint infiltrate or atelectasis in the left lower lobe. No pneumothorax or pleural effusion. Heart size is normal. IMPRESSION: Lower lung volumes. Nonspecific infiltrate or atelectasis in the left lower lobe. Electronically signed by Morris Patel 01/13/2019 6:54 AM
[2019-01-13] MEDS: PULMICORT INH SCH (07:42)
[2019-01-13] MEDS: BREO ELLIPTA 100/25 MCG INH INH SCH (07:42)
[2019-01-13 07:57] LABS: EOS 1 % (1-10); LYMPHS 8 % (21-51); MONO 4 % (1-9); SEGS 87 % (42-75)
[2019-01-13 08:09] VITALS: BP 142/73
[2019-01-13] MEDS: SINGULAIR PO SCH (09:45)
[2019-01-13] MEDS: ROBITUSSIN-AC PO PRN (11:26)
--- NOTE | 2019-01-14 07:52 | DISCHARGE SUMMARY ---
ADMISSION DATE: 01/09/2019 DISCHARGE DATE: 01/13/2019 DISCHARGE DIAGNOSES: 1. Acute chronic obstructive pulmonary disease exacerbation. 2. Pneumonia, left lower lobe infiltrate. 3. Anxiety disorder. PROCEDURES: None. HOSPITAL COURSE: Briefly, this is a 43-year-old female with history of shortness of breath and cough. She was admitted for pneumonia. She was placed on steroids. She clinically improved within about 24 hours but she slowly improved. However, on the , she had a little bit of a setback and more wheezing, did not feel good. I bumped up her steroids. We got repeat laboratory data which was really unremarkable, white count 9, and her chest x-ray showed some left lower lobe atelectasis versus early infiltrate. Clinically, she was felt stable for discharge. She was very involved, engaged to go home. DISCHARGE MEDICATIONS: Ambien 5 p.r.n., ProAir, albuterol neb q.4, Breo Ellipta 2 puffs daily, Omnicef 300 p.o. b.i.d. for 7 days, prednisone taper, Singulair 10 daily. DISCHARGE CONDITION: Stable. TIME SPENT: A 32 minute discharge. cc: MD Celestino Vicente MD
== END 2019-01-13 14:38 | disposition home or self-care (01) | DRG 190 ==
LOC: P.ED 11:56 → P.EDIPHOLD 15:45
PROVIDERS: ATTEND Internal Medicine

== ENCOUNTER 2019-02-07 17:25 | Inpatient (IN) ==
[2019-02-07] MEDS ORDERED: SOLU-MEDROL IV ONE (17:26)
[2019-02-07] MEDS ORDERED: DUONEB (A & A) INH ONE ×2 (17:31→21:50)
--- NOTE | 2019-02-07 17:31 | PROVIDER DOCUMENTATION ---
HPI-Respiratory General - General Stated Complaint: sob Time Seen by Provider: 02/07/19 17:25 Source: patient Allergies/Adverse Reactions: Patient Allergies Allergy/AdvReac Type Severity Reaction Status Date / Time Sulfa (Sulfonamide Allergy Severe ANAPHYLAXIS Verified 02/07/19 17:29 Antibiotics) egg Allergy ANAPHYLAXIS Verified 02/07/19 17:29 nut - unspecified Allergy ANAPHYLAXIS Verified 02/07/19 17:29 milk AdvReac Unknown Verified 02/07/19 17:29 tree nut AdvReac Unknown Verified 02/07/19 17:29 Home Medications: Home Medication List Medication Instructions Recorded Confirmed Last Taken Type Montelukast [Singulair] 10 mg PO DAILY #30 tab 05/21/18 02/07/19 Unknown Rx Albuterol [Albuterol Neb] 2.5 mg INH Q4H PRN PRN #30 neb 07/27/18 02/07/19 12/24/18 Rx Albuterol Sulfate [Proair Hfa] 8.5 gm INHALATION Q4-6H PRN PRN 12/20/18 02/07/19 12/24/18 History - History of Present Illness-Resp Nature of Presenting Problem: 44 YO PRESENTS WITH C/O SOB, CHEST TIGHTNESS THAT BEGAN YESTERDAY AND HAS GOTTEN WORSE, HAS TAKEN HOME NEBS WITHOUT RELIEF. DENIES FEVER, CHILLS, N/V/D. BRONWYN HAS RSV. Quality of Pain: reports: tightness Severity in ED: reports: moderate Onset/Duration: reports: 24 hours ago Timing: reports: still present Cough Quality/Degree: reports: moderate, dry cough Episode Frequency: occasional episodes Current Respiratory Medication Therapy: Not Used A/A nebulizer Modifying Factors: improves with: nothing Associated Symptoms: reports: cough, short of breath Similar Symptoms Previously?: Yes Recently seen or treated by another doctor?: No Review of Systems - Adult - REVIEW OF SYSTEMS - ADULT Constitutional: reports: no symptoms reported. denies: see HPI, chills, fever, fatique, night sweats, weight gain, weight loss, other Eyes: reports: no symptoms reported. denies: see HPI, discharge, dry eyes, decreased vision, blurred vision, double vision, eye pain, redness, other Ears, Nose, Mouth & Throat: reports: no symptoms reported. denies: see HPI, ear discharge, ear pain, hearing loss, tinnitus, epistaxis, sinus problem, nose pain, loose teeth, mouth/dental pain, mouth swelling, hoarseness, throat pain, throat swelling, other Cardiovascular: reports: chest pain (TIGHTNESS, NONRADIATING). denies: no symptoms reported, see HPI, edema, heart murmur, irregular heart rate, orthopnea, palpitations, poor circulation, PND, syncope, other Respiratory: reports: see HPI, cough, shortness of breath, wheezing. denies: no symptoms reported, chronic cough, dyspnea on exertion, excessive sputum production, hemoptysis, pleurisy, other Gastrointestinal: reports: no symptoms reported. denies: see HPI, abdominal pain, hematemesis, constipation, diarrhea, difficulty swallowing, frequent heartburn, nausea, poor appetite, rectal bleeding, vomiting, other Genitourinary: reports: no symptoms reported. denies: see HPI, dysuria, discharge, frequency, flank pain, frequent UTI's, hematuria, hesitency, incontinence, urinary retention, urgency, other Musculoskeletal: reports: no symptoms reported. denies: see HPI, bone pain, back pain, frequent leg cramps, joint pain, joint swelling, muscle aches, muscle weakness, neck pain, other Integumentary: reports: no symptoms reported. denies: see HPI, hives, hair loss, itching, mole changes, nail changes, rash, skin sores/ulcer, skin thickening, other Neurological: reports: no symptoms reported. denies: see HPI, ataxia, dizziness/vertigo, headache/migraines, loss of balance, numbness, paresthesia, seizure, slurred speech, syncope, tremors, other Psychiatric: reports: no symptoms reported. denies: see HPI, anxiety, anti- depressant use, alcohol/drug dependence, depression, emotional problems, insomnia, panic attacks, suicidal thoughts, other Endocrine: reports: no symptoms reported. denies: see HPI, change in skin pigment, excessive sweating, goiter, cold intolerance, heat intolerance, increased hunger, increased thirst, polyuria, other Hematologic/Lymphatic: reports: no symptoms reported. denies: see HPI, blood clots, easy bruising, low blood count, lymphedema, prolonged bleeding, swollen lymph nodes, transfusions, other Allergic/Immunologic: reports: no symptoms reported. denies: see HPI, allergic reactions, allergic rhinitis, asthma, eczema, food allergy, frequent infections, hay fever, hives, positive PPD, urticaria, other Past History - Adult - PAST MEDICAL HISTORY-ADULT Review of Records: reports: Nursing Assessment Review, Social history reviewed & non-contributory. Major Childhood Illnesses: reports: denies history Cardiovascular: reports: HTN Respiratory: reports: asthma Gastrointestinal: reports: denies history Obstetrical/Gynecological: reports: denies history Genitourinary: reports: denies history Musculoskeletal: reports: denies history Neurological: reports: denies history Psychiatric: reports: anxiety, depression Endocrine/Immune: reports: denies history Other Conditions: reports: denies history - PRIOR SURGERIES/PROCEDURES Surgical/Procedure History: reports: , orthopedic (extremity) (R elbow Sx), breast (reduction) - PRIOR HOSPITALIZATIONS Prior Hospitalizations: reports: none - IMMUNIZATION STATUS Childhood Immunizations: See Nurse Assessment Flu Vaccine: See Nurse Assessment - FAMILY HISTORY Family History: reviewed, not pertinent Physical Exam-General - PHYSICAL EXAM-ADULT Initial Vital Signs Reviewed: Yes - CONSTITUTIONAL General Appearance: alert, mild distress - EYES Eyes: PERRL/EOMI, pink conjunctivae - HEAD, EARS, NOSE, MOUTH & THROAT HENMT: normocephalic/atraumatic, moist mucous membranes, normal ENT inspection - NECK Neck: non-tender, full range of motion, supple - RESPIRATORY Respiratory: chest non-tender, respiratory distress, rhonchi, wheezing - CARDIOVASCULAR Cardiovascular: normal peripheral pulses, no edema, no gallop, no JVD, no murmur - GASTROINTESTINAL (ABDOMEN) Abdominal Exam: normal bowel sounds, non tender, soft, no organomegaly, no pulsatile mass - LYMPHATIC Lymphatic: no adenopathy - MUSCULOSKELETAL Back Exam: normal inspection, no CVA tenderness, no vertebral tenderness Extremity: normal range of motion, non-tender, normal gait, normal inspection, no pedal edema, no calf tenderness Peripheral Pulses: radial (R): 2+, radial (L): 2+ - SKIN Integumentary: normal color, normal turgor, warm/dry - NEUROLOGIC Neurologic: grossly normal - PSYCHIATRIC Psych/Mental Status: normal mood/affect, oriented x 3 - HEART Score HEART Score: History: Moderately Suspicious HEART Score: ECG: Non-Specific Repolarization Disturbance/LBBB/PM HEART Score: Age: 45-65 Years HEART Score: Risk Factors for Atherosclerotic Disease: 1 or 2 Risk Factors HEART Score: Troponin: < or = Normal Limit Total HEART Score:: 4 Progress - PLAN OF CARE/RESULTS Progress/Plan/Lab Results: Vital Signs - 8 hr 02/07/19 17:24 02/07/19 17:44 Temperature 98.2 F Pulse Rate 118 H 107 H Respiratory Rate 22 20 Blood Pressure 153/119 O2 Sat by Pulse Oximetry 95 97 Laboratory Results - last 24 hr 02/07/19 02/07/19 02/07/19 17:22 17:47 17:47 WBC RBC Hgb Hct MCV MCH MCHC RDW Std Deviation Plt Count MPV Immature Gran % (Auto) Neut % (Auto) Lymph % (Auto) [place] % (Auto) Eos % (Auto) Baso % (Auto) Immature Gran # (Auto) Neut # (Auto) Lymph # (Auto) [place] # (Auto) Eos # (Auto) Baso # (Auto) PT INR PTT (Actin FS) Specimen Type ARTERIAL Sample Site L RADIAL pH 7.40 pCO2 42 pO2 82 HCO3 25.6 Base Excess 1.0 Oxyhemoglobin 94.1 L ABG O2 Sat (Calculated) 16.1 ABG O2 Saturation 97.3 ABG Carboxyhemoglobin 2.20 ABG Methemoglobin 1.1 Santos Test YES A-a O2 Difference 65.0 Total Hemoglobin 12.1 Lactate 0.80 Liter Flow 2.0 Blood Gas Modality CANNULA FiO2 % 28.0 Sodium Potassium Chloride Carbon Dioxide Anion Gap BUN Creatinine Estimated GFR/1.73 m2 BUN/Creatinine Ratio Glucose Calculated Osmolality Calcium Total Bilirubin AST ALT Alkaline Phosphatase Creatine Kinase Troponin T Total Protein Albumin Globulin Albumin/Globulin Ratio Plasma Lactate Urine Source Urine Color Urine Turbidity Urine pH Ur Specific [place] Urine Protein Ur Glucose (Stick) Ur Ketones (Stick) Urine Blood Urine Nitrite Urine Bilirubin Urobilinogen Dipstick Urine Leukocytes Urine WBC (Auto) Urine RBC (Auto) U Epithel Cells (Auto) Urine Bacteria (Auto) Influenza A (Rapid) NEGATIVE Influenza B (Rapid) NEGATIVE RSV Rapid NEGATIVE 02/07/19 02/07/19 02/07/19 17:57 17:57 17:57 WBC 9.77 RBC 4.62 Hgb 11.4 L Hct 37.0 MCV 80.1 L MCH 24.7 L MCHC 30.8 L RDW Std Deviation 16.7 H Plt Count 434 H MPV 9.8 Immature Gran % (Auto) 0.3 Neut % (Auto) 53.5 Lymph % (Auto) 21.0 [place] % (Auto) 7.7 Eos % (Auto) 16.5 H Baso % (Auto) 1.0 H Immature Gran # (Auto) 0.03 Neut # (Auto) 5.23 Lymph # (Auto) 2.05 [place] # (Auto) 0.75 H Eos # (Auto) 1.61 H Baso # (Auto) 0.10 PT INR PTT (Actin FS) Specimen Type Sample Site pH pCO2 pO2 HCO3 Base Excess Oxyhemoglobin ABG O2 Sat (Calculated) ABG O2 Saturation ABG Carboxyhemoglobin ABG Methemoglobin Santos Test A-a O2 Difference Total Hemoglobin Lactate Liter Flow Blood Gas Modality FiO2 % Sodium Potassium Chloride Carbon Dioxide Anion Gap BUN Creatinine Estimated GFR/1.73 m2 BUN/Creatinine Ratio Glucose Calculated Osmolality Calcium Total Bilirubin AST ALT Alkaline Phosphatase Creatine Kinase 166 Troponin T < 0.010 Total Protein Albumin Globulin Albumin/Globulin Ratio Plasma Lactate Urine Source Urine Color Urine Turbidity Urine pH Ur Specific [place] Urine Protein Ur Glucose (Stick) Ur Ketones (Stick) Urine Blood Urine Nitrite Urine Bilirubin Urobilinogen Dipstick Urine Leukocytes Urine WBC (Auto) Urine RBC (Auto) U Epithel Cells (Auto) Urine Bacteria (Auto) Influenza A (Rapid) Influenza B (Rapid) RSV Rapid 02/07/19 02/07/19 02/07/19 17:57 17:57 18:59 WBC RBC Hgb Hct MCV MCH MCHC RDW Std Deviation Plt Count MPV Immature Gran % (Auto) Neut % (Auto) Lymph % (Auto) [place] % (Auto) Eos % (Auto) Baso % (Auto) Immature Gran # (Auto) Neut # (Auto) Lymph # (Auto) [place] # (Auto) Eos # (Auto) Baso # (Auto) PT 12.7 INR 0.91 PTT (Actin FS) 30.3 Specimen Type Sample Site pH pCO2 pO2 HCO3 Base Excess Oxyhemoglobin ABG O2 Sat (Calculated) ABG O2 Saturation ABG Carboxyhemoglobin ABG Methemoglobin Santos Test A-a O2 Difference Total Hemoglobin Lactate Liter Flow Blood Gas Modality FiO2 % Sodium 142 Potassium 4.0 Chloride 107 Carbon Dioxide 22 L Anion Gap 13 BUN 12 Creatinine 0.7 Estimated GFR/1.73 m2 > 60 BUN/Creatinine Ratio 17 Glucose 123 H Calculated Osmolality 284 Calcium 9.0 Total Bilirubin 0.20 AST 17 ALT 12 Alkaline Phosphatase 77 Creatine Kinase Troponin T Total Protein 6.9 Albumin 4.3 Globulin 3.0 Albumin/Globulin Ratio 2.0 Plasma Lactate 1.0 Urine Source Urine Color Urine Turbidity Urine pH Ur Specific [place] Urine Protein Ur Glucose (Stick) Ur Ketones (Stick) Urine Blood Urine Nitrite Urine Bilirubin Urobilinogen Dipstick Urine Leukocytes Urine WBC (Auto) Urine RBC (Auto) U Epithel Cells (Auto) Urine Bacteria (Auto) Influenza A (Rapid) Influenza B (Rapid) RSV Rapid 02/07/19 20:31 WBC RBC Hgb Hct MCV MCH MCHC RDW Std Deviation Plt Count MPV Immature Gran % (Auto) Neut % (Auto) Lymph % (Auto) [place] % (Auto) Eos % (Auto) Baso % (Auto) Immature Gran # (Auto) Neut # (Auto) Lymph # (Auto) [place] # (Auto) Eos # (Auto) Baso # (Auto) PT INR PTT (Actin FS) Specimen Type Sample Site pH pCO2 pO2 HCO3 Base Excess Oxyhemoglobin ABG O2 Sat (Calculated) ABG O2 Saturation ABG Carboxyhemoglobin ABG Methemoglobin Santos Test A-a O2 Difference Total Hemoglobin Lactate Liter Flow Blood Gas Modality FiO2 % Sodium Potassium Chloride Carbon Dioxide Anion Gap BUN Creatinine Estimated GFR/1.73 m2 BUN/Creatinine Ratio Glucose Calculated Osmolality Calcium Total Bilirubin AST ALT Alkaline Phosphatase Creatine Kinase Troponin T Total Protein Albumin Globulin Albumin/Globulin Ratio Plasma Lactate Urine Source CLEAN CATCH Urine Color YELLOW Urine Turbidity CLEAR Urine pH 6.5 Ur Specific [place] 1.023 Urine Protein NEGATIVE Ur Glucose (Stick) NEGATIVE Ur Ketones (Stick) NEGATIVE Urine Blood NEGATIVE Urine Nitrite NEGATIVE Urine Bilirubin NEGATIVE Urobilinogen Dipstick NORMAL Urine Leukocytes NEGATIVE Urine WBC (Auto) <10 Urine RBC (Auto) <10 U Epithel Cells (Auto) <10 Urine Bacteria (Auto) NEGATIVE Influenza A (Rapid) Influenza B (Rapid) RSV Rapid Orders Category Date Time Status Cardiac Monitoring DIRECTED Care 02/07/19 18:55 Active Notify MD of + Sepsis Screen NOW Care 02/07/19 18:55 Active Notify Physician As Ordered Care 02/07/19 18:55 Active cxr [CHEST-2 VIEWS] [RAD] Stat Exams 02/07/19 17:26 Completed ABG [RESP] Routine Lab 02/07/19 17:22 Completed BLOOD CULTURE [BLDCUL] Stat Lab 02/07/19 18:03 Ordered CBC WITH ELECTRONIC DIFF [HEME] Stat Lab 02/07/19 17:57 Completed CK PROFILE [SP CHEM] Stat Lab 02/07/19 17:57 Completed COMPREHENSIVE METABOLIC PANEL [CHEM] Stat Lab 02/07/19 17:[address] Stat Lab 02/07/19 17:47 Completed LACTATE, PLASMA [CHEM] Lab 02/07/19 22:00 Uncollected LACTATE, PLASMA [CHEM] Lab 02/08/19 01:00 Uncollected LACTATE, PLASMA [CHEM] Q3H Lab 02/07/19 18:59 Completed PROTIME WITH INR [COAG] Stat Lab 02/07/19 17:57 Completed PTT [COAG] Stat Lab 02/07/19 17:57 Completed RESP SYNCYTIAL VIRUS PL Stat Lab 02/07/19 17:47 Completed TROPONIN T Stat Lab 02/07/19 17:57 Completed URINALYSIS W/POSS RFLX CULT [URINALYSIS] Stat Lab 02/07/19 20:31 Completed Albuterol 2.5MG/Ipratrop 0.5MG [Duoneb (A & A)] Med 02/07/19 17:31 Discontinued 3 ml INH NOW ONE Azithromycin 500 mg/Ns [Zithromax 500 mg/Ns] Med 02/07/19 19:08 Discontinued 500 mg in 250 ml IV NOW Benzonatate [Tessalon] Med 02/07/19 19:43 Discontinued 100 mg PO NOW ONE CefTRIAXONE [Rocephin] 1 gm Med 02/07/19 19:09 Discontinued 0.9% Sodium Chloride Inj [Ns] 50 ml IV NOW Methylprednisolone Sod Succ [Solu-Medrol] Med 02/07/19 17:26 Discontinued 125 mg IV NOW ONE Aerosol Treatments Routine Oth 02/07/19 17:31 Completed Aerosol Treatments Stat Oth 02/07/19 17:31 Completed Oxygen Device Stat Oth 02/07/19 18:55 Completed EKG [EKG] Stat Ther 02/07/19 17:34 Draft Result Diagrams: 02/07/19 17:57 02/07/19 17:57 - EKG 1 Time of EKG reading by physician:: 17:32 EKG Read and Signed by:: Jensen Higgins EKG Interpretation (*Must complete 3 of following elements*): Abnormal Rate: 114 Rhythm: [facility] [place]: normal QRS: normal [place] Interval: normal ST Wave: non-specific ST changes Prior EKG Comparison: changes noted - XRAY 1 XRAY Study: Chest Impression: See EMR Report (EXAM: CHEST-2 VIEWS - 02/07/2019 HISTORY: SOB, COUGH TECHNIQUE: Chest two views COMPARISON: 01/13/2019 FINDINGS: Inspiration is deeper compared to prior. Heart size is within normal limits. There is some peribronchial cuffing which may relate to bronchitis. There is an apparent small infiltrate at the lateral left base. The remainder of the lungs appear clear. There is no pleural effusion or pneumothorax identified. IMPRESSION: Apparent bronchitis, with small bronchopneumonia at lateral left base. Electronically signed by Riley Diaz 02/07/2019 6:46 PM 02/07/191845 Interpreting Physician: Riley Diaz MD Dictated Date/Time: 02/07/191842 cc: Negra Christina; None,PCP) - CONSULTS/PCP/HOSPITALIST Notification #1 *Consult/PCP/Hospitalist*: DR. ZULETA Time Discussed: 21:26 Consult Disposition: Admit Departure - Departure Date of Disposition Decision: 02/07/19 Time of Disposition Decision: 21:26 DIAGNOSIS: Bronchitis, COPD (chronic obstructive pulmonary disease), Bronchopneumonia Disposition: ADMITTED INPATIENT 09 Certified Medical Emergency: Emergent Condition: Stable Referrals and Follow-Ups: None,PCP [Primary Care Provider] - - Critical Care Note This patient required my direct & personal management of CC.: No Attestation - Physician/ NIGEL Attestation Patient care was provided by Advanced Practice Provider:: Yes Advanced Practice Provider:: Negra Christina Advanced Practice Provider documentation review:: The Mid-level provider documentation, treatment plan and medical decision making was reviewed by the physician who agrees with all treatment and medical decision making by the [facility]. The physician spent face to face time with patient:: No Advanced Practice Provider documentation review:: Supervising physician onsite and consulted in the evaluation and care of this patient. The physician did not have a face to face encounter with the patient.
[2019-02-07 17:46] LABS: BLOOD TYPE ARTERIAL; HCO3-(ACT) 25.6 mmoll (20.0-26.0); METHB 1.1 % (0.0-1.5); O2(CT) 16.1 mL/dL (15.0-23.0); O2HB 94.1 % (95.0-99.0); PCO2(98.6) 42 mmHg (35-45); PO2(98.6) 82 mmHg (60-100); SAMPLE BLOOD; SAO2 97.3 % (95.0-100.0); THB 12.1 g/dL (11.5-17.4)
[2019-02-07 17:49] LABS: ALLEN TEST YES; MODALITY CANNULA
--- NOTE | 2019-02-07 17:51 | EKG Report ---
Test Performed on : 02/07/2019 5:31:22 PM Test Reason : CP Blood Pressure : / mmHG Vent. Rate : 114 BPM Atrial Rate : 114 BPM P-R Int : 136 ms QRS Dur : 082 ms QT Int : 346 ms P-R-T Axes : 069 053 051 degrees QTc Int : 476 ms Sinus tachycardia. Possible Anterior infarct (cited on or before 25-JUL-2015) Abnormal ECG When compared with ECG of 24-DEC-2018 17:13, (Unconfirmed) QRS axis shifted right Unconfirmed Result
[2019-02-07 18:06] LABS: EOS# 1.61 X1000 (0.0-0.7); EOS% 16.5 % (0.0-10.0); HEMOGLOBIN 11.4 g/dL (12.0-16.0); IMM GRAN# 0.03 X1000 (0.0-0.04); IMM GRAN% 0.3 % (0.0-0.5); LYMPH# 2.05 X1000 (1.2-3.4); MCH 24.7 PG (27-31); MCHC 30.8 g/dL (33-37); MCV 80.1 FL (81-99); MONO# 0.75 X1000 (0.11-0.59); MONO% 7.7 % (1.7-9.3); MPV 9.8 FL (7.4-10.4); NEUT# 5.23 X1000 (1.4-6.5); NEUT% 53.5 % (42.2-75.2); PLT 434 X1000 (130-400); RBC 4.62 XMIL (4.2-5.4); RDW 16.7 % (11.5-14.5); WBC 9.77 X1000 (4.8-10.8)
[2019-02-07 18:22] LABS: AGAP 13; ALBUMIN 4.3 g/dL (3.5-5.0); ALKALINE PHOSPHATASE 77 U/L (32-104); BUN 12 mg/dL (8-22); CHLORIDE 107 mmol/L (98-107); COSMO 284; CREATININE 0.7 mg/dL (0.5-0.9); ESTIMATED GFR > 60; GLUCOSE 123 mg/dL (70-104); GOT 17 U/L (10-30); GPT 12 U/L (10-36); SODIUM 142 mmol/L (136-145); TCO2 22 mmol/L (25-35); TOTAL PROTEIN 6.9 g/dL (6.3-8.3)
[2019-02-07 18:24] LABS: INFLUENZA A NEGATIVE (NEGATIVE); INFLUENZA B NEGATIVE (NEGATIVE)
--- NOTE | 2019-02-07 18:48 | Diag Imaging Result Doc PS360 ---
EXAM: CHEST-2 VIEWS - 02/07/2019 HISTORY: SOB, COUGH TECHNIQUE: Chest two views COMPARISON: 01/13/2019 FINDINGS: Inspiration is deeper compared to prior. Heart size is within normal limits. There is some peribronchial cuffing which may relate to bronchitis. There is an apparent small infiltrate at the lateral left base. The remainder of the lungs appear clear. There is no pleural effusion or pneumothorax identified. IMPRESSION: Apparent bronchitis, with small bronchopneumonia at lateral left base. Electronically signed by Riley Diaz 02/07/2019 6:46 PM
[2019-02-07] MEDS ORDERED: ZITHROMAX 500 MG/NS 500 MG/250 ML IVPB IV ONE (19:08)
[2019-02-07] MEDS ORDERED: ROCEPHIN 1 GM in NS 50 ML IV ONE (19:09)
[2019-02-07 19:17] LABS: INR 0.91; PROTIME 12.7 Seconds (11.0-16.0)
[2019-02-07 19:18] LABS: PTT 30.3 Seconds (22.3-41.8)
[2019-02-07] MEDS ORDERED: TESSALON PO ONE (19:43)
[2019-02-07 20:42] LABS: URINE SOURCE CLEAN CATCH
[2019-02-07 20:46] LABS: BILIRUBIN URINE NEGATIVE (NEGATIVE); BLOOD URINE NEGATIVE (NEGATIVE); COLOR YELLOW; GLUCOSE URINE NEGATIVE (NEGATIVE); KETONE URINE NEGATIVE (NEGATIVE); LEUKOCYTES URINE NEGATIVE (NEGATIVE); NITRITE URINE NEGATIVE (NEGATIVE); PH URINE 6.5; PROTEIN URINE NEGATIVE (NEGATIVE); SP GRAVITY URINE 1.023; TURBIDITY URINE CLEAR (CLEAR); UROBILINOGEN URINE NORMAL (NORMAL)
[2019-02-07 20:48] LABS: UR EPITHELIAL CELLS <10 /HPF (<10); URINE BACTERIA NEGATIVE /HPF; URINE RBC <10 /HPF (<10); URINE WBC <10 /HPF (<10)
[2019-02-07] MEDS: DUONEB (A & A) INH SCH (23:51)
[2019-02-08] MEDS: DUONEB (A & A) INH SCH ×6 (02:44→23:25)
[2019-02-08] MEDS ORDERED: TORADOL IV ONE (04:04)
[2019-02-08] MEDS: SOLU-MEDROL IV SCH ×2 (07:53→18:23)
[2019-02-08] MEDS: NS 1,000 ML IV SCH (11:10)
[2019-02-08] MEDS: MAXIPIME 2 GM in NS 100 ML IV SCH ×2 (11:10→21:34)
[2019-02-08] MEDS: TESSALON PO PRN ×2 (11:28→18:33)
--- NOTE | 2019-02-08 18:32 | HISTORY AND PHYSICAL ---
PRIMARY CARE PHYSICIAN: Dr. Townsend. CHIEF COMPLAINT: Shortness of breath, chest tightness despite taking her nebulizers also has a nonproductive cough. HISTORY OF PRESENTING ILLNESS: This is a 44-year-old female who presents to [facility] ER with complaints of shortness of breath, nonproductive cough, chest tightness that began yesterday and progressively worsened. States she had been taking her nebulizers but really did not see any improvement, also was taking her inhaled steroid daily without any change in her symptoms as well. Workup in the emergency room showed a chest x-ray with apparent bronchitis and a small bronchopneumonia at the lateral left base, she is noted to have wheezing throughout entire posterior lung rosenbaum. She is currently sitting up in bedside chair and is saturating 97% on room air so she has been admitted for further evaluation and treatment. PAST MEDICAL HISTORY: Hypertension, asthma, depression. PAST SURGICAL HISTORY: , right elbow surgery and a breast reduction. FAMILY HISTORY: Reviewed and noncontributory. SOCIAL HISTORY: She currently lives with family. Denies any tobacco, alcohol or illicit drug use. She does state that she lives with her mom and takes care of her and her mom is a very heavy chain smoker so she is certainly exposed to secondhand smoke. ALLERGIES: Sulfa, egg, nut, milk and tree nut. HOME MEDICATIONS: We will hold her albuterol nebs q.4 hours and ProAir inhalation q.4-6 hours p.r.n., will continue her Singulair 10 mg p.o. daily. LABORATORY DATA: Showed a white blood cell count of 9.77, hemoglobin 11.4, hematocrit 37, platelets 434,000, PT and INR of 12.7 and 0.91. ABG with a pH of 7.40, pCO2 of 42, PO2 82, bicarb 25.6 and this was on 2 L via nasal cannula. Sodium 142, potassium 4, chloride 107, CO2 22, BUN of 12, creatinine 0.7 glucose 123. Cardiac enzyme was negative, plasma lactate of 1 on arrival, 3 hours later it did go up to 2.4. Urinalysis was negative. Influenza A and B were negative. RSV was negative and that was done because her granddaughter was recently diagnosed with RSV. Chest x-ray showed apparent bronchitis with small bronchopneumonia at the lateral left base. EKG showed sinus tachycardia at 114 . REVIEW OF SYSTEMS: She denied any fever, chills, blurred vision, dizziness. She had some chest tightness, shortness of breath, nonproductive cough, denied any abdominal pain, constipation, diarrhea, burning or hurting with urination. PHYSICAL EXAMINATION: On arrival she had a temperature of 98.2 degrees, pulse 118, respirations 22, blood pressure 153/119, saturating 95% on 2 L via nasal cannula, blood pressure has come down this morning to 158/81 and is currently saturating 97% on room air. GENERAL: This is a 44-year-old female who is sitting up in the bedside chair answers questions appropriately. HEENT: Normocephalic, atraumatic. Normal ENT inspection. Oropharynx and nares are clear. Pupils are equal, round, reactive to light, accommodation. Extraocular movements are intact. NECK: Normal inspection, normal range of motion. LUNGS: With wheezing throughout entire posterior lung rosenbaum. Equal lung expansion, chest wall movement is noted, nonproductive cough also noted. HEART: Regular rate and rhythm. No murmurs, rubs, or gallops. ABDOMEN: Soft, nontender, nondistended. Bowel sounds are present x4 quadrants. MUSCULOSKELETAL: She had 5/5 strength x4 extremities. NEUROLOGICAL: The cranial nerves 2-12 appear grossly intact. ASSESSMENT: 1. Left lower lobe bronchopneumonia. 2. An acute chronic obstructive pulmonary disease exacerbation. 3. Hypertension. 4. History of asthma. 5. Exposure to secondhand smoke. OUR PLAN: She was admitted to the medical unit placed on healthy heart diet, O2 per protocol. Blood cultures x2 and sputum cultures are pending. She is on DuoNeb q.4 hours routinely and q.2 p.r.n., cefepime 2 g IV q.12, Solu-Medrol 80 mg IV q.12 and will wean as she improves, normal saline at 100 mL an hour. I am going to give her some Tessalon Perles 1 p.o. t.i.d. p.r.n. for her cough. Recheck CBC, BMP in the a.m. and further orders after seen by attending. Dictated by JORDY Gale for Ole Dietrich MD cc: Hiteshri MD Ole Tripp MD
[2019-02-08] MEDS: AMBIEN PO PRN (21:35)
[2019-02-08] MEDS: DUONEB (A & A) INH PRN (22:02)
[2019-02-09] MEDS: DUONEB (A & A) INH PRN ×4 (00:42→20:18)
[2019-02-09] MEDS: NS 1,000 ML IV SCH ×3 (01:58→12:57)
--- NOTE | 2019-02-09 02:31 | HISTORY AND PHYSICAL ---
ADDENDUM: Patient came in with shortness of breath and cough. She says she takes all her maintenance medications, but she started having more productive cough and shortness of breath and she was admitted for COPD exacerbation, recurrent pneumonia. She still has some rhonchi and wheezing. We will place her on cefepime just because of her recent exposure, I mean she has been hospitalized the last couple months every other week, so we will continue to follow. This is a [id number] encounter note with JORDY Gale. cc: Ole Dietrich MD
[2019-02-09] MEDS: DUONEB (A & A) INH SCH ×3 (04:47→10:33)
[2019-02-09] MEDS: SOLU-MEDROL IV SCH ×2 (06:28→18:02)
[2019-02-09 06:33] LABS: AGAP 12; BUN 13 mg/dL (8-22); CALCIUM 8.7 mg/dL (8.8-10.2); CHLORIDE 110 mmol/L (98-107); COSMO 286; CREATININE 0.6 mg/dL (0.5-0.9); ESTIMATED GFR > 60; GLUCOSE 176 mg/dL (70-104); POTASSIUM 4.2 mmol/L (3.5-5.1); SODIUM 141 mmol/L (136-145); TCO2 19 mmol/L (25-35)
[2019-02-09 06:41] LABS: BASO# 0.01 X1000 (0.0-0.2); BASO% 0.1 % (0.0-0.8); HEMOGLOBIN 10.2 g/dL (12.0-16.0); IMM GRAN# 0.05 X1000 (0.0-0.04); IMM GRAN% 0.4 % (0.0-0.5); LYMPH# 1.02 X1000 (1.2-3.4); LYMPH% 9.2 % (20.5-51.1); MCH 24.2 PG (27-31); MCV 80.6 FL (81-99); MONO# 0.54 X1000 (0.11-0.59); MONO% 4.9 % (1.7-9.3); MPV 9.7 FL (7.4-10.4); NEUT# 9.51 X1000 (1.4-6.5); NEUT% 85.4 % (42.2-75.2); PLT 437 X1000 (130-400); RBC 4.22 XMIL (4.2-5.4); RDW 16.5 % (11.5-14.5); WBC 11.13 X1000 (4.8-10.8)
[2019-02-09] MEDS: MAXIPIME 2 GM in NS 100 ML IV SCH ×2 (10:12→22:23)
[2019-02-09] MEDS: SINGULAIR PO SCH (10:12)
[2019-02-09] MEDS: TESSALON PO PRN (10:25)
--- NOTE | 2019-02-09 14:19 | PROGRESS NOTE ---
DATE: 02/09/2019 SUBJECTIVE: She does not feel well today. She says she just has a real bad cough. She does not feel good. She has been walking, but really did not feel any better. OBJECTIVE: Vital signs: Blood pressure is 164/90, heart rate of 102, respiratory rate of 20, temperature of 98 degrees. Cardiovascular: Regular rate and rhythm. Pulmonary: Bilateral breath sounds clear to auscultation. GI: Soft, nontender, nondistended. Bowel sounds were positive. Extremity: No clubbing or cyanosis. Lymphatics: No peripheral edema. Neurological: Nonfocal. LABORATORY DATA: Her white count is 11, hemoglobin and hematocrit 10 and 34, platelets 437,000. Basic was normal. PROBLEM LIST: 1. Acute chronic obstructive pulmonary disease exacerbation. We will continue breathing treatments. I am going to change the Xopenex because of her relative tachycardia. I think I am going to wean her steroids because her bronchospasm seems better. 2. Pneumonia. Continue empiric antibiotics and follow white count. White blood cell count elevation may just be due to steroids. We will continue empiric antibiotics DISPOSITION: Pending her clinical status, but she still may be a couple days away from going home. cc: Ole Dietrich MD
[2019-02-09] MEDS: ROBITUSSIN-AC PO PRN ×2 (14:52→19:55)
[2019-02-09] MEDS: ATROVENT NEB INH SCH ×2 (15:14→22:55)
[2019-02-09] MEDS: XOPENEX NEB INH SCH ×2 (15:15→22:55)
[2019-02-09] MEDS: AMBIEN PO PRN (22:23)
[2019-02-10] MEDS: DUONEB (A & A) INH PRN ×5 (02:15→19:22)
[2019-02-10] MEDS: SOLU-MEDROL IV SCH ×2 (05:18→17:24)
[2019-02-10] MEDS: ROBITUSSIN-AC PO PRN ×5 (05:19→21:40)
[2019-02-10 06:06] LABS: AGAP 10; BUN 14 mg/dL (8-22); CALCIUM 8.8 mg/dL (8.8-10.2); CHLORIDE 105 mmol/L (98-107); COSMO 279; CREATININE 0.6 mg/dL (0.5-0.9); ESTIMATED GFR > 60; GLUCOSE 125 mg/dL (70-104); POTASSIUM 4.1 mmol/L (3.5-5.1); SODIUM 139 mmol/L (136-145); TCO2 24 mmol/L (25-35)
[2019-02-10 06:30] LABS: BASO# 0.01 X1000 (0.0-0.2); BASO% 0.1 % (0.0-0.8); HEMATOCRIT 34.1 % (37.0-47.0); HEMOGLOBIN 10.2 g/dL (12.0-16.0); IMM GRAN# 0.09 X1000 (0.0-0.04); IMM GRAN% 0.8 % (0.0-0.5); LYMPH# 1.37 X1000 (1.2-3.4); LYMPH% 12.7 % (20.5-51.1); MCH 24.1 PG (27-31); MCHC 29.9 g/dL (33-37); MCV 80.6 FL (81-99); MONO# 0.81 X1000 (0.11-0.59); MONO% 7.5 % (1.7-9.3); MPV 10.1 FL (7.4-10.4); NEUT# 8.52 X1000 (1.4-6.5); NEUT% 78.9 % (42.2-75.2); PLT 411 X1000 (130-400); RBC 4.23 XMIL (4.2-5.4); RDW 16.4 % (11.5-14.5)
[2019-02-10] MEDS: NS 1,000 ML IV SCH ×4 (07:24→17:24)
[2019-02-10] MEDS: MAXIPIME 2 GM in NS 100 ML IV SCH ×3 (09:01→21:41)
[2019-02-10] MEDS: SINGULAIR PO SCH (09:01)
[2019-02-10] MEDS: ATROVENT NEB INH SCH ×3 (09:09→21:19)
[2019-02-10] MEDS: XOPENEX NEB INH SCH ×3 (09:09→21:19)
[2019-02-10] MEDS: BREO ELLIPTA 100/25 MCG INH INH SCH (09:09)
[2019-02-10 11:06] LABS: HEMOGLOBIN A1C 5.5 % (4.8-6.0)
--- NOTE | 2019-02-10 16:22 | PROGRESS NOTE ---
DATE: 02/10/2019 SUBJECTIVE: Patient has no major complaints. OBJECTIVE: Blood pressure is 106/69, heart rate 93, respiratory rate 18, temperature was 98.5 degrees, 94% on 2 L.Cardiovascular: Regular rate and rhythm. Pulmonary: Bilateral breath sounds clear to auscultation. She has rhonchi throughout. PROBLEM LIST: 1. Chronic obstructive pulmonary disease exacerbation. She is still having rhonchi and wheezing. I am going to wean her steroids a little bit. We will see how she does. She still does not "feel good," 2. Pneumonia. There was questionable pneumonia on her admission x-ray. We will get a repeat film tomorrow and monitor. DISPOSITION: She is may need to get some treatment a little longer, hopefully not more than a day or 2. cc: Ole Dietrich MD
[2019-02-10] MEDS: RESTORIL PO PRN (21:40)
[2019-02-11] MEDS: DUONEB (A & A) INH PRN ×7 (00:15→19:53)
[2019-02-11] MEDS: SOLU-MEDROL IV SCH ×3 (06:46→21:13)
[2019-02-11] MEDS: LOVENOX SUBQ SCH (06:47)
[2019-02-11] MEDS: ROBITUSSIN-AC PO PRN ×3 (06:47→17:44)
[2019-02-11 07:03] LABS: AGAP 10; BUN 14 mg/dL (8-22); CALCIUM 8.4 mg/dL (8.8-10.2); CHLORIDE 104 mmol/L (98-107); COSMO 282; CREATININE 0.6 mg/dL (0.5-0.9); ESTIMATED GFR > 60; GLUCOSE 128 mg/dL (70-104); POTASSIUM 3.9 mmol/L (3.5-5.1); SODIUM 140 mmol/L (136-145); TCO2 26 mmol/L (25-35)
[2019-02-11 07:12] LABS: HEMOGLOBIN 12.8 g/dL (12.0-16.0); MCH 30.5 PG (27-31); MCV 95.5 FL (81-99); MPV 8.7 FL (7.4-10.4); RBC 4.19 XMIL (4.2-5.4); RDW 12.3 % (11.5-14.5); WBC 9.95 X1000 (4.8-10.8)
--- NOTE | 2019-02-11 07:20 | Diag Imaging Result Doc PS360 ---
EXAM: CHEST-2 VIEWS HISTORY: hypoxia TECHNIQUE: Two views COMPARISON: 02/07/2019 FINDINGS: The lungs are well expanded. The heart is not enlarged. The vessels are not distended. Minimal increased markings in the left base. No pleural effusions. IMPRESSION: Questionable small left basilar infiltrate. No consolidation. Electronically signed by Tariq العراقي 02/11/2019 7:17 AM
[2019-02-11] MEDS: BREO ELLIPTA 100/25 MCG INH INH SCH (07:53)
[2019-02-11] MEDS: SINGULAIR PO SCH (09:39)
[2019-02-11] MEDS: MAXIPIME 2 GM in NS 100 ML IV SCH ×2 (09:39→21:12)
[2019-02-11] MEDS: NS 1,000 ML IV SCH ×2 (09:43→17:16)
[2019-02-11] MEDS: XOPENEX NEB INH SCH ×3 (10:34→22:59)
[2019-02-11] MEDS: ATROVENT NEB INH SCH ×3 (10:34→22:59)
[2019-02-11] MEDS: RESTORIL PO PRN (21:08)
--- NOTE | 2019-02-12 03:00 | PROGRESS NOTE ---
DATE: 02/11/2019 SUBJECTIVE: Patient notes that she is actually feeling a bit worse this morning. Having increased cough, congestion, increased wheezing. Denies any chest pains. OBJECTIVE: Vital Signs: Reviewed. Temp 97 degrees, pulse 95, respiratory rate 18, BP 160/82. General: Patient is in mild current respiratory distress. HEENT: Normocephalic. Neck: Supple. Cardiovascular: Regular rate. Chest: Positive wheezing, appears a little bit worse than yesterday's exam. No crackles. Poor air movement. Abdomen: Soft, nondistended. Extremities: Moves all extremities. Neurologic: No changes. ASSESSMENT: 1. Chronic obstructive pulmonary disease with acute exacerbation. 2. Pneumonia. 3. Hypertension. PLAN: We are actually going to increase her Solu-Medrol today. Continue breathing treatments. She is on day 3 of cefepime and we will follow. cc: Nathan Dhaliwal MD
[2019-02-12] MEDS: NS 1,000 ML IV SCH (04:09)
[2019-02-12] MEDS: DUONEB (A & A) INH PRN ×4 (04:18→19:44)
[2019-02-12] MEDS: SOLU-MEDROL IV SCH ×2 (06:06→17:37)
[2019-02-12] MEDS: LOVENOX SUBQ SCH (06:06)
[2019-02-12] MEDS: BREO ELLIPTA 100/25 MCG INH INH SCH (07:40)
[2019-02-12] MEDS: DOXYCYCLINE PO SCH ×2 (10:25→20:46)
[2019-02-12] MEDS: ROBITUSSIN-AC PO PRN ×2 (10:25→17:37)
[2019-02-12] MEDS: SINGULAIR PO SCH (10:26)
[2019-02-12] MEDS: MAXIPIME 2 GM in NS 100 ML IV SCH ×2 (10:26→21:05)
[2019-02-12] MEDS: ATROVENT NEB INH SCH ×3 (10:49→22:46)
[2019-02-12] MEDS: XOPENEX NEB INH SCH ×3 (10:49→22:46)
--- NOTE | 2019-02-12 19:41 | PROGRESS NOTE ---
DATE: 02/12/2019 SUBJECTIVE: Patient notes she is starting to feel a bit better. She is having less cough and congestion, less shortness of breath, less wheezing. Overall symptoms have improved. PHYSICAL EXAMINATION: Temperature 97 degrees, pulse 95, respiratory 20, BP 166/82.General: Patient is pleasant. She is lying in bed. She is in less distress than she was yesterday. HEENT: Normocephalic. Neck: Supple. Cardiovascular: Regular rate. Chest: Still wheezing, but decreased. But better air movement. Abdomen: Soft, nondistended. Extremities: Moves all extremities. ASSESSMENT: 1. Chronic obstructive pulmonary disease with exacerbation. 2. Pneumonia. 3. Hypertension. PLAN: We are going to decrease her Solu-Medrol to 40 q.12. Continue antibiotics. We will follow. Hopefully, she can continue to improve and will be discharged home tomorrow. cc: Nathan Dhaliwal MD
[2019-02-12] MEDS: RESTORIL PO PRN (20:54)
[2019-02-13] MEDS: LOVENOX SUBQ SCH (06:19)
[2019-02-13] MEDS: SOLU-MEDROL IV SCH (06:19)
[2019-02-13] MEDS: DUONEB (A & A) INH PRN (06:22)
[2019-02-13] MEDS: ROBITUSSIN-AC PO PRN (07:42)
[2019-02-13] MEDS: SINGULAIR PO SCH ×2 (07:43→09:26)
[2019-02-13] MEDS: DOXYCYCLINE PO SCH ×2 (07:43→09:26)
[2019-02-13] MEDS: PRINIVIL PO SCH ×2 (07:44→09:26)
[2019-02-13 08:25] VITALS: BP 153/83
[2019-02-13] MEDS: ATROVENT NEB INH SCH (09:35)
[2019-02-13] MEDS: XOPENEX NEB INH SCH (09:35)
[2019-02-13] MEDS: BREO ELLIPTA 100/25 MCG INH INH SCH (09:40)
[2019-02-13] MEDS: MAXIPIME 2 GM in NS 100 ML IV SCH (09:57)
--- NOTE | 2019-02-14 00:18 | DISCHARGE SUMMARY ---
ADMISSION DATE: 02/07/2019 DISCHARGE DATE: 02/13/2019 DISCHARGE DIAGNOSES: 1. Chronic obstructive pulmonary disease with exacerbation. 2. Acute on chronic hypoxic respiratory failure. 3. Left lower lobe pneumonia, improved. 4. Hypertension. 5. Chronic tobacco exposure. CONSULTATIONS: None. PROCEDURES: None. BRIEF HOSPITAL COURSE: The patient is a 44-year-old female who has a known history of severe asthma and COPD secondary to chronic smoking and smoke exposure. She presented to the hospital with increased cough, congestion, increased work of breathing, was diagnosed with left lower lobe pneumonia, placed on antibiotics. While she was in the hospital, her blood pressure was noted to be elevated. She was placed on lisinopril 5 mg daily, which did seem to improve. She will be discharged home on this. Her hospital course was prolonged secondary to the severity of her illness. Thankfully, on discharge, she is awake, alert, and feeling much better. DISPOSITION: The patient will be discharged home. She will continue Omnicef and doxycycline. We will place her on a Medrol Dosepak. She will continue breathing treatments at home. She will follow up outpatient with treatment facility of choice. We also wrote a prescription for lisinopril 5 mg, as well as Tessalon Perles. The patient will be discharged home as noted above. She has continued to improve. Discussed with her that she needs to avoid all smoke and smoke exposure. TIME SPENT: Greater than 30 minutes was spent in total care. cc: Nathan Dhaliwal MD
== END 2019-02-13 11:17 | disposition home or self-care (01) | DRG 193 ==
LOC: P.ED 17:25 → SUATTDRO 17:30 → P.EDIPHOLD 21:59 → P.MEDSURG 02-08 01:38
PROVIDERS: ATTEND Family Medicine

== ENCOUNTER 2019-05-14 16:32 | Inpatient (IN) ==
[2019-05-14] MEDS ORDERED: DUONEB (A & A) INH ONE ×2 (16:46→16:47)
[2019-05-14] MEDS ORDERED: SOLU-MEDROL IV ONE (16:46)
--- NOTE | 2019-05-14 16:53 | PROVIDER DOCUMENTATION ---
HPI-Respiratory General - General Chief Complaint: Wheezing Stated Complaint: SOB Time Seen by Provider: 05/14/19 16:41 Source: patient Allergies/Adverse Reactions: Patient Allergies Allergy/AdvReac Type Severity Reaction Status Date / Time Sulfa (Sulfonamide Allergy Severe ANAPHYLAXIS Verified 05/14/19 17:30 Antibiotics) egg Allergy ANAPHYLAXIS Verified 05/14/19 17:30 nut - unspecified Allergy ANAPHYLAXIS Verified 05/14/19 17:30 milk AdvReac Unknown Verified 05/14/19 17:30 tree nut AdvReac Unknown Verified 05/14/19 17:30 Home Medications: Home Medication List Medication Instructions Recorded Confirmed Last Taken Type Montelukast [Singulair] 10 mg PO DAILY #30 tab 05/21/18 02/07/19 Unknown Rx Albuterol [Albuterol Neb] 2.5 mg INH Q4H PRN PRN #30 neb 07/27/18 02/07/19 12/24/18 Rx Albuterol Sulfate [Proair Hfa] 8.5 gm INHALATION Q4-6H PRN PRN 12/20/18 02/07/19 12/24/18 History Fluticasone/Vilanterol [Breo 2 puff INH DAILY 02/08/19 02/08/19 Unknown History Ellipta 100-25 Mcg INH] Albuterol 2.5MG/Ipratrop 0.5MG 3 ml INH Q2H PRN PRN #270 neb 02/13/19 Unknown Rx [Duoneb (A & A)] Benzonatate [Tessalon] 100 mg PO TID PRN PRN #90 cap 02/13/19 Unknown Rx CefDINIR [Omnicef] 300 mg PO BID #10 cap 02/13/19 Unknown Rx Doxycycline 100 mg PO BID #10 tab 02/13/19 Unknown Rx Guaifenesin/Codeine [Robitussin-AC] 10 ml PO Q4H PRN PRN #4 oz 02/13/19 Unknown Rx LISINOpril [Prinivil] 5 mg PO DAILY #30 tab 02/13/19 Unknown Rx Methylprednisolone [Medrol Dosepak] 4 mg PO DIRECTED #1 pkg 02/13/19 Unknown Rx Azithromycin 500 mg PO DAILY #3 tab 03/05/19 Unknown Rx Albuterol 2.5MG/Ipratrop 0.5MG 3 ml INH Q4H PRN PRN #100 [facility] 04/05/19 Unknown Rx [Duoneb (A & A)] - History of Present Illness-Resp Nature of Presenting Problem: 44 YOF with PMH of COPD and asthma with frequent admissions, presents with wheezing, congested cough and SOB that began last night with worsening since that time. She denies fever, chills, CP, N/V/D Quality of Pain: reports: none Severity in ED: reports: severe Onset/Duration: reports: last night Timing: reports: still present Cough Quality/Degree: reports: severe, productive cough Episode Frequency: chronic episodes Current Respiratory Medication Therapy: Not Used albuterol/atrovent inhale Modifying Factors: improves with: oxygen. worse with: coughing Associated Symptoms: reports: cough, short of breath, wheezing Similar Symptoms Previously?: Yes Recently seen or treated by another doctor?: No Review of Systems - Adult - REVIEW OF SYSTEMS - ADULT Constitutional: reports: no symptoms reported. denies: see HPI, chills, fever, fatique, night sweats, weight gain, weight loss, other Eyes: reports: no symptoms reported. denies: see HPI, discharge, dry eyes, decreased vision, blurred vision, double vision, eye pain, redness, other Ears, Nose, Mouth & Throat: reports: no symptoms reported. denies: see HPI, ear discharge, ear pain, hearing loss, tinnitus, epistaxis, sinus problem, nose pain, loose teeth, mouth/dental pain, mouth swelling, hoarseness, throat pain, throat swelling, other Cardiovascular: reports: no symptoms reported. denies: see HPI, chest pain, e kd, heart murmur, irregular heart rate, orthopnea, palpitations, poor circulation, PND, syncope, other Respiratory: reports: see HPI, chronic cough, cough, excessive sputum production , shortness of breath, wheezing. denies: no symptoms reported, dyspnea on exertion, hemoptysis, pleurisy, other Gastrointestinal: reports: no symptoms reported. denies: see HPI, abdominal pain, hematemesis, constipation, diarrhea, difficulty swallowing, frequent heartburn, nausea, poor appetite, rectal bleeding, vomiting, other Genitourinary: reports: no symptoms reported. denies: see HPI, dysuria, discharge, frequency, flank pain, frequent UTI's, hematuria, hesitency, incontinence, urinary retention, urgency, other Musculoskeletal: reports: no symptoms reported. denies: see HPI, bone pain, back pain, frequent leg cramps, joint pain, joint swelling, muscle aches, muscle weakness, neck pain, other Integumentary: reports: no symptoms reported. denies: see HPI, hives, hair loss, itching, mole changes, nail changes, rash, skin sores/ulcer, skin thicken ing, other Neurological: reports: no symptoms reported. denies: see HPI, ataxia, dizziness/vertigo, headache/migraines, loss of balance, numbness, paresthesia, seizure, slurred speech, syncope, tremors, other Psychiatric: reports: no symptoms reported. denies: see HPI, anxiety, anti- depressant use, alcohol/drug dependence, depression, emotional problems, insomnia, panic attacks, suicidal thoughts, other Endocrine: reports: no symptoms reported. denies: see HPI, change in skin pigment, excessive sweating, goiter, cold intolerance, heat intolerance, increased hunger, increased thirst, polyuria, other Hematologic/Lymphatic: reports: no symptoms reported. denies: see HPI, blood clots, easy bruising, low blood count, lymphedema, prolonged bleeding, swollen lymph nodes, transfusions, other Allergic/Immunologic: reports: no symptoms reported. denies: see HPI, allergic reactions, allergic rhinitis, asthma, eczema, food allergy, frequent infections, hay fever, hives, positive PPD, urticaria, other Past History - Adult - PAST MEDICAL HISTORY-ADULT Review of Records: reports: Nursing Assessment Review, Social history reviewed & non-contributory. Major Childhood Illnesses: reports: denies history Cardiovascular: reports: HTN Respiratory: reports: asthma, COPD Gastrointestinal: reports: denies history Obstetrical/Gynecological: reports: denies history Genitourinary: reports: denies history Musculoskeletal: reports: denies history Neurological: reports: denies history Psychiatric: reports: anxiety, depression Endocrine/Immune: reports: denies history Other Conditions: reports: denies history - PRIOR SURGERIES/PROCEDURES Surgical/Procedure History: reports: , orthopedic (extremity) (R elbow Sx), breast (reduction) - PRIOR HOSPITALIZATIONS Prior Hospitalizations: reports: none - IMMUNIZATION STATUS Childhood Immunizations: See Nurse Assessment Flu Vaccine: See Nurse Assessment - FAMILY HISTORY Family History: reviewed, not pertinent Physical Exam-General - PHYSICAL EXAM-ADULT Initial Vital Signs Reviewed: Yes - CONSTITUTIONAL General Appearance: alert, moderate distress - EYES Eyes: PERRL/EOMI, pink conjunctivae - HEAD, EARS, NOSE, MOUTH & THROAT HENMT: normocephalic/atraumatic, moist mucous membranes, normal ENT inspection - NECK Neck: non-tender, full range of motion, supple - RESPIRATORY Respiratory: chest non-tender, respiratory distress (mild), crackles, rhonchi, wheezing - CARDIOVASCULAR Cardiovascular: normal peripheral pulses, no edema, no gallop, no JVD, no murmur , tachycardia - GASTROINTESTINAL (ABDOMEN) Abdominal Exam: normal bowel sounds, non tender, soft, no organomegaly, no pulsatile mass - LYMPHATIC Lymphatic: no adenopathy - MUSCULOSKELETAL Back Exam: normal inspection, no CVA tenderness, no vertebral tenderness Extremity: normal range of motion, non-tender, normal gait, normal inspection, no pedal edema, no calf tenderness Peripheral Pulses: radial (R): 2+, radial (L): 2+ - SKIN Integumentary: normal color, normal turgor, warm/dry - NEUROLOGIC Neurologic: grossly normal - PSYCHIATRIC Psych/Mental Status: normal mood/affect, oriented x 3 Progress - PLAN OF CARE/RESULTS Progress/Plan/Lab Results: Vital Signs - 8 hr 05/14/19 16:43 05/14/19 17:03 Temperature 97.8 F Pulse Rate 102 H 106 H Respiratory Rate 24 28 H Blood Pressure 140/65 O2 Sat by Pulse Oximetry 94 L Bedside Urine ED: Urine Bedside Start: 05/14/19 17:07 Freq: Status: Active Protocol: Activity Type Activity Date Activity User E-Sign Co-Sign Detail Recorded Client Recorded Date Recorded By Document 05/14/19 17:08 [id number] 05/14/19 17:08 [id number] 05/14/19 17:08 Point of Care [Bedside Point of Care] -Lot # [id number] - Results Negative -Control Line Visible? Yes Laboratory Results - last 24 hr 05/14/19 05/14/19 05/14/19 17:00 17:00 17:00 WBC 10.58 RBC 4.89 Hgb 11.6 L Hct 37.8 MCV 77.3 L MCH 23.7 L MCHC 30.7 L RDW Std Deviation 16.1 H Plt Count 358 MPV 10.1 Immature Gran % (Auto) 0.3 Neut % (Auto) 67.5 Lymph % (Auto) 14.7 L [place] % (Auto) 6.9 Eos % (Auto) 9.9 Baso % (Auto) 0.7 Immature Gran # (Auto) 0.03 Neut # (Auto) 7.14 H Lymph # (Auto) 1.56 [place] # (Auto) 0.73 H Eos # (Auto) 1.05 H Baso # (Auto) 0.07 Sodium 139 Potassium 4.5 Chloride 102 Carbon Dioxide 23 L Anion Gap 14 BUN 9 Creatinine 0.6 Estimated GFR/1.73 m2 > 60 BUN/Creatinine Ratio 15 Glucose 101 Calculated Osmolality 276 Calcium 9.0 Magnesium 1.8 Total Bilirubin 0.30 AST 17 ALT 12 Alkaline Phosphatase 78 Total Protein 6.9 Albumin 4.0 Globulin 3.0 Albumin/Globulin Ratio 1.0 Plasma Lactate 1.4 Orders Category Date Time Status Saline Loc NOW Care 05/14/19 16:46 Active CHEST-2 VIEWS [RAD] Stat Exams 05/14/19 16:46 Completed BLOOD CULTURE [BLDCUL] Stat Lab 05/14/19 17:06 Ordered CBC WITH ELECTRONIC DIFF [HEME] Stat Lab 05/14/19 17:00 Completed COMPREHENSIVE METABOLIC PANEL [CHEM] Stat Lab 05/14/19 17:[address] Stat Lab 05/14/19 17:25 Received LACTATE, PLASMA [CHEM] Stat Lab 05/14/19 17:00 Completed MAGNESIUM [CHEM] Stat Lab 05/14/19 17:00 Completed TROPONIN T HIGH SENSITIVITY Stat Lab 05/14/19 17:00 Received Albuterol 2.5MG/Ipratrop 0.5MG [Duoneb (A & A)] Med 05/14/19 16:46 Discontinued 3 ml INH NOW ONE Albuterol 2.5MG/Ipratrop 0.5MG [Duoneb (A & A)] Med 05/14/19 16:47 Discontinued 3 ml INH NOW ONE Azithromycin 500 mg/Ns [Zithromax 500 mg/Ns] Med 05/14/19 17:27 Active 500 mg in 250 ml IV NOW CefTRIAXONE [Rocephin] 1 gm Med 05/14/19 17:27 Active 0.9% Sodium Chloride Inj [Ns] 50 ml IV NOW Methylprednisolone Sod Succ [Solu-Medrol] Med 05/14/19 16:46 Discontinued 125 mg IV NOW ONE Aerosol Treatments Routine Oth 05/14/19 16:47 Completed Aerosol Treatments Routine Oth 05/14/19 16:47 Completed Aerosol Treatments Stat Oth 05/14/19 16:47 Completed Aerosol Treatments Stat Oth 05/14/19 16:47 Completed Oxygen Device Stat Oth 05/14/19 16:46 Completed EKG [EKG] Stat Ther 05/14/19 16:47 Draft Result Diagrams: 05/14/19 17:00 05/14/19 17:00 - EKG 1 Time of EKG reading by physician:: 17:35 EKG Read and Signed by:: Rosalina Webb EKG Interpretation (*Must complete 3 of following elements*): Abnormal Rate: 102 Rhythm: ST [place]: normal QRS: other (left anteriot fascicular block) SD Interval: normal ST Wave: non-specific ST changes Prior EKG Comparison: unchanged from prior - XRAY 1 XRAY Study: Chest Impression: See EMR Report (EXAM: CHEST-2 VIEWS - 05/14/2019 HISTORY: SOB TECHNIQUE: Chest two views COMPARISON: 04/05/2019 portable chest FINDINGS: Heart size is normal. The lungs appear clear. There is no pleural effusion or pneumothorax identified. IMPRESSION: No evidence of acute disease. Electronically signed by Riley Diaz 05/14/2019 5:50 PM 05/14/19 1750 Interpreting Physician: Riley Diaz MD Dictated Date/Time: 0 05/14/19 1749 cc: Negra Christina; None,PCP) - CONSULTS/PCP/HOSPITALIST Notification #1 *Consult/PCP/Hospitalist*: Dr. Everett Time Discussed: 17:55 Consult Disposition: Admit Departure - Departure Date of Disposition Decision: 05/14/19 Time of Disposition Decision: 17:55 DIAGNOSIS: COPD (chronic obstructive pulmonary disease), Asthma exacerbation Disposition: ADMITTED INPATIENT 09 Certified Medical Emergency: Emergent Condition: Stable Referrals and Follow-Ups: None,PCP [Primary Care Provider] - - Critical Care Note This patient required my direct & personal management of CC.: No Attestation - Physician/ NIGEL Attestation Patient care was provided by Advanced Practice Provider:: Yes Advanced Practice Provider:: Negra Christina Advanced Practice Provider documentation review:: The Mid-level provider documentation, treatment plan and medical decision making was reviewed by the physician who agrees with all treatment and medical decision making by the MLP. The physician spent face to face time with patient:: No Advanced Practice Provider documentation review:: Supervising physician onsite and consulted in the evaluation and care of this patient. The physician did not have a face to face encounter with the patient.
[2019-05-14] MEDS ORDERED: ZITHROMAX 500 MG/NS 500 MG/250 ML IVPB IV ONE (17:27)
[2019-05-14] MEDS ORDERED: ROCEPHIN 1 GM in NS 50 ML IV ONE (17:27)
--- NOTE | 2019-05-14 17:38 | EKG Report ---
Test Performed on : 05/14/2019 5:33:34 PM Test Reason : SOB Blood Pressure : / mmHG Vent. Rate : 102 BPM Atrial Rate : 102 BPM P-R Int : 128 ms QRS Dur : 090 ms QT Int : 360 ms P-R-T Axes : 040 -58 056 degrees QTc Int : 469 ms Sinus tachycardia. 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
[2019-05-14 17:42] LABS: BASO# 0.07 X1000 (0.0-0.2); BASO% 0.7 % (0.0-0.8); EOS# 1.05 X1000 (0.0-0.7); EOS% 9.9 % (0.0-10.0); HEMATOCRIT 37.8 % (37.0-47.0); HEMOGLOBIN 11.6 g/dL (12.0-16.0); IMM GRAN# 0.03 X1000 (0.0-0.04); IMM GRAN% 0.3 % (0.0-0.5); LYMPH# 1.56 X1000 (1.2-3.4); LYMPH% 14.7 % (20.5-51.1); MCH 23.7 PG (27-31); MCHC 30.7 g/dL (33-37); MCV 77.3 FL (81-99); MONO# 0.73 X1000 (0.11-0.59); MONO% 6.9 % (1.7-9.3); MPV 10.1 FL (7.4-10.4); NEUT# 7.14 X1000 (1.4-6.5); NEUT% 67.5 % (42.2-75.2); PLT 358 X1000 (130-400); RBC 4.89 XMIL (4.2-5.4); RDW 16.1 % (11.5-14.5); WBC 10.58 X1000 (4.8-10.8)
[2019-05-14 17:48] LABS: AGAP 14; ALKALINE PHOSPHATASE 78 U/L (32-104); BUN 9 mg/dL (8-22); CHLORIDE 102 mmol/L (98-107); COSMO 276; CREATININE 0.6 mg/dL (0.5-0.9); ESTIMATED GFR > 60; GLUCOSE 101 mg/dL (70-104); GOT 17 U/L (10-30); GPT 12 U/L (10-36); MAGNESIUM 1.8 mg/dL (1.5-2.7); POTASSIUM 4.5 mmol/L (3.5-5.1); SODIUM 139 mmol/L (136-145); TCO2 23 mmol/L (25-35); TOTAL PROTEIN 6.9 g/dL (6.3-8.3)
--- NOTE | 2019-05-14 17:53 | Diag Imaging Result Doc PS360 ---
EXAM: CHEST-2 VIEWS - 05/14/2019 HISTORY: SOB TECHNIQUE: Chest two views COMPARISON: 04/05/2019 portable chest FINDINGS: Heart size is normal. The lungs appear clear. There is no pleural effusion or pneumothorax identified. IMPRESSION: No evidence of acute disease. Electronically signed by Riley Clever [place] 05/14/2019 5:50 PM
[2019-05-14] MEDS ORDERED: ZOFRAN IV PRN (18:03)
[2019-05-14 18:07] LABS: INFLUENZA A NEGATIVE (NEGATIVE); INFLUENZA B NEGATIVE (NEGATIVE)
--- NOTE | 2019-05-14 19:58 | HISTORY AND PHYSICAL ---
PRIMARY CARE PROVIDER: Dr. Townsend. CHIEF COMPLAINT: Shortness of breath, chest tightness. HISTORY OF PRESENT ILLNESS: Ms. Alice Kirkland is a 44-year-old female who presents with complaints of shortness of breath and medical history of asthma and seasonal allergies. She states really it started last night where she had shortness of breath, but about 2 hours prior to her arrival here today, it was significant to the point she was having chest tightness and could not catch her breath. She denies any fever or chills. Denies coughing up any colors. She received high-dose steroids, antibiotic therapy, 2 nebulizer treatments and felt a little bit better, but we are going to admit for overnight. She states that on Sunday, she is supposed to be in an appointment with a electronic warfare linguist, but she is not sure of the physician's name. It is in [place]. PAST MEDICAL HISTORY: 1. Hypertension. 2. Asthma. 3. Depression. 4. Seasonal allergies. SURGICAL HISTORY: 1. section. 2. Right elbow surgery. 3. Breast reduction. SOCIAL HISTORY: Quit smoking in 2007. She was a half pack per day smoker since age of 15. Rarely drinks alcohol. She has applied for disability. She denies any illicit drug use. She has 1 adult daughter and she is single. FAMILY HISTORY: Denies. ALLERGIES: Sulfa, eggs and nuts can cause anaphylaxis. She is also allergic to milk and tree nut, cats and dogs. Essentially, she has multiple environmental allergies and food allergies. HOME MEDICATIONS: 1. Breo Ellipta 2 puffs inhaled daily. 2. Albuterol 8.5 g inhaled. 3. Albuterol Atrovent every 2 hours p.r.n. 4. Singular 10 mg p.o. daily. REVIEW OF SYSTEMS: Fourteen point review of systems are complete and all were negative, except for those mentioned above in HPI. PHYSICAL EXAMINATION: VITAL SIGNS: Temperature 98.3 degrees, heart rate 100, respiratory rate 20, blood pressure 117/78, O2 saturation 94% on room air. Height 5 feet 4 inches tall, 220 pounds. BMI is 37.8. GENERAL: Ms. Alice Kirkland is a 44-year-old . Female she is in no acute distress. She is able answer questions appropriately. HEENT: Atraumatic, normocephalic. Pupils equal, round, reactive to light. Extraocular movements intact. Mucous membranes are moist. NECK: Trachea midline. CARDIOVASCULAR: S1, S2. Tachycardic rate and rhythm. No rubs, gallops, or murmurs. No lower extremity edema, +2 dorsalis and radial pulses. Negative JVD or carotid bruits. PULMONARY: Expiratory wheezes noted throughout all lung rosenbaum, but no accessory muscle use or work of breathing noted. She is tolerating room air. GI: Soft, nontender, nondistended. Positive bowel sounds x4. EXTREMITIES: Moves all extremities equally. Full range of motion. NEUROLOGIC: A and O x3. Follows commands. Sensory is intact. SKIN: Warm, dry, intact. LABORATORY DATA: White blood cells 10,000, hemoglobin 11, hematocrit 37, platelet count 358,000. Sodium 139, potassium 4.5, BUN 9, creatinine 0.6, glucose 101, calcium 9.0, magnesium 1.8, bilirubin 0.30, AST 17, ALT 12. Troponin 8. Albumin 4.0. Lactate 1.4. Influenza negative. IMAGING: Chest x-ray: No acute disease. EKG: Sinus tachycardia, rate 102. QTc 469. ASSESSMENT AND PLAN: 1. Acute exacerbation of asthma with possibly developing chronic obstructive pulmonary disease. She is supposed to follow up with electronic warfare linguist on Sunday. We will do Xopenex and Atrovent nebulizers. The Xopenex because she is tachycardic. We will continue her on steroids and we will do Rocephin. Oxygen if she needs it. 2. History of hypertension. That is currently stable and she does not appear to be on any medications for it. 3. Depression. Also not on any medications for it. 4. Morbid obesity. Exercise and diet recommended. 5. Deep venous thrombosis prophylaxis. Lovenox. Dictated by JORDY Deal for Nathan Dhaliwal MD cc: JORDY Deal MD
[2019-05-14] MEDS ORDERED: NS 1,000 ML IV ONE (20:04)
[2019-05-14] MEDS: PULMICORT INH SCH (22:10)
[2019-05-14] MEDS: ATROVENT NEB INH SCH (22:10)
[2019-05-14] MEDS: XOPENEX NEB INH SCH (22:10)
[2019-05-14] MEDS: AMBIEN PO PRN (22:43)
[2019-05-14 22:44] LABS: INR 0.85; PTT 32.4 Seconds (22.3-41.8)
[2019-05-15 00:32] LABS: URINE SOURCE CLEAN CATCH
[2019-05-15 00:37] LABS: BILIRUBIN URINE NEGATIVE (NEGATIVE); BLOOD URINE NEGATIVE (NEGATIVE); COLOR YELLOW; GLUCOSE URINE TRACE mg/dL (NEGATIVE); KETONE URINE 10 mg/dL (NEGATIVE); LEUKOCYTES URINE NEGATIVE (NEGATIVE); NITRITE URINE NEGATIVE (NEGATIVE); PH URINE 7.5; PROTEIN URINE TRACE mg/dL (NEGATIVE); SP GRAVITY URINE 1.026; TURBIDITY URINE CLEAR (CLEAR); UR EPITHELIAL CELLS <10 /HPF (<10); URINE BACTERIA NEGATIVE /HPF; URINE RBC <10 /HPF (<10); URINE WBC <10 /HPF (<10); UROBILINOGEN URINE NORMAL (NORMAL)
--- NOTE | 2019-05-15 01:04 | HISTORY AND PHYSICAL ---
ADDENDUM: The patient presented to the hospital with increased cough and congestion, increased shortness of breath, increased work of breathing. She has had wheezing as well. Denies any fevers. We are going to admit her to the hospital, treat for COPD exacerbation and we will follow. cc: Nathan Dhaliwal MD
[2019-05-15] MEDS: SOLU-MEDROL IV SCH ×3 (01:48→17:58)
[2019-05-15 02:04] LABS: INR 0.89; PROTIME 12.5 Seconds (11.0-16.0)
[2019-05-15 02:05] LABS: PTT 27.7 Seconds (22.3-41.8)
[2019-05-15] MEDS: ATROVENT NEB INH SCH ×4 (03:17→21:22)
[2019-05-15] MEDS: XOPENEX NEB INH SCH ×4 (03:18→21:22)
[2019-05-15] MEDS: TYLENOL PO PRN (03:43)
[2019-05-15 05:26] LABS: AGAP 17; ALBUMIN 3.8 g/dL (3.5-5.0); ALKALINE PHOSPHATASE 74 U/L (32-104); BUN 14 mg/dL (8-22); CHLORIDE 102 mmol/L (98-107); COSMO 277; CREATININE 0.7 mg/dL (0.5-0.9); ESTIMATED GFR > 60; GLUCOSE 152 mg/dL (70-104); GOT 13 U/L (10-30); GPT 12 U/L (10-36); POTASSIUM 4.2 mmol/L (3.5-5.1); SODIUM 137 mmol/L (136-145); TCO2 18 mmol/L (25-35); TOTAL PROTEIN 7.3 g/dL (6.3-8.3)
[2019-05-15 06:07] LABS: BASO# 0.02 X1000 (0.0-0.2); BASO% 0.2 % (0.0-0.8); EOS# 0.02 X1000 (0.0-0.7); EOS% 0.1 % (0.0-10.0); HEMATOCRIT 38.1 % (37.0-47.0); HEMOGLOBIN 11.2 g/dL (12.0-16.0); IMM GRAN# 0.04 X1000 (0.0-0.04); IMM GRAN% 0.4 % (0.0-0.5); LYMPH# 0.58 X1000 (1.2-3.4); MCHC 29.2 g/dL (33-37); MCV 78.7 FL (81-99); MONO# 0.09 X1000 (0.11-0.59); MONO% 0.9 % (1.7-9.3); MPV 10.2 FL (7.4-10.4); NEUT# 9.73 X1000 (1.4-6.5); NEUT% 92.4 % (42.2-75.2); PLT 362 X1000 (130-400); RBC 4.83 XMIL (4.2-5.4); RDW 16.4 % (11.5-14.5); WBC 10.52 X1000 (4.8-10.8)
[2019-05-15] MEDS: PULMICORT INH SCH ×2 (07:47→21:22)
[2019-05-15] MEDS: LOVENOX SUBQ SCH (08:27)
[2019-05-15] MEDS: SINGULAIR PO SCH (08:59)
[2019-05-15 09:49] LABS: BANDS 1 % (0-1); BASO 1 % (0-1); LYMPHS 5 % (21-51); MONO 1 % (1-9); SEGS 92 % (42-75)
[2019-05-15] MEDS: ROCEPHIN 1 GM in NS 50 ML IV SCH (17:58)
[2019-05-15] MEDS: AMBIEN PO PRN (21:00)
--- NOTE | 2019-05-16 00:17 | PROGRESS NOTE ---
DATE: 05/15/2019 SUBJECTIVE: Patient notes that she is starting to breathe easier, still having some wheezing, but that is improved. Denies any fevers or chills. Denies chest pain, palpitations. PHYSICAL EXAMINATION: Vital Signs: Reviewed. General: She is awake, alert. She is in mild distress, which is an improvement from admission. HEENT: Normocephalic. Neck: Supple. Cardiovascular: Regular rate. Chest: Clear. Abdomen: Soft. Extremities: Moves all extremities. Neurologic: No focal changes. Skin: Warm, dry. No rash. ASSESSMENT: 1. Nausea and vomiting. 2. Chronic obstructive pulmonary disease with exacerbation. 3. Hypertension. 4. Depression. 5. Obesity. PLAN: We are going to continue patient in the hospital. Continue breathing treatments, oxygen, steroids, Zofran as needed and will follow. Expect that she will be in the hospital 2 or 3 more days. cc: Nathan Dhaliwal MD
[2019-05-16] MEDS: SOLU-MEDROL IV SCH ×3 (01:40→16:16)
[2019-05-16] MEDS: XOPENEX NEB INH SCH ×4 (03:09→21:15)
[2019-05-16] MEDS: ATROVENT NEB INH SCH ×4 (03:09→21:15)
[2019-05-16 06:31] LABS: AGAP 15; ALBUMIN 3.7 g/dL (3.5-5.0); ALKALINE PHOSPHATASE 79 U/L (32-104); BUN 18 mg/dL (8-22); CALCIUM 8.9 mg/dL (8.8-10.2); CHLORIDE 102 mmol/L (98-107); COSMO 282; CREATININE 0.7 mg/dL (0.5-0.9); ESTIMATED GFR > 60; GLUCOSE 249 mg/dL (70-104); GOT 10 U/L (10-30); GPT 10 U/L (10-36); POTASSIUM 4.1 mmol/L (3.5-5.1); SODIUM 136 mmol/L (136-145); TCO2 19 mmol/L (25-35); TOTAL BILIRUBIN < 0.15 mg/dL (0.20-1.00); TOTAL PROTEIN 7.1 g/dL (6.3-8.3)
[2019-05-16 06:39] LABS: BASO# 0.01 X1000 (0.0-0.2); BASO% 0.1 % (0.0-0.8); EOS# 0.01 X1000 (0.0-0.7); EOS% 0.1 % (0.0-10.0); HEMATOCRIT 36.4 % (37.0-47.0); HEMOGLOBIN 10.9 g/dL (12.0-16.0); IMM GRAN# 0.11 X1000 (0.0-0.04); IMM GRAN% 0.6 % (0.0-0.5); LYMPH# 0.99 X1000 (1.2-3.4); LYMPH% 5.1 % (20.5-51.1); MCH 23.5 PG (27-31); MCHC 29.9 g/dL (33-37); MCV 78.4 FL (81-99); MONO# 0.42 X1000 (0.11-0.59); MONO% 2.2 % (1.7-9.3); MPV 10.5 FL (7.4-10.4); NEUT# 17.96 X1000 (1.4-6.5); NEUT% 91.9 % (42.2-75.2); PLT 384 X1000 (130-400); RBC 4.64 XMIL (4.2-5.4); RDW 16.5 % (11.5-14.5)
[2019-05-16 06:49] LABS: LYMPHS 6 % (21-51); MONO 2 % (1-9); SEGS 92 % (42-75)
[2019-05-16] MEDS: LOVENOX SUBQ SCH (08:12)
[2019-05-16] MEDS: SINGULAIR PO SCH (08:13)
[2019-05-16] MEDS: PULMICORT INH SCH ×2 (10:30→18:55)
[2019-05-16] MEDS: ROCEPHIN 1 GM in NS 50 ML IV SCH ×2 (16:16→17:01)
[2019-05-16] MEDS: TYLENOL PO PRN (21:55)
[2019-05-16] MEDS: AMBIEN PO PRN (21:55)
--- NOTE | 2019-05-16 23:51 | PROGRESS NOTE ---
DATE: 05/16/2019 SUBJECTIVE: Patient notes she is feeling a lot better, although still tired, fatigued, still has difficulty ambulating to the restroom. Still wheezing and short of breath. PHYSICAL EXAM: Temperature 98 degrees, pulse 104, respiratory 18, BP 157/75.General: Patient is pleasant, mild distress, much improved from admission. HEENT: Normocephalic. Neck: Supple. Cardiovascular: Regular rate. Chest: Decreased but equal and improved from admission. Positive wheezing diffusely, but also improved. Abdomen: Soft, obese, nondistended. Extremities: Moves all extremities. No edema. Neurologic: No changes. ASSESSMENT: 1. Chronic obstructive pulmonary disease with exacerbation. 2. Hypertension. 3. Obesity. 4. Depression. 5. Leukocytosis, likely secondary to steroids. PLAN: We are going to decrease Solu-Medrol from 60 to 40 IV q.8h. Continue to follow. Continue breathing treatments, oxygen. Further orders as needed. cc: Nathan Dhaliwal MD
[2019-05-17] MEDS: SOLU-MEDROL IV SCH ×2 (00:49→08:22)
[2019-05-17] MEDS: ATROVENT NEB INH SCH ×2 (03:17→09:03)
[2019-05-17] MEDS: XOPENEX NEB INH SCH ×2 (03:18→09:03)
[2019-05-17 06:20] LABS: BASO# 0.01 X1000 (0.0-0.2); BASO% 0.1 % (0.0-0.8); HEMATOCRIT 35.3 % (37.0-47.0); HEMOGLOBIN 10.5 g/dL (12.0-16.0); IMM GRAN# 0.12 X1000 (0.0-0.04); IMM GRAN% 0.7 % (0.0-0.5); LYMPH# 0.88 X1000 (1.2-3.4); LYMPH% 5.2 % (20.5-51.1); MCH 23.4 PG (27-31); MCHC 29.7 g/dL (33-37); MCV 78.6 FL (81-99); MONO# 0.59 X1000 (0.11-0.59); MONO% 3.5 % (1.7-9.3); MPV 9.9 FL (7.4-10.4); NEUT# 15.44 X1000 (1.4-6.5); NEUT% 90.5 % (42.2-75.2); PLT 369 X1000 (130-400); RBC 4.49 XMIL (4.2-5.4); RDW 16.3 % (11.5-14.5); WBC 17.04 X1000 (4.8-10.8)
[2019-05-17 06:30] LABS: AGAP 14; ALBUMIN 3.6 g/dL (3.5-5.0); ALKALINE PHOSPHATASE 65 U/L (32-104); BUN 14 mg/dL (8-22); CALCIUM 8.6 mg/dL (8.8-10.2); CHLORIDE 103 mmol/L (98-107); COSMO 282; CREATININE 0.6 mg/dL (0.5-0.9); ESTIMATED GFR > 60; GLUCOSE 162 mg/dL (70-104); GOT 9 U/L (10-30); GPT 9 U/L (10-36); POTASSIUM 4.2 mmol/L (3.5-5.1); SODIUM 139 mmol/L (136-145); TCO2 22 mmol/L (25-35); TOTAL BILIRUBIN < 0.15 mg/dL (0.20-1.00); TOTAL PROTEIN 6.5 g/dL (6.3-8.3)
[2019-05-17 07:00] LABS: ANISOCYTOSIS OCCASIONAL; LYMPHS 6 % (21-51); MONO 1 % (1-9); POLYCHROM OCCASIONAL; SEGS 93 % (42-75)
[2019-05-17] MEDS: SINGULAIR PO SCH (08:22)
[2019-05-17] MEDS: LOVENOX SUBQ SCH (08:26)
[2019-05-17] MEDS: PULMICORT INH SCH (09:02)
[2019-05-17] MEDS ORDERED: OMNICEF PO SCH (11:00)
[2019-05-17 13:42] VITALS: BP 169/85
--- NOTE | 2019-05-17 14:37 | DISCHARGE SUMMARY ---
ADMISSION DATE: 05/14/2019 DISCHARGE DATE: 05/17/2019 ADMISSION DIAGNOSES: 1. Acute exacerbation of asthma with possible developing COPD. 2. History of hypertension. 3. Depression. 4. Morbid obesity. DISCHARGE DIAGNOSES: 1. Chronic obstructive pulmonary disease exacerbation. 2. Hypertension. 3. Obesity. 4. Depression. 5. Leukocytosis secondary to steroid induction. CONSULTATIONS: None. SURGERIES AND PROCEDURES: None. HOSPITAL COURSE: Ms. Alice Kirkland is a 44-year-old female with a medical history of morbid obesity, asthma, and seasonal allergies growing up. Quit smoking in 2007, but she was a smoker from age of 15 until then. Came in with shortness of breath, chest tightness and wheezing, treated with steroids, nebulizers, and antibiotics and oxygen. Steroids did make her white blood cell count shoot up but otherwise no signs or symptoms of infection. It also made her glucose shoot up while she was here, but no history of diabetes and she is stable and ready for discharge. DISCHARGE VITAL SIGNS: Temperature 97.7 degrees, heart rate 84, respiratory rate 18, blood pressure 169/85, O2 saturation 95% on room air. DISCHARGE LAB DATA: White blood cells 17,000, hemoglobin 10, hematocrit 35, platelet count 369,000, sodium 139, potassium 4.2, BUN 14, creatinine 0.6, glucose 162, calcium 8.6, bilirubin less than 0.15, AST 9, ALT 9. Micro blood cultures no growth. IMAGING: Chest x-ray on admission, no acute disease. EKG sinus tachycardia rate 102, and QTc was 469. DISCHARGE MEDICATIONS: 1. Breo Ellipta 2 puffs inhaled daily. 2. ProAir. 3. Albuterol Atrovent nebulizers every 2 hours p.r.n. 4. Medrol Dosepak. 5. Omnicef 300 mg p.o. twice daily for 5 days. 6. Singulair 10 mg p.o. daily. DISCHARGE DIET: Regular. ACTIVITY: As tolerated. PHYSICIAN FOLLOWUPS: Testing Projects Administrator and her primary care provider. DISCHARGE INSTRUCTIONS: If your condition changes, contact physician and/or return to the emergency department. Changes may include, but are not limited to, shortness of breath, increased fatigue, excessive bleeding, unexplained weight loss or gain, unmanageable pain, signs or symptoms of infection. DISCHARGE DISPOSITION: Home. Dictated by JORDY Deal for Nathan Dhaliwal MD cc: JORDY Deal MD
--- NOTE | 2019-05-17 21:34 | DISCHARGE SUMMARY ---
ADMISSION DATE: 05/14/2019 DISCHARGE DATE: 05/17/2019 On discharge, patient is awake, alert. She still has minimal wheezing but much improved from admission. She states that she is feeling much better. Discussed with her that I certainly would prefer her to stay in the hospital another day or 2, but given the propensity for her to be exposed to coronavirus, more likely in the hospital than if she stays at home, certainly would agree with her discharging home. Discussed, however, if symptoms worsen, she understands that she needs to come back to the hospital regardless. cc: Nathan Dhaliwal MD
== END 2019-05-17 14:25 | disposition home or self-care (01) | DRG 191 ==
LOC: P.ED 16:32 → EDIPHOLD 21:01 → P.MEDSURG 21:51
PROVIDERS: ATTEND Family Medicine

== ENCOUNTER 2019-06-22 18:55 | Inpatient (IN) ==
[2019-06-22] MEDS ORDERED: SOLU-MEDROL IV ONE (19:34)
[2019-06-22] MEDS ORDERED: VENTOLIN HFA INH ONE (19:34)
[2019-06-22] MEDS ORDERED: DUONEB (A & A) INH ONE ×3 (19:41→22:54)
--- NOTE | 2019-06-22 20:05 | Diag Imaging Result Doc PS360 ---
EXAM: CHEST-PORTABLE - 06/22/2019 HISTORY: SOB, Asthma TECHNIQUE: Portable chest COMPARISON: 06/15/2019 FINDINGS: Heart size is normal. The lungs appear essentially clear. The lungs do not appear hyperexpanded. There is no pleural effusion or pneumothorax identified. IMPRESSION: No evidence of acute disease. Electronically signed by Riley Diaz 06/22/2019 8:03 PM
[2019-06-22 20:23] LABS: AGAP 16; ALB/GLOB RATIO 1.3; ALBUMIN 3.9 g/dL (3.5-5.0); ALKALINE PHOSPHATASE 91 U/L (32-104); BUN 9 mg/dL (8-22); CALCIUM 9.1 mg/dL (8.8-10.2); CHLORIDE 101 mmol/L (98-107); COSMO 283; CREATININE 0.8 mg/dL (0.5-0.9); ESTIMATED GFR > 60; GLUCOSE 125 mg/dL (70-104); GOT 11 U/L (10-30); GPT 11 U/L (10-36); POTASSIUM 4.1 mmol/L (3.5-5.1); SODIUM 142 mmol/L (136-145); TCO2 25 mmol/L (25-35); TOTAL BILIRUBIN 0.32 mg/dL (0.20-1.00); TOTAL PROTEIN 6.9 g/dL (6.3-8.3)
[2019-06-22] MEDS ORDERED: NS 1,000 ML IV ONE (20:26)
[2019-06-22 20:28] LABS: BASO# 0.05 X1000 (0.0-0.2); BASO% 0.4 % (0.0-0.8); EOS# 0.75 X1000 (0.0-0.7); EOS% 6.3 % (0.0-10.0); HEMATOCRIT 39.3 % (37.0-47.0); HEMOGLOBIN 12.3 g/dL (12.0-16.0); LYMPH# 1.88 X1000 (1.2-3.4); LYMPH% 15.7 % (20.5-51.1); MCHC 31.3 g/dL (33-37); MCV 76.8 FL (81-99); MONO% 7.5 % (1.7-9.3); MPV 9.8 FL (7.4-10.4); NEUT# 8.36 X1000 (1.4-6.5); NEUT% 70.1 % (42.2-75.2); PLT 324 X1000 (130-400); RBC 5.12 XMIL (4.2-5.4); WBC 11.94 X1000 (4.8-10.8)
[2019-06-22 22:20] LABS: INR 0.93; PROTIME 12.6 Seconds (11.0-16.0)
[2019-06-22] MEDS ORDERED: ROCEPHIN 1 GM in NS 50 ML IV ONE (22:54)
--- NOTE | 2019-06-22 22:58 | PROVIDER DOCUMENTATION ---
This chart was entered by Kb Tomlin Scribe, acting as scribe for Negra Christina CRNP. HPI-Respiratory General - General Stated Complaint: SEVERE SOB, HX ASTHMA Time Seen by Provider: 06/22/19 18:56 Source: patient Allergies/Adverse Reactions: Patient Allergies Allergy/AdvReac Type Severity Reaction Status Date / Time Sulfa (Sulfonamide Allergy Severe ANAPHYLAXIS Verified 06/22/19 19:58 Antibiotics) egg Allergy ANAPHYLAXIS Verified 06/22/19 19:58 nut - unspecified Allergy ANAPHYLAXIS Verified 06/22/19 19:58 milk AdvReac Unknown Verified 06/22/19 19:58 tree nut AdvReac Unknown Verified 06/22/19 19:58 Home Medications: Home Medication List Medication Instructions Recorded Confirmed Last Taken Type Montelukast [Singulair] 10 mg PO DAILY #30 tab 05/21/18 06/22/19 Unknown Rx Albuterol Sulfate Inhaler 2 puff INH Q3H PRN 06/22/19 06/22/19 Unknown History [Ventolin Hfa] - History of Present Illness-Resp Nature of Presenting Problem: 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 She reports she use her inhaler and nebulizer treatment which has not helped. She denies fever, chills and SOB. Quality of Pain: reports: none Severity in ED: reports: mild Onset/Duration: reports: just prior to arrival Timing: reports: still present Context: denies: recent foreign travel Exposure: reports: unknown cause Cough Quality/Degree: reports: productive cough Current Respiratory Medication Therapy: Initiated albuterol/atrovent inhale, Initiated A/A nebulizer Associated Symptoms: reports: cough, shortness of breath. denies: fever/chills, flu-like symptoms, hurts to breathe, hyperventilating Review of Systems - Adult - REVIEW OF SYSTEMS - ADULT Constitutional: denies: chills, fever Eyes: reports: no symptoms reported Ears, Nose, Mouth & Throat: reports: no symptoms reported Cardiovascular: reports: no symptoms reported Respiratory: reports: cough, shortness of breath, wheezing Gastrointestinal: denies: abdominal pain, nausea, vomiting Genitourinary: reports: no symptoms reported Musculoskeletal: denies: back pain, neck pain Integumentary: reports: no symptoms reported Neurological: denies: dizziness/vertigo, headache/migraines Psychiatric: reports: no symptoms reported Endocrine: reports: no symptoms reported Hematologic/Lymphatic: reports: no symptoms reported Allergic/Immunologic: reports: no symptoms reported All Other Systems: Reviewed and Negative Past History - Adult - PAST MEDICAL HISTORY-ADULT Review of Records: reports: Old Records Reviewed, Nursing Assessment Review, Medications Reviewed Major Childhood Illnesses: reports: denies history Cardiovascular: reports: HTN Respiratory: reports: asthma, COPD Gastrointestinal: reports: denies history Obstetrical/Gynecological: reports: denies history Genitourinary: reports: denies history Musculoskeletal: reports: denies history Neurological: reports: denies history Psychiatric: reports: anxiety, depression Endocrine/Immune: reports: denies history Other Conditions: reports: denies history - PRIOR SURGERIES/PROCEDURES Surgical/Procedure History: reports: , orthopedic (extremity) (R elbow Sx), breast (reduction) - PRIOR HOSPITALIZATIONS Prior Hospitalizations: reports: none - IMMUNIZATION STATUS Childhood Immunizations: See Nurse Assessment Flu Vaccine: See Nurse Assessment - FAMILY HISTORY Family History: reviewed, not pertinent - SOCIAL HISTORY Smoking: non-smoker, secondhand Living Situation: family Physical Exam-General - PHYSICAL EXAM-ADULT Initial Vital Signs Reviewed: Yes - CONSTITUTIONAL General Appearance: appears well, alert, no apparent distress - EYES Eyes: PERRL/EOMI, pink conjunctivae - HEAD, EARS, NOSE, MOUTH & THROAT HENMT: moist mucous membranes, normal ENT inspection, pharynx normal - NECK Neck: full range of motion, supple, normal inspection - RESPIRATORY Respiratory: no pleuratic chest pain, no respiratory distress, no accessory muscle use, wheezing (bilaterally expiratory) - CARDIOVASCULAR Cardiovascular: normal peripheral pulses, regular rate, rhythm - GASTROINTESTINAL (ABDOMEN) Abdominal Exam: normal bowel sounds, non tender, soft - MUSCULOSKELETAL Back Exam: no CVA tenderness, no vertebral tenderness Extremity: normal range of motion, non-tender, normal gait, normal inspection, no pedal edema - SKIN Integumentary: normal color, normal turgor, warm/dry - NEUROLOGIC Neurologic: grossly normal, no motor/sensory deficits - PSYCHIATRIC Psych/Mental Status: normal mood/affect, normal thought content, normal thought process, oriented x 3 Progress - PLAN OF CARE/RESULTS Progress/Plan/Lab Results: Vital Signs - 8 hr 06/22/19 19:31 06/22/19 19:45 06/22/19 21:36 Temperature 98.0 F Pulse Rate 105 H 88 95 H Respiratory Rate 20 16 18 Blood Pressure 134/90 132/70 O2 Sat by Pulse Oximetry 96 95 Laboratory Results - last 24 hr 06/22/19 06/22/19 06/22/19 19:50 19:50 19:50 WBC 11.94 H RBC 5.12 Hgb 12.3 Hct 39.3 MCV 76.8 L MCH 24.0 L MCHC 31.3 L RDW Std Deviation 17.0 H Plt Count 324 MPV 9.8 Neut % (Auto) 70.1 Lymph % (Auto) 15.7 L [place] % (Auto) 7.5 Eos % (Auto) 6.3 Baso % (Auto) 0.4 Neut # (Auto) 8.36 H Lymph # (Auto) 1.88 [place] # (Auto) 0.90 H Eos # (Auto) 0.75 H Baso # (Auto) 0.05 PT INR PTT (Actin FS) Sodium 142 Potassium 4.1 Chloride 101 Carbon Dioxide 25 Anion Gap 16 BUN 9 Creatinine 0.8 Estimated GFR/1.73 m2 > 60 BUN/Creatinine Ratio 11 Glucose 125 H Calculated Osmolality 283 Calcium 9.1 Total Bilirubin 0.32 AST 11 ALT 11 Alkaline Phosphatase 91 Creatine Kinase Troponin T High Sens Total Protein 6.9 Albumin 3.9 Globulin 3.0 Albumin/Globulin Ratio 1.3 Plasma Lactate 2.5 H 06/22/19 06/22/19 06/22/19 19:50 19:50 19:50 WBC RBC Hgb Hct MCV MCH MCHC RDW Std Deviation Plt Count MPV Neut % (Auto) Lymph % (Auto) [place] % (Auto) Eos % (Auto) Baso % (Auto) Neut # (Auto) Lymph # (Auto) [place] # (Auto) Eos # (Auto) Baso # (Auto) PT 12.6 INR 0.93 PTT (Actin FS) 33.0 Sodium Potassium Chloride Carbon Dioxide Anion Gap BUN Creatinine Estimated GFR/1.73 m2 BUN/Creatinine Ratio Glucose Calculated Osmolality Calcium Total Bilirubin AST ALT Alkaline Phosphatase Creatine Kinase 61 Troponin T High Sens 11 Total Protein Albumin Globulin Albumin/Globulin Ratio Plasma Lactate Orders Category Date Time Status Cardiac Monitoring NOW Care 06/22/19 21:06 Completed NEWS Score 2-4:Order NEWS Lactate Series NOW Care 06/22/19 19:40 Active Notify Provider of NEWS Score NOW Care 06/22/19 21:06 Active Saline Loc NOW Care 06/22/19 19:34 Active CHEST-PORTABLE [RAD] Stat Exams 06/22/19 19:34 Completed BLOOD CULTURE [BLDCUL] Stat Lab 06/22/19 19:50 Results CBC WITH ELECTRONIC DIFF [HEME] Stat Lab 06/22/19 19:50 Completed CK PROFILE [SP CHEM] Stat Lab 06/22/19 19:50 Completed COMPREHENSIVE METABOLIC PANEL [CHEM] Stat Lab 06/22/19 19:50 Completed LACTATE, PLASMA [CHEM] Stat Lab 06/22/19 19:50 Completed LACTATE, PLASMA [CHEM] Stat Lab 06/22/19 22:50 Uncollected LACTATE, PLASMA [CHEM] Stat Lab 06/23/19 00:50 Uncollected PROTIME WITH INR [COAG] Stat Lab 06/22/19 19:50 Completed PTT [COAG] Stat Lab 06/22/19 19:50 Completed TROPONIN T HIGH SENSITIVITY Stat Lab 06/22/19 19:50 Completed URINALYSIS W/POSS RFLX CULT [URINALYSIS] Stat Lab 06/22/19 21:06 Uncollected 0.9% Sodium Chloride Inj [Ns] 1,000 ml Med 06/22/19 20:26 Discontinued IV 999 mls/hr Albuterol 2.5MG/Ipratrop 0.5MG [Duoneb (A & A)] Med 06/22/19 19:41 Discontinued 3 ml INH NOW ONE Albuterol 2.5MG/Ipratrop 0.5MG [Duoneb (A & A)] Med 06/22/19 21:17 Discontinued 3 ml INH NOW ONE Albuterol 2.5MG/Ipratrop 0.5MG [Duoneb (A & A)] Med 06/22/19 22:54 Discontinued 3 ml INH NOW ONE Albuterol Sulfate Inhaler [Ventolin Hfa] Med 06/22/19 19:34 Discontinued 4 puff INH NOW ONE CefTRIAXONE [Rocephin] 1 gm Med 06/22/19 22:54 Active 0.9% Sodium Chloride Inj [Ns] 50 ml IV NOW Methylprednisolone Sod Succ [Solu-Medrol] Med 06/22/19 19:34 Discontinued 125 mg IV NOW ONE Aerosol Treatments Routine Oth 06/22/19 19:41 Completed Aerosol Treatments Routine Oth 06/22/19 21:17 Completed Aerosol Treatments Routine Oth 06/22/19 22:54 Active Aerosol Treatments Stat Oth 06/22/19 19:41 Completed Aerosol Treatments Stat Oth 06/22/19 21:17 Completed Aerosol Treatments Stat Oth 06/22/19 22:54 Active MDI Treatments Stat Ot 06/22/19 19:35 Completed Result Diagrams: 06/22/19 19:50 06/22/19 19:50 - REASSESSMENT Reassessment #1 Time Reassessed: 21:17 Status: improving (pt reports some improvement with nebs will order repeat now.) - XRAY 1 XRAY Study: Chest Impression: See EMR Report (EXAM: CHEST-PORTABLE - 06/22/2019 HISTORY: SOB, Asthma TECHNIQUE: Portable chest COMPARISON: 06/15/2019 FINDINGS: Heart size is normal. The lungs appear essentially clear. The lungs do not appear hyperexpanded. There is no pleural effusion or pneumothorax identified. IMPRESSION: No evidence of acute disease. Electronically signed by Riley Diaz 06/22/2019 8:03 PM 06/22/192002 Interpreting Physician: Riley Diaz MD Dictated Date/Time: 06/22/192001 cc: Negra Christina; Celestino Townsend MD) - CONSULTS/PCP/HOSPITALIST Notification #1 *Consult/PCP/Hospitalist*: Dr. Horton Time Discussed: 22:57 Consult Disposition: Admit Departure - Departure Date of Disposition Decision: 06/22/19 Time of Disposition Decision: 22:57 DIAGNOSIS: Bronchitis, Asthma Disposition: ADMITTED INPATIENT 09 Certified Medical Emergency: Emergent Condition: Stable Referrals and Follow-Ups: Celestino Townsend MD [Primary Care Provider] - - Critical Care Note This patient required my direct & personal management of CC.: No Attestation - Physician/ NIGEL Attestation Patient care was provided by Advanced Practice Provider:: Yes Advanced Practice Provider:: Negra Christina Advanced Practice Provider documentation review:: The Mid-level provider documentation, treatment plan and medical decision making was reviewed by the physician who agrees with all treatment and medical decision making by the P. The physician spent face to face time with patient:: No Advanced Practice Provider documentation review:: Supervising physician onsite and consulted in the evaluation and care of this patient. The physician did not have a face to face encounter with the patient. This chart was documented by the indicated scribe, (Kb Tomlin Scribe) and accurately reflects the services I performed and decisions made by , Negra Christina CRNP, as attested by the provider's signature.
[2019-06-23] MEDS ORDERED: TYLENOL PO PRN (00:35)
[2019-06-23] MEDS ORDERED: ZOFRAN IV PRN (00:35)
[2019-06-23] MEDS: LOVENOX SUBQ SCH (00:56)
[2019-06-23] MEDS: ZITHROMAX 500 MG/NS 500 MG/250 ML IVPB IV SCH (00:56)
[2019-06-23] MEDS: SOLU-MEDROL IV SCH ×4 (01:00→20:24)
--- NOTE | 2019-06-23 01:12 | HISTORY AND PHYSICAL ---
PRIMARY CARE PROVIDER: Patient of Dr. Townsend. REASON FOR ADMISSION: One-week history of progressive shortness of breath and wheezing. HISTORY OF PRESENT ILLNESS: Ms. Alice Kirkland is a 44-year-old white female with past medical history of asthma, seasonal allergic rhinitis and hypertension. She was last admitted here just over a month ago for asthma exacerbation. She lives with her mother who actively smokes around her. She admits to having a chronic history of oculonasal pruritus and sneezing which is part of her allergic rhinitis symptoms, but states that these symptoms have not worsened. A week ago, she started having progressive shortness of breath with protracted dry cough with occasional episodes of scanty yellow sputum production. She denies any fever or chills. No anosmia or ageusia. No leg swelling. No PND or orthopnea. Said this is very consistent with her usual asthma flare-ups. She has tried using a home nebulizer at home to relieve her symptoms but without any success. She was seen at [place] last week and advised to stay, but she wanted to try her luck at home with her home treatments. No extremity redness. No arthralgia or rash. No GI or complaints. No focal neurological complaints. REVIEW OF SYSTEMS: Twelve system review was done. Positive findings per HPI. No close sick contacts. ALLERGIES: Sulfa drugs, eggs, nuts. HOME MEDICATIONS: Montelukast or otherwise known as Singulair and albuterol inhaler. SOCIAL HISTORY: She stopped smoking 12 years ago. Lives with her mother who is actively a smoker. Does not drink or use illicit drugs. SURGICAL HISTORY: She reports , elbow surgery, breast reduction. LABORATORY WORK: White count 12,000, hemoglobin and hematocrit 12 and 39, platelets 324,000, MCV of 676, normal differential except for mildly elevated eosinophils, BUN 9, creatinine 0.8, glucose 125, lactate 2.5. PT, PTT normal. Chest film, no acute disease noted. PHYSICAL EXAMINATION: VITAL SIGNS: Blood pressure is 136/89, heart rate 96, respiratory rate is 23, temperature is 98 degrees. O2 saturation is 95% on 2 L. GENERAL: She is a morbidly obese, middle-aged white female who is not in acute distress. She is alert and oriented x3. Normal mood and affect. HEENT: Head is normocephalic, atraumatic. Eyes, OLIMPIA, EOMI. She is anicteric. Not pale. ENT exam is grossly normal. no cyanosis, NECK: Short and thick. No JVD or thyromegaly visualized. CHEST: Decreased entry in both lung rosenbaum with few expiratory wheezes. CARDIOVASCULAR: First and second heart sounds heard. No gallops, rubs. Rhythm is regular. ABDOMEN: Protuberant, soft, nontender. No organomegaly. Bowel sounds normal. RECTAL: Exam deferred at this time. EXTREMITY: No edema, clubbing, peripheral cyanosis. Good distal pulse volumes, regular, symmetrical. NEUROLOGICAL: No gross focal deficits. SKIN: Intact. No breakdown, lesion, erythema. Skin exam is grossly normal. ASSESSMENT: 1. Asthma exacerbation. 2. Seasonal allergic rhinitis. 3. Hypertension. PLAN: The patient will be started on systemic steroids, short and long-acting bronchodilators. Empiric antibiotics preferably Zithromax more to exploit its anti-inflammatory properties. 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 This needs to be addressed prior to her discharge hopefully in 1 or 2 days. I would also recommend maybe starting her on nocturnal doses of a nasal spray, i.e., Flonase to address allergic rhinitis. cc: MD Celestino Cisse MD MTDD
[2019-06-23 01:35] LABS: URINE SOURCE CLEAN CATCH
[2019-06-23 01:41] LABS: BILIRUBIN URINE NEGATIVE (NEGATIVE); BLOOD URINE NEGATIVE (NEGATIVE); COLOR YELLOW; GLUCOSE URINE NEGATIVE (NEGATIVE); KETONE URINE NEGATIVE (NEGATIVE); LEUKOCYTES URINE NEGATIVE (NEGATIVE); NITRITE URINE NEGATIVE (NEGATIVE); PH URINE 7.5; PROTEIN URINE TRACE mg/dL (NEGATIVE); SP GRAVITY URINE 1.023; TURBIDITY URINE CLEAR (CLEAR); UROBILINOGEN URINE NORMAL (NORMAL)
[2019-06-23 01:46] LABS: UR EPITHELIAL CELLS <10 /HPF (<10); URINE BACTERIA NEGATIVE /HPF; URINE RBC <10 /HPF (<10); URINE WBC <10 /HPF (<10)
[2019-06-23 02:06] LABS: URINE CASTS NONE SEEN; URINE CRYSTALS NONE SEEN; URINE SMALL ROUND CELLS NONE SEEN; URINE YEAST NONE SEEN
[2019-06-23] MEDS: FLONASE NAS SCH ×2 (03:16→20:29)
[2019-06-23] MEDS: DUONEB (A & A) INH SCH ×5 (03:28→22:29)
[2019-06-23 07:50] LABS: AGAP 12; BUN 11 mg/dL (8-22); CALCIUM 9.1 mg/dL (8.8-10.2); CHLORIDE 103 mmol/L (98-107); COSMO 276; CREATININE 0.7 mg/dL (0.5-0.9); ESTIMATED GFR > 60; GLUCOSE 149 mg/dL (70-104); POTASSIUM 4.5 mmol/L (3.5-5.1); SODIUM 137 mmol/L (136-145); TCO2 22 mmol/L (25-35)
[2019-06-23] MEDS ORDERED: DUONEB (A & A) INH PRN (14:51)
[2019-06-23] MEDS: BROVANA NEB INH SCH ×2 (15:08→19:56)
[2019-06-23] MEDS ORDERED: TESSALON PO ONE (15:35)
[2019-06-23] MEDS ORDERED: ROBITUSSIN-DM PO PRN (15:36)
[2019-06-23] MEDS ORDERED: BENADRYL PO SCH (21:00)
[2019-06-24] MEDS: ZITHROMAX 500 MG/NS 500 MG/250 ML IVPB IV SCH (00:13)
[2019-06-24] MEDS: LOVENOX SUBQ SCH (00:14)
[2019-06-24] MEDS: TESSALON PO SCH ×3 (00:14→15:16)
[2019-06-24] MEDS: SOLU-MEDROL IV SCH ×4 (02:16→20:58)
[2019-06-24] MEDS: DUONEB (A & A) INH SCH ×6 (04:08→23:48)
[2019-06-24 07:47] LABS: HEMATOCRIT 35.6 % (37.0-47.0); HEMOGLOBIN 10.9 g/dL (12.0-16.0); MCH 23.5 PG (27-31); MCHC 30.6 g/dL (33-37); MCV 76.7 FL (81-99); MPV 10.1 FL (7.4-10.4); RBC 4.64 XMIL (4.2-5.4); RDW 16.9 % (11.5-14.5); WBC 20.91 X1000 (4.8-10.8)
[2019-06-24] MEDS: BROVANA NEB INH SCH ×2 (07:59→20:09)
[2019-06-24 08:02] LABS: AGAP 12; BUN 12 mg/dL (8-22); CHLORIDE 102 mmol/L (98-107); COSMO 274; CREATININE 0.7 mg/dL (0.5-0.9); ESTIMATED GFR > 60; GLUCOSE 142 mg/dL (70-104); POTASSIUM 4.3 mmol/L (3.5-5.1); SODIUM 136 mmol/L (136-145); TCO2 22 mmol/L (25-35)
[2019-06-24] MEDS ORDERED: AMBIEN PO PRN (14:26)
[2019-06-24] MEDS: SINGULAIR PO SCH (15:16)
[2019-06-24] MEDS: KLONOPIN PO SCH ×2 (15:16→20:58)
--- NOTE | 2019-06-24 16:03 | PROGRESS NOTE ---
DATE: 06/24/2019 SUBJECTIVE: This patient is still complaining of shortness of breath, she is wheezing bilaterally, she has been placed on steroids, short-acting and long-acting bronchodilators, antibiotics. I will add Singulair to her medications as well. Also this patient has been really anxious and she used to take Klonopin before. I will give her a low dose twice a day to see how she does and also a low dose of Ambien as needed during the night since she has not been able to sleep. I told the patient that she that probably I will not send her home with this kind of medications. Vital signs: Temperature 98.6 degrees, pulse 96, respiratory rate 22, blood pressure 153/81, oxygen saturation 97 on oxygen. HEENT: Head normocephalic. No trauma. PERRLA. Neck: Supple. No JVD. No masses. Central trachea. Chest: Decreased breath sounds globally with prolonged expiratory phase and bilateral wheezing, some crepitus at the bases. Abdomen: Soft, nontender, nondistended. No hepatosplenomegaly. Extremities: No edema, no clubbing, no cyanosis. Neurological: The patient is awake, alert. She is oriented x3. No focal neurological deficit. LABORATORY: WBC 20.9, hemoglobin 10.9, hematocrit 35.6, platelets 372,000. Sodium 136, potassium 4.3, chloride 102, bicarbonate 22, BUN 12, creatinine 0.7, glucose 142, calcium 9. ASSESSMENT AND PLAN: 1. Likely asthma exacerbation, this patient has a history of asthma and actually she was discharged a month ago for the same issue. As per the patient, she has been taking her treatment at home. I will continue with the same management today and hopefully tomorrow will stop the IV steroids and put her on p.o. treatment. I will add montelukast to her treatment as well, likely this also can be related to seasonal allergic rhinitis which we are trying to treat as well. Also I had a conversation with this patient about gastroesophageal reflux disease which can cause also exacerbation of her asthma. She is obese with a body mass index of 42.8 so I will go ahead and start this patient on omeprazole to see how she does and will discuss antireflux management. 2. Hypertension. I do not see any medication listed on her home medications for blood pressure but she was discharged on 05/17/2019 without any blood pressure medication as well, so I will go ahead and I will start this patient on amlodipine 5 mg daily to see how she does and monitor. 3. Obesity with a body mass index of 42.8, diet and exercise has been discussed. 4. Possible gastroesophageal reflux disease, as per #1. 5. Insomnia. I will stop the Benadryl and I will give her a low dose of Ambien, will monitor. 6. Anxiety, situational. She will be on a low dose of Klonopin, let us see how she does. Likely she will be discharged home without any kind of treatment. cc: Hang Harris MD
[2019-06-24] MEDS: NORVASC PO SCH (17:51)
[2019-06-24] MEDS: PRILOSEC PO SCH (20:58)
[2019-06-24] MEDS: FLONASE NAS SCH (21:25)
[2019-06-25] MEDS: ZITHROMAX 500 MG/NS 500 MG/250 ML IVPB IV SCH (00:26)
[2019-06-25] MEDS: LOVENOX SUBQ SCH (00:26)
[2019-06-25] MEDS: TESSALON PO SCH ×3 (00:26→14:50)
[2019-06-25] MEDS: SOLU-MEDROL IV SCH ×3 (02:45→14:50)
[2019-06-25] MEDS: DUONEB (A & A) INH SCH ×3 (04:06→12:24)
[2019-06-25] MEDS: PRILOSEC PO SCH (06:15)
[2019-06-25 07:45] LABS: BASO# 0.01 X1000 (0.0-0.2); BASO% 0.1 % (0.0-0.8); EOS# 0.03 X1000 (0.0-0.7); EOS% 0.2 % (0.0-10.0); HEMATOCRIT 36.6 % (37.0-47.0); IMM GRAN# 0.11 X1000 (0.0-0.04); IMM GRAN% 0.7 % (0.0-0.5); LYMPH% 5.4 % (20.5-51.1); MCH 23.1 PG (27-31); MCHC 30.1 g/dL (33-37); MCV 76.9 FL (81-99); MONO# 0.32 X1000 (0.11-0.59); MONO% 1.9 % (1.7-9.3); MPV 9.8 FL (7.4-10.4); NEUT# 15.18 X1000 (1.4-6.5); NEUT% 91.7 % (42.2-75.2); PLT 342 X1000 (130-400); RBC 4.76 XMIL (4.2-5.4); RDW 16.8 % (11.5-14.5); WBC 16.55 X1000 (4.8-10.8)
[2019-06-25 07:59] LABS: AGAP 13; BUN 12 mg/dL (8-22); CALCIUM 8.7 mg/dL (8.8-10.2); CHLORIDE 103 mmol/L (98-107); COSMO 280; CREATININE 0.6 mg/dL (0.5-0.9); ESTIMATED GFR > 60; GLUCOSE 139 mg/dL (70-104); POTASSIUM 4.2 mmol/L (3.5-5.1); SODIUM 139 mmol/L (136-145); TCO2 23 mmol/L (25-35)
[2019-06-25 08:09] LABS: BANDS 2 % (0-1); LYMPHS 2 % (21-51); MONO 4 % (1-9); SEGS 92 % (42-75)
[2019-06-25] MEDS: KLONOPIN PO SCH (08:22)
[2019-06-25] MEDS: NORVASC PO SCH (08:22)
[2019-06-25] MEDS: SINGULAIR PO SCH (08:22)
[2019-06-25] MEDS: BROVANA NEB INH SCH (08:28)
[2019-06-25 14:37] VITALS: BP 144/68
--- NOTE | 2019-06-25 20:50 | DISCHARGE SUMMARY ---
ADMISSION DATE: 06/22/2019 DISCHARGE DATE: 06/25/2019 DISCHARGE DIAGNOSES: 1. Asthma exacerbation. 2. Hypertension. 3. Obesity with a body mass index of 42.8. 4. Possible gastroesophageal reflux disease. 5. Insomnia. 6. Anxiety, situational. PROCEDURES PERFORMED: Chest x-ray dated 06/22/2019: Impression--no evidence of acute disease. HOSPITAL COURSE: A 44-year-old, female with a past medical history of asthma, seasonal allergy, rhinitis and hypertension who was discharged a month ago due to asthma exacerbation as well. Currently she is living with her mother who actively smokes around her. She admits to having a chronic history of oculonasal pruritus and sneezing, which is part of her allergic rhinitis symptoms. Apparently those symptoms have not worsened, but a week prior to admission she states that she started having progressive shortness of breath with dry cough and episode of yellow sputum production. She denied any fever or chills. No anosmia or ageusia. No leg swelling. No PND or orthopnea. She says that this is very consistent with her usual asthma flare up. She tried to use some nebulizer at home without any success. She was admitted and she was placed on steroids and also antibiotics, as well as montelukast breathing treatment and oxygen supplementation. The patient was improving on a daily basis. She was complaining of insomnia and she used to take Ambien low dose so I put her on that as an as-needed medication. We talked about reflux on this patient as well that can cause asthma exacerbation. Since she is obese and probably she also has some sleep apnea going on I talked to her about it and I put her on omeprazole. Today she has no wheezing. She will be discharged home. I will continue with her home medications. I added amlodipine to her medications as well because of her blood pressure. She seems to be stable and she agreed with the plan. PHYSICAL EXAMINATION: Vital Signs: Temperature 97.8 degrees, pulse 93, respiratory rate 19, blood pressure 144/68, oxygen saturation 95% on room air. HEENT: Head normocephalic. No trauma. PERRLA. Neck: Supple. No JVD. No masses. Central trachea. Chest: Clear to auscultation. Prolonged expiratory phase. Mild scattered crepitus at the bases, but no wheezing. Abdomen: Soft, nontender, nondistended. No hepatosplenomegaly. Extremities: No edema, no clubbing, no cyanosis. Neurological: The patient is awake and alert. She is oriented x3. No focal neurological deficits. LABORATORY: WBC 16.5, hemoglobin 11, hematocrit 36.6, platelets 342,000. Sodium 139, potassium 4.2, chloride 103, bicarbonate 23, BUN 12, creatinine 0.6, glucose 139, calcium 8.7. DISCHARGE MEDICATIONS: Albuterol sulfate inhaler 2 puffs inhaler every 3 hours as needed, amlodipine 5 mg p.o. daily, azithromycin 250 mg p.o. daily x3 doses, Flonase 2 sprays intranasally at bedtime, Breo Ellipta 100-25 mcg inhaler 1 puff daily, Robitussin-DM 10 mL p.o. every 4 hours as needed, Medrol Dosepak as directed, montelukast 10 mg p.o. daily, omeprazole 40 mg p.o. b.i.d., and zolpidem 5 mg p.o. at bedtime as needed for insomnia. cc: Hang Harris MD
== END 2019-06-25 16:29 | disposition home or self-care (01) | DRG 202 ==
LOC: ED 18:55 → 3N 23:44 → SUATTDRO 23:44
PROVIDERS: ATTEND Internal Medicine